=== PATIENT | male | born 1945 | race Caucasian/White ===

== ENCOUNTER 2016-05-28 20:16 | Outpatient (CLI) | payer MEDICARE, MEDICAID ==
[2016-05-28 13:08] LABS: BASOPHILS % (AUTO) 0.7 %; EOSINOPHILS # (AUTO) 0.4 10^3/uL (0.0-0.7); EOSINOPHILS % (AUTO) 6.3 %; HCT - HEMATOCRIT 39.4 % (42.0-52.0); HGB - HEMOGLOBIN 13.4 g/dL (14.0-18.0); LYMPHOCYTES # (AUTO) 0.8 10^3/uL (1.5-3.5); LYMPHOCYTES % (AUTO) 13.6 %; MEAN CORPUSCULAR HEMOGLOBIN 32.2 pg (27.0-31.0); MEAN CORPUSCULAR HGB CONC 33.9 g/dL (32.0-36.0); MEAN CORPUSCULAR VOLUME 94.9 fL (80.0-94.0); MEAN PLATELET VOLUME 10.9 fL (7.4-11.4); MONOCYTES # (AUTO) 0.4 10^3/uL (0.0-1.0); MONOCYTES % (AUTO) 6.2 %; NEUTROPHILS # (AUTO) 4.2 10^3/uL (1.5-6.6); NEUTROPHILS % (AUTO) 73.2 %; NUCLEATED RED BLOOD CELLS AUTO 0.1 /100WBC; RED BLOOD COUNT 4.15 10^6/uL (4.70-6.10); RED CELL DISTRIBUTION WIDTH 15.6 % (12.0-15.0); UNCORRECTED WHITE BLOOD COUNT 5.7 x10^3/uL; WHITE BLOOD COUNT 5.7 x10^3/uL (4.8-10.8)
[2016-05-28 13:18] LABS: ALBUMIN/GLOBULIN RATIO 1.7 (1.0-2.2); BILIRUBIN,TOTAL 0.6 mg/dL (0.2-1.0); BUN - BLOOD UREA NITROGEN 22 mg/dL (6-20); CALCIUM 9.2 mg/dL (8.5-10.3); CARBON DIOXIDE - CO2 27 mmol/L (21-32); CHLORIDE 107 mmol/L (101-111); CHOL/HDL RATIO 3.7 (<5.0); CHOLESTEROL 157 mg/dL; GFR - MDRD 73 (>89); GLUCOSE 105 mg/dL (70-100); HDL CHOLESTEROL 43 mg/dL; LDL/HDL RATIO 2.2 (<3.6); POTASSIUM 4.3 mmol/L (3.5-5.0); SODIUM 142 mmol/L (135-145); TOTAL PROTEIN 6.1 g/dL (6.7-8.2); TRIGLYCERIDES 93 mg/dL; VLDL CHOLESTEROL 19 mg/dL
== END 2016-05-28 20:17 | disposition home or self-care (01) ==
LOC: LAB.N 20:16
PROVIDERS: ATTEND Family Medicine
DX: I10 Essential (primary) hypertension (principal); E78.9 Disorder of lipoprotein metabolism, unspecified; D64.9 Anemia, unspecified
CPT/HCPCS: 36415; 80053; 80061; 85025

== ENCOUNTER 2016-08-20 06:10 | Day surgery (SDC) | payer MEDICARE, MEDICAID ==
[2016-08-20] MEDS ORDERED: LACTATED RINGERS 1,000 ML IV ONE (06:31)
[2016-08-20] MEDS ORDERED: DEXAMETHASONE 4 MG/ML VIAL IVP ONE (07:55)
[2016-08-20] MEDS ORDERED: PROPOFOL 200 MG/20 ML VIAL IVP ONE (07:55)
[2016-08-20] MEDS ORDERED: LIDOCAINE-MPF 2% 5 ML VIAL IM ONE (07:55)
[2016-08-20] MEDS ORDERED: fentaNYL 100 MCG/2 ML VIAL IVP ONE (07:55)
[2016-08-20] MEDS ORDERED: ONDANSETRON 4 MG/2 ML VIAL IVP ONE (07:55)
[2016-08-20] MEDS ORDERED: MIDAZOLAM 2 MG/2 ML VIAL IVP ONE (07:55)
[2016-08-20] MEDS ORDERED: ceFAZolin 1 GM VIAL IV ONE (07:55)
[2016-08-20] MEDS ORDERED: BUPIVACAINE 0.25% PF 30 ML VIAL SUBQ ONE ×2 (08:01)
[2016-08-20 09:41] VITALS: BP 121/80
[2016-08-20] MEDS ORDERED: ACETAMINOPHEN 325 MG TABLET PO ONE (09:43)
--- NOTE | 2016-08-20 11:47 | OPERATIVE REPORT ---
DATE OF SURGERY: 08/20/2016 00:00:00 PREOPERATIVE DIAGNOSIS: History of melanoma and skin cancer with preauricular lymphadenopathy. POSTOPERATIVE DIAGNOSIS: History of melanoma and skin cancer with preauricular lymphadenopathy. NAME OF PROCEDURE: Right preauricular lymph node biopsy. SURGEON: Sherine Hardign MD ANESTHESIA: General. INDICATION FOR PROCEDURE: This is a 70-year-old male with right-sided preauricular lymphadenopathy status post excision of ear melanoma many years ago. FINDINGS: After obtaining informed consent from the patient, he was brought into the operating room and positioned on the operating table in the supine position, taking note of pressure points. Perioperative antibiotics were administered. He was intubated by Anesthesia. He was then prepped and draped in the usual sterile fashion and a time-out was taken according to protocol. A 1.5 cm incision was created overlying the palpable lymph node and skin flaps were created. A hemorrhagic-appearing lymph node was encountered, this was partially dissected and removed as a specimen. After exercising adequate tissue, hemostasis was achieved. A portion of the hemorrhagic-appearing lymph node was left behind because this did travel deep and concern for the underlying facial nerve prevented further dissection. Adequate amount of tissue was resected for pathologic review. The area was irrigated, hemostasis was achieved, and 10 mL of local anesthetic was infiltrated. The skin was then closed with 4-0 Monocryl and Dermabond was applied. ESTIMATED BLOOD LOSS: None. COMPLICATIONS: None. JOB #: [id number] EXT JOB #:[id number] MTDD
== END 2016-08-20 06:11 | disposition home or self-care (01) ==
LOC: SDS 06:10
PROVIDERS: ATTEND Surgery
PROC: 07B00ZX Excision of Head Lymphatic, Open Approach, Diagnostic (ICD-10-PCS; principal; 2016-08-20 07:30)
DX: C77.0 Secondary and unspecified malignant neoplasm of lymph nodes of head, face and neck (principal); I10 Essential (primary) hypertension; I48.91 Unspecified atrial fibrillation; Z79.82 Long term (current) use of aspirin; Z82.49 Family history of ischemic heart disease and other diseases of the circulatory system; Z85.820 Personal history of malignant melanoma of skin; Z92.21 Personal history of antineoplastic chemotherapy
CPT/HCPCS: 38500; A9270; J7120; 88305

== ENCOUNTER 2016-10-02 15:46 | Emergency (ER) | payer MEDICARE, MEDICAID ==
[2016-10-02] MEDS ORDERED: FUROSEMIDE 20 MG/2 ML VIAL IVP STA (16:53)
--- NOTE | 2016-10-02 17:20 | XRAY Preliminary Report ---
Exam: XR Chest 1 View IMPRESSION: 1. Pulmonary venous distention and trace pleural effusion suggesting mild fluid overload. [facility] SITE ID: [id number]
--- NOTE | 2016-10-02 17:22 | XRAY Report ---
EXAM: CHEST RADIOGRAPHY EXAM DATE: 10/02/2016 05:04 PM. CLINICAL HISTORY: Dyspnea. COMPARISON: 03/25/2014. TECHNIQUE: 1 view. FINDINGS: Lungs/Pleura: Pulmonary venous distention. Trace bilateral pleural effusions. There is no overt edema . No lobar consolidation. No pneumothorax. Mediastinum: Within exam limitations, cardiomediastinal contour is normal. Other: Left chest port noted. IMPRESSION: 1. Pulmonary venous distention and trace pleural effusion suggesting mild fluid overload. [facility] Referring Provider Line: [phone] SITE ID: [id number]
[2016-10-02] MEDS ORDERED: FUROSEMIDE 20 MG/2 ML VIAL IVP ONE (17:28)
--- NOTE | 2016-10-02 17:30 | ED Physician Documentation ---
PD HPI DYSPNEA - Stated complaint Stated Complaint: SOA - Chief complaint Chief Complaint: Resp - History obtained from History obtained from: Patient - History of Present Illness Timing - onset: How many weeks ago (2) Timing - details: Gradual onset Worsened by: Exertion Associated symptoms: Bilateral edema. No: Fever, Cough, Chest pain / discomfort Recently seen: Clinic (Seen in clinic by his oncologist today for routine follow -up visit.) - Additional information Additional information: The patient is a 71-year-old male who presents with dyspnea and recent weight gain of 10-12 pounds over the past 2 weeks or so. He has noticed swelling of his feet, ankles, and calves. He denies chest pain, cough, or fever. He has a history of atrial fibrillation, but is not on anticoagulant medication. He also has history of lymphoma that was diagnosed in 2012. He has been off chemotherapy for about one year, and is reportedly in complete remission. He was seen by his oncologist today, and because of the weight gain and edema, he was advised to come to the emergency department for evaluation. He denies any prior history of coronary artery disease, congestive heart failure , or renal problems. He has chronic atrial fibrillation, with rate control using diltiazem. Review of Systems Constitutional: denies: Fever Ears: denies: Tinnitus/ringing Nose: denies: Congestion Throat: denies: Sore throat Cardiac: reports: Pedal edema. denies: Chest pain / pressure, Calf pain Respiratory: reports: Dyspnea. denies: Cough GI: denies: Abdominal Pain, Nausea, Vomiting : denies: Dysuria Skin: denies: Rash Musculoskeletal: reports: Extremity swelling. denies: Back pain Neurologic: denies: Focal weakness, Numbness, Headache PD PAST MEDICAL HISTORY - Past Medical History Past Medical History: Yes Cardiovascular: Atrial fibrillation, Other Respiratory: None Endocrine/Autoimmune: None GI: GERD : None, Renal insuffiency HEENT: None Psych: Panic attacks Musculoskeletal: None Derm: Other Other Past Medical History: lymphoma - Past Surgical History Past Surgical History: Yes General: Hiatal hernia repair HEENT: Other Derm: Skin cancer surgery - Present Medications Home Medications: Ambulatory Orders Medication Instructions Recorded Confirmed Terazosin HCl 10 mg PO DAILY 04/21/13 10/02/16 Docusate Sodium [Stool Softener] 300 mg PO DAILY 03/01/14 10/02/16 Aspirin [Aspir 81] 81 mg PO DAILY 04/06/14 10/02/16 diltiaZEM CD [Cardizem Cd] 240 mg PO DAILY 04/06/14 10/02/16 Furosemide [Lasix] 20 mg PO DAILY #30 tablet 10/02/16 Potassium Chloride [K-Dur] 20 meq PO DAILY #30 tablet 10/02/16 - Allergies Allergies/Adverse Reactions: Allergies Allergy/AdvReac Type Severity Reaction Status Date / Time No Known Drug Allergies Allergy Verified 08/20/16 06:53 - Living Situation Living Situation: reports: With spouse/s.o. Living Arrangement: reports: At home - Social History Does the pt smoke?: No Smoking Status: Never smoker Does the pt drink ETOH?: No Does the pt have substance abuse?: No - Immunizations Immunizations are current?: Yes Immunizations: TDAP current <10years PD ED PE NORMAL - Vitals Vital signs reviewed: Yes (mildly tachycardic) - General General: Alert and oriented X 3, Well developed/nourished - HEENT HEENT: Atraumatic, EOMI, Pharynx benign - Neck Neck: No adenopathy, No JVD - Cardiac Cardiac: No murmur, Other (Slightly rapid rate, irregularly irregular rhythm.) - Respiratory Respiratory: No respiratory distress, Other (Very faint rales in the bases bilaterally. Port-A-Cath in the left anterior chest wall.) - Abdomen Abdomen: Soft, Non tender - Back Back: No CVA TTP - Derm Derm: No rash, Other (There is a darkly pigmented skin mass of about 1 cm diameter in the right preauricular region.) - Extremities Extremities: No calf tenderness / cord, Other (2+ pedal edema bilaterally.) - Neuro Neuro: Alert and oriented X 3, No motor deficit, No sensory deficit Results - Vitals Vitals: Vital Signs - 24 hr 10/02/16 10/02/16 10/02/16 15:49 19:39 19:56 Temperature 36.4 C L 36.9 C Heart Rate 104 H 93 96 Respiratory 22 17 22 Rate Blood Pressure 123/87 H 109/79 113/72 O2 Saturation 98 94 96 Oxygen O2 Source Room air - EKG (time done) 17:06 Rate: Rate (enter#) (94) Rhythm: Atrial fibrillation, Other (PVC's) [place]: Normal Intervals: RBBB Ischemia: Q waves (in inferior leads III and aVF, consistent with old [place].) Compare to prior EKG: Changed from prior EKG (Compared to 10/27/15, no longer in sinus bradycardia.) Computer interpretation: Agree with computer - Labs Labs: Laboratory Tests 10/02/16 10/02/16 10/02/16 17:20 17:20 17:20 WBC 6.4 RBC 3.78 L Hgb 11.8 L Hct 35.3 L MCV 93.5 MCH 31.2 H MCHC 33.3 RDW 15.0 Plt Count 104 L MPV 10.9 Neut # 5.0 Lymph # 0.5 L [place] # 0.6 Eos # 0.3 Baso # 0.0 Absolute Nucleated RBC 0.00 Nucleated RBCs 0.0 Sodium 140 Potassium 4.5 Chloride 107 Carbon Dioxide 23 Anion Gap 10.0 BUN 28 H Creatinine 1.2 Estimated GFR (MDRD) 59 L Glucose 103 H Calcium 9.0 Total Bilirubin 0.7 AST 24 ALT 28 Alkaline Phosphatase 79 Troponin I < 0.04 B-Natriuretic Peptide Total Protein 6.2 L Albumin 3.7 Globulin 2.5 Albumin/Globulin Ratio 1.5 Lipase 17 L Urine Color Urine Clarity Urine pH Ur Specific [place] Urine Protein Urine Glucose (UA) Urine Ketones Urine Occult Blood Urine Nitrite Urine Bilirubin Urine Urobilinogen Ur Leukocyte Esterase Ur Microscopic Review Urine Culture Comments 10/02/16 10/02/16 17:20 18:10 WBC RBC Hgb Hct MCV MCH MCHC RDW Plt Count MPV Neut # Lymph # [place] # Eos # Baso # Absolute Nucleated RBC Nucleated RBCs Sodium Potassium Chloride Carbon Dioxide Anion Gap BUN Creatinine Estimated GFR (MDRD) Glucose Calcium Total Bilirubin AST ALT Alkaline Phosphatase Troponin I B-Natriuretic Peptide 965 H Total Protein Albumin Globulin Albumin/Globulin Ratio Lipase Urine Color YELLOW Urine Clarity CLEAR Urine pH 6.0 Ur Specific [place] 1.010 Urine Protein NEGATIVE Urine Glucose (UA) NEGATIVE Urine Ketones NEGATIVE Urine Occult Blood NEGATIVE Urine Nitrite NEGATIVE Urine Bilirubin NEGATIVE Urine Urobilinogen 0.2 (NORMAL) Ur Leukocyte Esterase NEGATIVE Ur Microscopic Review NOT INDICATED Urine Culture Comments NOT INDICATED - Rads (name of study) One view chest x-ray Radiology: Prelim report reviewed, EMP read contemporaneously, See rad report ( Pulmonary venous distention and trace pleural effusion suggesting mild fluid overload.) PD MEDICAL DECISION MAKING - ED course Complexity details: reviewed results, re-evaluated patient, considered differential, d/w patient, d/w family ED course: The patient's presentation is most consistent with [id number] congestive heart failure, in a person with chronic atrial fibrillation. His BNP is elevated at 965. His CBC and chemistry panel are otherwise unremarkable. His electrocardiogram does not reveal evidence of acute ischemic abnormality, and his troponin level is normal. Pulmonary embolus was considered, especially given the fact that he has atrial fibrillation without being on anticoagulant medication. However clinically, pulmonary embolus is less likely. Treatment in the emergency department included administration of Lasix 20 mg IV. He subsequently had urine output of approximately 1.5 L. He felt subjectively improved, and demonstrated ability to lie supine without shortness of breath. I discussed with him and his the diagnosis, treatment and outpatient follow-up, as well as potentially worrisome signs or symptoms that should prompt reevaluation in the emergency department. He is being discharged with prescriptions for Lasix, as well as supplemental potassium. Departure - Departure Disposition: 01 Home, Self Care Clinical Impression: Congestive heart failure Qualifiers: Congestive heart failure type: unspecified congestive heart failure type Congestive heart failure chronicity: acute Qualified Code(s): I50.9 - Heart failure, unspecified Atrial fibrillation Qualifiers: Atrial fibrillation type: chronic Qualified Code(s): I48.2 - Chronic atrial fibrillation Condition: Stable Instructions: ED CHF General, ED Afib Follow-Up: Reji Bronson MD [Credentialed Staff Provider] - Prescriptions: Potassium Chloride [K-Dur] 20 meq PO DAILY #30 tablet Furosemide [Lasix] 20 mg PO DAILY #30 tablet Comments: Take Lasix(furosemide) daily as prescribed. Takes supplemental potassium daily as prescribed. When yourself daily to assess response to diuretic. Follow up with your primary physician next week as scheduled. Return to the emergency department if you develop increasing shortness of breath , or otherwise worsening symptoms. Discharge Date/Time: 10/02/16 19:56
[2016-10-02 17:36] LABS: BASOPHILS % (AUTO) 0.2 %; EOSINOPHILS # (AUTO) 0.3 10^3/uL (0.0-0.7); EOSINOPHILS % (AUTO) 4.9 %; HCT - HEMATOCRIT 35.3 % (42.0-52.0); HGB - HEMOGLOBIN 11.8 g/dL (14.0-18.0); LYMPHOCYTES # (AUTO) 0.5 10^3/uL (1.5-3.5); LYMPHOCYTES % (AUTO) 8.4 %; MEAN CORPUSCULAR HEMOGLOBIN 31.2 pg (27.0-31.0); MEAN CORPUSCULAR HGB CONC 33.3 g/dL (32.0-36.0); MEAN CORPUSCULAR VOLUME 93.5 fL (80.0-94.0); MEAN PLATELET VOLUME 10.9 fL (7.4-11.4); MONOCYTES # (AUTO) 0.6 10^3/uL (0.0-1.0); MONOCYTES % (AUTO) 9.3 %; NEUTROPHILS % (AUTO) 77.2 %; RED BLOOD COUNT 3.78 10^6/uL (4.70-6.10); UNCORRECTED WHITE BLOOD COUNT 6.4 x10^3/uL; WHITE BLOOD COUNT 6.4 x10^3/uL (4.8-10.8)
[2016-10-02 17:45] LABS: ALBUMIN/GLOBULIN RATIO 1.5 (1.0-2.2); BILIRUBIN,TOTAL 0.7 mg/dL (0.2-1.0); CREATININE 1.2 mg/dL (0.6-1.2); POTASSIUM 4.5 mmol/L (3.5-5.0); TOTAL PROTEIN 6.2 g/dL (6.7-8.2)
[2016-10-02 18:15] LABS: BILIRUBIN,URINE NEGATIVE (NEGATIVE)
[2016-10-02 18:19] LABS: UA CHARGE (STRIP ONLY) YES; UR CULTURE IF IND NOT INDICATED
[2016-10-02 19:59] VITALS: BP 113/72
== END 2016-10-02 19:56 | disposition home or self-care (01) ==
LOC: ED 15:46
DX: I50.9 Heart failure, unspecified (principal); I48.2 Chronic atrial fibrillation; I45.10 Unspecified right bundle-branch block; R94.31 Abnormal electrocardiogram [ECG] [EKG]; K21.9 Gastro-esophageal reflux disease without esophagitis; Z79.82 Long term (current) use of aspirin
CPT/HCPCS: 71010; 80053; 81001; 81003; 83690; 83880; 84484; 85025; 87086; 93005; 99283

== ENCOUNTER 2016-10-10 14:07 | Outpatient (CLI) | payer MEDICARE, MEDICAID ==
[2016-10-10 19:25] LABS: HCT - HEMATOCRIT 37.3 % (42.0-52.0); HGB - HEMOGLOBIN 12.3 g/dL (14.0-18.0); MEAN CORPUSCULAR HEMOGLOBIN 30.8 pg (27.0-31.0); MEAN CORPUSCULAR VOLUME 93.1 fL (80.0-94.0); MEAN PLATELET VOLUME 11.5 fL (7.4-11.4); WHITE BLOOD COUNT 5.6 x10^3/uL (4.8-10.8)
[2016-10-10 19:30] LABS: ALBUMIN/GLOBULIN RATIO 1.6 (1.0-2.2); CALCIUM 9.2 mg/dL (8.5-10.3); CREATININE 1.3 mg/dL (0.6-1.2); POTASSIUM 4.5 mmol/L (3.5-5.0); TOTAL PROTEIN 6.4 g/dL (6.7-8.2)
== END 2016-10-10 14:08 | disposition home or self-care (01) ==
LOC: LAB.N 14:07
PROVIDERS: ATTEND Family Medicine
DX: I50.23 Acute on chronic systolic (congestive) heart failure (principal)
CPT/HCPCS: 36415; 80053; 83880

== ENCOUNTER 2016-10-16 19:08 | Emergency (ER) | payer MEDICARE, MEDICAID ==
[2016-10-16] MEDS ORDERED: FUROSEMIDE 20 MG/2 ML VIAL IVP STA (20:09)
[2016-10-16] MEDS ORDERED: FUROSEMIDE 20 MG/2 ML VIAL IVP ONE (20:10)
== END 2016-10-16 21:22 | disposition home or self-care (01) ==
DX: I50.9 Heart failure, unspecified (principal); I48.2 Chronic atrial fibrillation; K21.9 Gastro-esophageal reflux disease without esophagitis; Z79.82 Long term (current) use of aspirin

== ENCOUNTER 2016-10-27 14:47 | Emergency (ER) | payer MEDICARE, MEDICAID ==
--- NOTE | 2016-10-27 15:33 | ED Physician Documentation ---
PD HPI CHEST PAIN - Stated complaint Stated Complaint: CHEST BURNING - Chief complaint Chief Complaint: Abd Pain - History obtained from History obtained from: Patient - History of Present Illness Timing - onset: Today Timing - onset during: Eating (he had eaten small amount and then had some V-8 juice, with onset of substernal chest pressure soon following that. Not worse with breathing nor walking.) Timing - details: Gradual onset, Still present, Waxing and waning. No: Now resolved Quality: Pressure, Aching, Pain Location: Substernal, Epigastric Radiation: No: Jaw, Neck, Back, Abdominal, Left upper extremity, Right upper extremity, Other Improved by: Antacids Worsened by: No: Exertion (walking some since onset), Inspiration, Movement, Palpation, Position Associated symptoms: No: Shortness of air, Diaphoresis, Nausea, Vomiting, Feeling faint / dizzy, General Weakness, Palpitations, Cough Similar symptoms before: Has not had sx before Recently seen: Not recently seen Review of Systems Constitutional: denies: Fever, Chills Nose: denies: Rhinorrhea / runny nose, Congestion Throat: denies: Sore throat Cardiac: reports: Chest pain / pressure (just today, has not had any exertional symptoms in recent past.). denies: Palpitations, Pedal edema, Calf pain Respiratory: denies: Cough GI: denies: Nausea, Vomiting, Diarrhea Skin: denies: Rash, Lesions Musculoskeletal: reports: Extremity swelling (had some swelling in lower legs/ ankles, which is improved with diuretics the past couple of weeks.). denies: Neck pain, Back pain Neurologic: denies: Focal weakness, Numbness, Near syncope Immunocompromised: denies: Immunocompromised PD PAST MEDICAL HISTORY - Past Medical History Cardiovascular: Atrial fibrillation, Other Respiratory: None Endocrine/Autoimmune: None GI: GERD : None, Renal insuffiency HEENT: None Psych: Panic attacks Musculoskeletal: None Derm: Other - Past Surgical History Past Surgical History: Yes General: Hiatal hernia repair HEENT: Other Derm: Skin cancer surgery - Present Medications Home Medications: Ambulatory Orders Medication Instructions Recorded Confirmed Terazosin HCl 10 mg PO DAILY 04/21/13 10/02/16 Docusate Sodium [Stool Softener] 300 mg PO DAILY 03/01/14 10/02/16 Aspirin [Aspir 81] 81 mg PO DAILY 04/06/14 10/02/16 diltiaZEM CD [Cardizem Cd] 240 mg PO DAILY 04/06/14 10/02/16 Furosemide [Lasix] 20 mg PO BID 10/27/16 10/27/16 Spironolactone 25 mg PO BID 10/27/16 10/27/16 - Allergies Allergies/Adverse Reactions: Allergies Allergy/AdvReac Type Severity Reaction Status Date / Time No Known Drug Allergies Allergy Verified 10/27/16 15:02 - Social History Does the pt smoke?: No Smoking Status: Never smoker Does the pt drink ETOH?: No Does the pt have substance abuse?: No - Immunizations Immunizations are current?: Yes Immunizations: TDAP current <10years PD ED PE NORMAL - Vitals Vital signs reviewed: Yes - General General: Alert and oriented X 3, No acute distress, Well developed/nourished - HEENT HEENT: Ears normal, Moist mucous membranes, Pharynx benign - Neck Neck: Supple, no meningeal sign, No adenopathy - Cardiac Cardiac: No murmur. No: RRR (irregular but good rate. ) - Respiratory Respiratory: Clear bilaterally - Abdomen Abdomen: Normal bowel sounds, Soft, Non distended, No organomegaly, Other (mild epigastric tenderness without guarding. ) - Back Back: No CVA TTP - Derm Derm: Normal color, Warm and dry - Extremities Extremities: Normal ROM s pain, No edema, No calf tenderness / cord - Neuro Neuro: Alert and oriented X 3, No motor deficit, Normal speech - Psych Psych: Normal mood, Normal affect Results - Vitals Vitals: Oxygen O2 Source Room air - EKG (time done) 15:12 Rate: Rate (enter#) (77) Rhythm: Atrial fibrillation [place]: Normal Intervals: Wide QRS QRS: Normal Ischemia: No: ST elevation c/w ischemia, ST depression - Labs Labs: Laboratory Tests 10/27/16 10/27/16 10/27/16 15:28 15:28 15:28 WBC 5.9 RBC 4.43 L Hgb 13.3 L Hct 39.8 L MCV 89.9 MCH 30.2 MCHC 33.5 RDW 15.4 H Plt Count 122 L MPV 11.0 Neut # 4.6 Lymph # 0.5 L [place] # 0.4 Eos # 0.4 Baso # 0.0 Absolute Nucleated RBC 0.00 Nucleated RBCs 0.0 Manual Slide Review Indicated Platelet Estimate DECREASED (<130,000) Platelet Morphology RARE GIANT PLATELETS RBC Morph Micro Appear NORMAL APPEARANCE Sodium 134 L Potassium 4.9 Chloride 99 L Carbon Dioxide 29 Anion Gap 6.0 BUN 49 H Creatinine 1.7 H Estimated GFR (MDRD) 40 L Glucose 230 H Calcium 9.4 Magnesium Total Bilirubin 1.0 AST 31 ALT 32 Alkaline Phosphatase 86 Troponin I < 0.04 Total Protein 7.0 Albumin 4.3 Globulin 2.7 Albumin/Globulin Ratio 1.6 Lipase 24 10/27/16 15:28 WBC RBC Hgb Hct MCV MCH MCHC RDW Plt Count MPV Neut # Lymph # [place] # Eos # Baso # Absolute Nucleated RBC Nucleated RBCs Manual Slide Review Platelet Estimate Platelet Morphology RBC Morph Micro Appear Sodium Potassium Chloride Carbon Dioxide Anion Gap BUN Creatinine Estimated GFR (MDRD) Glucose Calcium Magnesium 2.5 Total Bilirubin AST ALT Alkaline Phosphatase Troponin I Total Protein Albumin Globulin Albumin/Globulin Ratio Lipase PD MEDICAL DECISION MAKING - ED course Complexity details: reviewed results (creatinine is higher than usual, with it 1.7 and typically 1.2. Also BP relatively low ( says it is usually somewhat low at 95-110 systolic). He feels okay getting to the ER. Presume overly diuresed (though his breathing is better) and also likely effect of the recently added Tamsulosin. ), considered differential, d/w patient Departure - Departure Disposition: 01 Home, Self Care Clinical Impression: Elevated serum creatinine, Epigastric discomfort, Low blood pressure, not hypotension Condition: Stable Record reviewed to determine appropriate education?: Yes Instructions: ED Epigastric Pain [facility] Follow-Up: Reji Bronson MD [Primary Care Provider] - Comments: I would adjust some of your medications for now: take the Terazosin every other day as your BP is a relatively low. Check your BP daily to see how it is trending. Your Creatinine is a bit higher than usual, which can be an effect of too much diuretic, so cut down the Spironolactone to just once daily. Other medications the same. Follow up PMD as scheduled in about 2 weeks. For the "heartburn" pain, you can use antacids as needed. Recheck if persistent symptoms , as may need to start a med to reduce stomach acids. Not necessarily if a single episode and doesn't recur. Discharge Date/Time: 10/27/16 17:15
[2016-10-27 15:42] LABS: BASOPHILS % (AUTO) 0.8 %; EOSINOPHILS # (AUTO) 0.4 10^3/uL (0.0-0.7); EOSINOPHILS % (AUTO) 6.1 %; HCT - HEMATOCRIT 39.8 % (42.0-52.0); HGB - HEMOGLOBIN 13.3 g/dL (14.0-18.0); LYMPHOCYTES # (AUTO) 0.5 10^3/uL (1.5-3.5); LYMPHOCYTES % (AUTO) 8.7 %; MEAN CORPUSCULAR HEMOGLOBIN 30.2 pg (27.0-31.0); MEAN CORPUSCULAR HGB CONC 33.5 g/dL (32.0-36.0); MEAN CORPUSCULAR VOLUME 89.9 fL (80.0-94.0); MONOCYTES # (AUTO) 0.4 10^3/uL (0.0-1.0); MONOCYTES % (AUTO) 6.2 %; NEUTROPHILS # (AUTO) 4.6 10^3/uL (1.5-6.6); NEUTROPHILS % (AUTO) 78.2 %; RED BLOOD COUNT 4.43 10^6/uL (4.70-6.10); RED CELL DISTRIBUTION WIDTH 15.4 % (12.0-15.0); UNCORRECTED WHITE BLOOD COUNT 5.9 x10^3/uL; WHITE BLOOD COUNT 5.9 x10^3/uL (4.8-10.8)
[2016-10-27 15:53] LABS: ALBUMIN/GLOBULIN RATIO 1.6 (1.0-2.2); CALCIUM 9.4 mg/dL (8.5-10.3); CREATININE 1.7 mg/dL (0.6-1.2); POTASSIUM 4.9 mmol/L (3.5-5.0)
[2016-10-27 15:58] LABS: PLATELET ESTIMATE, MANUAL DECREASED (<130,000) (NORMAL)
[2016-10-27 15:59] LABS: PLATELET MORPHOLOGY RARE GIANT PLATELETS (NORMAL)
[2016-10-27] MEDS ORDERED: MAG HYDROX/AL HYDROX/SIMETH 30 ML UDC PO STA (16:05)
[2016-10-27] MEDS ORDERED: MAG HYDROX/AL HYDROX/SIMETH 30 ML UDC ONE ×2 (16:16→16:23)
[2016-10-27 17:14] VITALS: BP 103/60
== END 2016-10-27 17:15 | disposition home or self-care (01) ==
LOC: ED 14:47
DX: R10.13 Epigastric pain (principal); R79.89 Other specified abnormal findings of blood chemistry; R03.1 Nonspecific low blood-pressure reading; I48.91 Unspecified atrial fibrillation; I45.10 Unspecified right bundle-branch block; R94.31 Abnormal electrocardiogram [ECG] [EKG]; K21.9 Gastro-esophageal reflux disease without esophagitis
CPT/HCPCS: 36415; 80053; 83690; 83735; 84484; 85025; 93005; 99283; 99284; A9270

== ENCOUNTER 2016-11-09 08:55 | Outpatient (CLI) | payer MEDICARE, MEDICAID ==
[2016-11-09 13:24] LABS: CALCIUM 9.6 mg/dL (8.5-10.3); CREATININE 1.6 mg/dL (0.6-1.2); POTASSIUM 4.6 mmol/L (3.5-5.0)
== END 2016-11-09 08:56 | disposition home or self-care (01) ==
LOC: LAB.N 08:55
PROVIDERS: ATTEND Family Medicine
DX: R60.0 Localized edema (principal)
CPT/HCPCS: 36415; 80048; 83880

== ENCOUNTER 2016-11-30 08:25 | Outpatient (CLI) | payer MEDICARE, MEDICAID ==
[2016-11-30 13:16] LABS: CREATININE 1.2 mg/dL (0.6-1.2); POTASSIUM 4.1 mmol/L (3.5-5.0)
== END 2016-11-30 08:26 | disposition home or self-care (01) ==
LOC: LAB.N 08:25
PROVIDERS: ATTEND Family Medicine
DX: R60.0 Localized edema (principal)
CPT/HCPCS: 36415; 80048; 83880

== ENCOUNTER 2016-12-21 10:54 | Outpatient (CLI) | payer MEDICARE, MEDICAID ==
[2016-12-21 11:24] LABS: CREATININE 1.2 mg/dL (0.6-1.2)
[2016-12-21] MEDS ORDERED: IOPAMIDOL-300 50 ML VIAL PO ONE (12:43)
[2016-12-21] MEDS ORDERED: IOPAMIDOL-300 100 ML VIAL IVP ONE (12:43)
--- NOTE | 2016-12-21 14:54 | CT Report ---
CT CHEST WITH CONTRAST: 12/21/2016 CLINICAL INDICATION: Melanoma, evaluate for metastatic disease. COMPARISON: 07/30/2016 TECHNIQUE: Axial CT images of the chest were obtained with 100 mL Isovue-300 intravenously. FINDINGS: The heart and great vessels are unremarkable. No hilar or mediastinal lymphadenopathy is present. There has been interval development of multiple bilateral pulmonary nodules, measuring up t o 2.2 cm in diameter, compatible with metastases. Previously noted trace left effusion has resolved. No pneumothorax. IMPRESSION: INTERVAL DEVELOPMENT OF MULTIPLE PULMONARY NODULES, MEASURING UP TO 2.2 CM IN DIAMETER, COMPATIBLE WITH METASTASES. NO EVIDENT ADENOPATHY. In accordance with CT protocol optimization, one or more of the following dose reduction techniques w ere utilized for this exam: automated exposure control, adjustment of mA and/or KV based on patient size, or use of iterative reconstructive technique. JOB #: [id number] EXT JOB #:[id number]
--- NOTE | 2016-12-21 14:56 | CT Report ---
CT ABDOMEN AND PELVIS WITH CONTRAST: 12/21/2016 CLINICAL INDICATION: Melanoma. COMPARISON: 07/30/2016 TECHNIQUE: Axial CT images of the abdomen and pelvis were obtained with 100 mL Isovue-300 intravenou sly as well as oral contrast. FINDINGS: ABDOMEN: The liver demonstrates diffuse fatty infiltration. Small cyst in the spleen is stable. Th e pancreas, kidneys, and adrenal glands are unremarkable. The gallbladder is not dilated. Haziness of the mesentery is stable from previous. No bowel dilatation, free gas, or free fluid is present. No abdominal adenopathy is seen. PELVIS: Trace free fluid in the pelvis is stable. No new pelvic adenopathy is seen. Osseous structures demonstrate degenerative changes. IMPRESSION: FATTY INFILTRATION OF THE LIVER. NO EVIDENCE OF ADENOPATHY. In accordance with CT protocol optimization, one or more of the following dose reduction techniques w ere utilized for this exam: automated exposure control, adjustment of mA and/or KV based on patient size, or use of iterative reconstructive technique. 14:9:30 JOB #: [id number] EXT JOB #:[id number]
== END 2016-12-21 10:55 | disposition home or self-care (01) ==
LOC: LAB 10:54
PROVIDERS: ATTEND Radiology Radiation Oncology
DX: R91.8 Other nonspecific abnormal finding of lung field (principal); K76.0 Fatty (change of) liver, not elsewhere classified
CPT/HCPCS: 36415; 71260; 74177; 82565; Q9967

== ENCOUNTER 2017-05-08 15:52 | Emergency (ER) | payer MEDICARE, MEDICAID ==
[2017-05-08] MEDS ORDERED: diltiaZEM INJ 5 MG/ML VIAL IVP STA ×3 (16:45→20:12)
--- NOTE | 2017-05-08 16:46 | ED Physician Documentation ---
PD HPI DYSPNEA - Stated complaint Stated Complaint: ANXIETY - Chief complaint Chief Complaint: Cardiac - History obtained from History obtained from: Patient - History of Present Illness Timing - onset: How many hours ago (onset of feeling dyspnea and chest pressure (not sharp pain) and feeling anxious. Seemed to be abrupt onset. Has had some edema in legs but not too much. [place] [facility] [place] of [place] meds. Heart rate noted to be 135-145, and referred to the ED.), Today Timing - onset during: Light activity Timing - details: Abrupt onset, Still present, Waxing and waning. No: Now resolved Inciting event(s): No: URI, Immobilization/travel, Emotional event Improved by: Rest Worsened by: Exertion (just walking in the hospital clinic) Associated symptoms: Chest pain / discomfort, Bilateral edema (mild), Anxiety. No: Fever, Cough, Wheezing, Palpitations, Unilateral edema Similar symptoms before: Diagnosis (had similar in the past with atrial fib episodes. No history of CAD/[place].) Recently seen: [place] [place] Review of Systems Constitutional: denies: Fever, Chills Nose: denies: Rhinorrhea / runny nose, Congestion Throat: denies: Sore throat Cardiac: reports: Chest pain / pressure (pressure), Pedal edema. denies: Palpitations, Calf pain Respiratory: reports: Dyspnea. denies: Cough, Hemoptysis, Wheezing GI: denies: Abdominal Pain, Nausea, Vomiting, Diarrhea : denies: Dysuria, Frequency Skin: denies: Rash, Lesions Neurologic: denies: Generalized weakness, Focal weakness, Numbness, Near syncope PD PAST MEDICAL HISTORY - Past Medical History Cardiovascular: Atrial fibrillation, Other Respiratory: None Endocrine/Autoimmune: None GI: GERD : None, Renal insuffiency HEENT: None Psych: Panic attacks Musculoskeletal: None Derm: Other - Past Surgical History Past Surgical History: Yes General: Hiatal hernia repair HEENT: Other Derm: Skin cancer surgery - Present Medications Home Medications: Ambulatory Orders Medication Instructions Recorded Confirmed Terazosin HCl 10 mg PO DAILY 04/21/13 05/08/17 Docusate Sodium [Stool Softener] 300 mg PO DAILY 03/01/14 05/08/17 Aspirin [Aspir 81] 81 mg PO DAILY 04/06/14 05/08/17 [id number] CD [Cardizem Cd] 240 mg PO DAILY 04/06/14 05/08/17 Furosemide [Lasix] 20 mg PO DAILY 10/27/16 05/08/17 Senna [Senokot] 8.6 mg PO DAILY PRN 12/04/16 05/08/17 Multivit with Calcium,Iron,Min 1 each PO DAILY 01/22/17 05/08/17 [Multiple Vitamins For Women] - Allergies Allergies/Adverse Reactions: Allergies Allergy/AdvReac Type Severity Reaction Status Date / Time No Known Drug Allergies Allergy Verified 05/08/17 16:06 - Social History Does the pt smoke?: No Smoking Status: Never smoker Does the pt drink ETOH?: No Does the pt have substance abuse?: No - Family History Family history: reports: Non contributory - Immunizations Immunizations are current?: Yes Immunizations: TDAP current <10years PD ED PE NORMAL - Vitals Vital signs reviewed: Yes - General General: Alert and oriented X 3, Well developed/nourished - HEENT HEENT: Pharynx benign - Neck Neck: Supple, no meningeal sign, No adenopathy - Cardiac Cardiac: No murmur. No: RRR (irregular and fast rate about 135-145) - Respiratory Respiratory: Clear bilaterally (fine crackles in the bases) - Abdomen Abdomen: Soft, Non tender - Male Male : Deferred - Rectal Rectal: Deferred - Back Back: No CVA TTP - Derm Derm: Normal color - Extremities Extremities: No deformity, No tenderness to palpate - Neuro Neuro: Alert and oriented X 3, No motor deficit, Normal speech Eye Opening: Spontaneous Motor: Obeys Commands Verbal: Oriented GCS Score: 15 - Psych Psych: Normal mood Results - Vitals Vitals: Vital Signs - 24 hr 05/08/17 05/08/17 05/08/17 16:00 17:38 19:25 Temperature 36.1 C L Heart Rate 135 H 99 94 Respiratory 20 24 22 Rate Blood Pressure 127/81 H 102/87 H 109/75 O2 Saturation 93 95 98 05/08/17 19:40 Temperature 36.5 C Heart Rate 120 H Respiratory 28 H Rate Blood Pressure 109/85 H O2 Saturation 95 Oxygen O2 Source Room air - EKG (time done) 16 Rate: Rate (enter#) (125) Rhythm: Atrial fibrillation QRS: LVH, Poor R wave progression Ischemia: ST depression. No: ST elevation c/w ischemia Compare to prior EKG: Unchanged from prior EKG (from October 2016) - Labs Labs: Laboratory Tests 05/08/17 05/08/17 05/08/17 16:35 16:35 16:35 WBC 8.0 RBC 3.48 L Hgb 10.3 L Hct 31.4 L MCV 90.3 MCH 29.7 MCHC 32.9 RDW 15.7 H Plt Count 220 MPV 10.6 Neut # 5.3 Lymph # 0.7 L [place] # 0.6 Eos # 1.3 H Baso # 0.1 Absolute Nucleated RBC 0.00 Nucleated RBC % 0.0 Sodium 135 Potassium 3.9 Chloride 102 Carbon Dioxide 20 L Anion Gap 13.0 BUN 34 H Creatinine 1.3 H Estimated GFR (MDRD) 54 L Glucose 125 H Calcium 9.1 Magnesium Total Bilirubin 0.5 AST 23 ALT 29 Alkaline Phosphatase 76 Troponin I 1.21 H* B-Natriuretic Peptide Total Protein 6.0 L Albumin 2.8 L Globulin 3.2 Albumin/Globulin Ratio 0.9 L Lipase 17 L 05/08/17 05/08/17 16:35 16:35 WBC RBC Hgb Hct MCV MCH MCHC RDW Plt Count MPV Neut # Lymph # [place] # Eos # Baso # Absolute Nucleated RBC Nucleated RBC % Sodium Potassium Chloride Carbon Dioxide Anion Gap BUN Creatinine Estimated GFR (MDRD) Glucose Calcium Magnesium 2.2 Total Bilirubin AST ALT Alkaline Phosphatase Troponin I B-Natriuretic Peptide 1809 H Total Protein Albumin Globulin Albumin/Globulin Ratio Lipase - Rads (name of study) chest Radiology: Prelim report reviewed (enlarged heart. No significant CHF. ), EMP read contemporaneously PD MEDICAL DECISION MAKING - ED course Complexity details: re-evaluated patient (heart rate improved with IV meds. He is resting comfortably. ), considered differential (feeling anxious, chest discomfort and some dyspnea the past day. Has rapid atrial fib, elevated BNP with crackles on lung sounds but not significant CHF on xray. Has elevated Troponin more than would be likely with troponin leak from afib. Concern for acut nonstemi, vs. rapid afib with myocardial ischemia. ), d/w patient, d/w family Departure - Departure Disposition: 02 Transfer Acute Care Hosp Clinical Impression: Atrial fibrillation with rapid ventricular response Chest pain Qualifiers: Chest pain type: precordial pain Qualified Code(s): R07.2 - Precordial pain Dyspnea Qualifiers: Dyspnea type: shortness of breath Qualified Code(s): R06.02 - Shortness of breath; R06.00 - Dyspnea, unspecified; R06.01 - Orthopnea Congestive heart failure Qualifiers: Congestive heart failure type: unspecified Congestive heart failure chronicity : acute on chronic Qualified Code(s): I50.9 - Heart failure, unspecified Condition: Stable Record reviewed to determine appropriate education?: Yes
[2017-05-08 16:48] LABS: BASOPHILS # (AUTO) 0.1 10^3/uL (0.0-0.1); BASOPHILS % (AUTO) 0.8 %; EOSINOPHILS # (AUTO) 1.3 10^3/uL (0.0-0.7); EOSINOPHILS % (AUTO) 16.1 %; HGB - HEMOGLOBIN 10.3 g/dL (14.0-18.0); LYMPHOCYTES # (AUTO) 0.7 10^3/uL (1.5-3.5); LYMPHOCYTES % (AUTO) 8.5 %; MEAN CORPUSCULAR HEMOGLOBIN 29.7 pg (27.0-31.0); MEAN CORPUSCULAR HGB CONC 32.9 g/dL (32.0-36.0); MEAN CORPUSCULAR VOLUME 90.3 fL (80.0-94.0); MEAN PLATELET VOLUME 10.6 fL (7.4-11.4); MONOCYTES # (AUTO) 0.6 10^3/uL (0.0-1.0); MONOCYTES % (AUTO) 7.9 %; NEUTROPHILS # (AUTO) 5.3 10^3/uL (1.5-6.6); NEUTROPHILS % (AUTO) 66.7 %; PLT - PLATELET COUNT 220 10^3/uL (130-450); RED BLOOD COUNT 3.48 10^6/uL (4.70-6.10); RED CELL DISTRIBUTION WIDTH 15.7 % (12.0-15.0)
[2017-05-08 17:00] LABS: ALBUMIN 2.8 g/dL (3.2-5.5); ALBUMIN/GLOBULIN RATIO 0.9 (1.0-2.2); BILIRUBIN,TOTAL 0.5 mg/dL (0.2-1.0); CALCIUM 9.1 mg/dL (8.5-10.3); CREATININE 1.3 mg/dL (0.6-1.2)
--- NOTE | 2017-05-08 17:02 | XRAY Report ---
EXAM: CHEST RADIOGRAPHY EXAM DATE: 05/08/2017 04:49 PM. CLINICAL HISTORY: Irregular heart rate. Anxiety. Shortness of breath. COMPARISON: 03/25/[address] 12/21/2016. TECHNIQUE: 1 view. FINDINGS: Lungs/Pleura: Scattered pulmonary nodules in the mid to lower lungs, largest right base, 2.7 cm acros s, larger than previous CT. No consolidation. No pleural effusion. No pneumothorax. Mediastinum: Cardiomegaly. Other: No bony abnormality noted. Stable left subclavian central line. IMPRESSION: 1. Large heart without CHF. 2. Enlarging bilateral pulmonary nodules. [facility] Referring Provider Line: [phone] SITE ID: [id number]
[2017-05-08] MEDS ORDERED: FUROSEMIDE 20 MG/2 ML VIAL IVP STA (18:13)
[2017-05-08] MEDS ORDERED: ASPIRIN CHEW 81 MG TABLET PO STA (18:13)
[2017-05-08] MEDS ORDERED: HEPARIN 5,000 UNIT/ML VIAL IVP STA (18:59)
[2017-05-08] MEDS ORDERED: HEPARIN 25000UNITS/500ML (D5W) 25,000 UNIT/500 ML BAG IV STA (18:59)
[2017-05-08 21:38] VITALS: BP 105/71
== END 2017-05-08 21:41 | disposition short-term general hospital (02) ==
LOC: ED 15:52
DX: I48.91 Unspecified atrial fibrillation (principal); Z79.82 Long term (current) use of aspirin; I51.7 Cardiomegaly; R91.8 Other nonspecific abnormal finding of lung field; Z79.899 Other long term (current) drug therapy
CPT/HCPCS: 36415; 71045; 80053; 83690; 83735; 83880; 84484; 85025; 93005; 96365; 96366; 96375; 96376; 99285; A9270

== ENCOUNTER 2017-05-13 08:00 | Outpatient (CLI) | payer MEDICARE, MEDICAID | END 2017-05-13 08:01 | disposition home or self-care (01) | LOC: LAB.N 08:00 | PROVIDERS: ATTEND Physician Assistant Medical | DX: Z79.01 Long term (current) use of anticoagulants (principal) | CPT/HCPCS: 85610 ==

== ENCOUNTER 2017-05-22 14:30 | Outpatient (CLI) | payer MEDICARE, MEDICAID | END 2017-05-22 14:45 | disposition home or self-care (01) | LOC: RT.N 14:30 | PROVIDERS: ATTEND Family Medicine | DX: I21.4 Non-ST elevation (NSTEMI) myocardial infarction (principal) | CPT/HCPCS: 93005 ==

== ENCOUNTER 2017-05-23 13:54 | Observation (INO) | payer MEDICARE, MEDICAID ==
[2017-05-23 14:30] LABS: BASOPHILS # (AUTO) 0.1 10^3/uL (0.0-0.1); BASOPHILS % (AUTO) 1.1 %; EOSINOPHILS # (AUTO) 0.8 10^3/uL (0.0-0.7); EOSINOPHILS % (AUTO) 9.1 %; HGB - HEMOGLOBIN 12.3 g/dL (14.0-18.0); LYMPHOCYTES # (AUTO) 0.9 10^3/uL (1.5-3.5); LYMPHOCYTES % (AUTO) 10.1 %; MEAN CORPUSCULAR HEMOGLOBIN 30.2 pg (27.0-31.0); MEAN CORPUSCULAR VOLUME 88.9 fL (80.0-94.0); MEAN PLATELET VOLUME 9.9 fL (7.4-11.4); MONOCYTES # (AUTO) 0.9 10^3/uL (0.0-1.0); NEUTROPHILS # (AUTO) 6.1 10^3/uL (1.5-6.6); NEUTROPHILS % (AUTO) 69.7 %; PLT - PLATELET COUNT 174 10^3/uL (130-450); RED BLOOD COUNT 4.08 10^6/uL (4.70-6.10); RED CELL DISTRIBUTION WIDTH 17.3 % (12.0-15.0); WHITE BLOOD COUNT 8.8 x10^3/uL (4.8-10.8)
[2017-05-23 14:37] LABS: INR 1.1 (0.8-1.2); PT - PROTHROMBIN TIME 12.2 secs (9.9-12.6)
--- NOTE | 2017-05-23 14:37 | ED Physician Documentation ---
History of Present Illness - Stated complaint Stated Complaint: LOW BP - Chief complaint Chief Complaint: Neuro - History obtained from History obtained from: Patient, Family - History of Present Illness Timing: Other (He went to the [facility] today for an infusion of the volar map for his metastatic melanoma and was noted to be hypotensive and referred over here. He says he feels fatigued but no other specific complaints. He denies chest pain or trouble breathing. He has not had dark or tarry stools. His stools have been loose but not overtly diarrheal. He recently had a non-STEMI with CHF he was transferred to [place]. He said he was under medical management only and is on new antihypertensives. He is no longer on warfarin now, he took himself off. Review of the chart shows that he was hypotensive on his visit to the oncologist 2 days ago.) Review of Systems Ten Systems: 10 systems reviewed and negative Constitutional: reports: Fatigue. denies: Fever, Chills Nose: denies: Rhinorrhea / runny nose, Congestion Cardiac: denies: Chest pain / pressure, Palpitations Respiratory: denies: Dyspnea, Cough GI: denies: Abdominal Pain, Nausea, Vomiting PD PAST MEDICAL HISTORY - Past Medical History Past Medical History: Yes Cardiovascular: Atrial fibrillation, Other Respiratory: None Endocrine/Autoimmune: None GI: GERD : None, Renal insuffiency HEENT: None Psych: Panic attacks Musculoskeletal: None Derm: Other - Past Surgical History Past Surgical History: Yes General: Hiatal hernia repair HEENT: Other Derm: Skin cancer surgery - Present Medications Home Medications: Ambulatory Orders Medication Instructions Recorded Confirmed Terazosin HCl 10 mg PO DAILY 04/21/13 05/21/17 Docusate Sodium [Stool Softener] 300 mg PO DAILY 03/01/14 05/21/17 Furosemide [Lasix] 20 mg PO DAILY 10/27/16 05/21/17 Senna [Senokot] 8.6 mg PO DAILY PRN 12/04/16 05/21/17 Multivit with Calcium,Iron,Min 1 each PO DAILY 01/22/17 05/21/17 [Multiple Vitamins For Women] Atorvastatin Calcium 1 tab PO DAILY 05/21/17 05/21/17 Clopidogrel [Plavix] 1 tab PO DAILY 05/21/17 05/21/17 Digoxin 1 tab PO DAILY 05/21/17 05/21/17 Lisinopril 1 tab PO DAILY 05/21/17 05/21/17 Metoprolol Succinate 1 tab PO DAILY 05/21/17 05/21/17 Nitroglycerin 1 tab PO PRN PRN 05/21/17 05/21/17 Spironolactone 1 tab PO DAILY 05/21/17 05/21/17 - Allergies Allergies/Adverse Reactions: Allergies Allergy/AdvReac Type Severity Reaction Status Date / Time No Known Drug Allergies Allergy Verified 05/08/17 16:06 - Social History Does the pt smoke?: No Smoking Status: Never smoker Does the pt drink ETOH?: No Does the pt have substance abuse?: No - Immunizations Immunizations are current?: Yes Immunizations: TDAP current <10years - POLST Patient has POLST: No PD ED PE NORMAL - Vitals Vital signs reviewed: Yes - General General: Alert and oriented X 3, No acute distress - HEENT HEENT: PERRL, EOMI, Pharynx benign - Neck Neck: Supple, no meningeal sign, No bony TTP, No JVD - Cardiac Cardiac: No murmur, Other (Irregularly irregular) - Respiratory Respiratory: No respiratory distress, Clear bilaterally - Abdomen Abdomen: Normal bowel sounds, Soft, Non tender - Extremities Extremities: No edema, No calf tenderness / cord - Neuro Neuro: Alert and oriented X 3, Normal speech - Psych Psych: Normal mood, Normal affect Results - Vitals Vitals: Vital Signs - 24 hr 05/23/17 05/23/17 05/23/17 14:01 14:32 14:35 Temperature 36.6 C Heart Rate 68 69 71 Respiratory 18 20 19 Rate Blood Pressure 85/44 L 73/55 L 84/57 L O2 Saturation 100 97 99 05/23/17 05/23/17 05/23/17 14:40 14:45 14:50 Temperature Heart Rate 71 74 63 Respiratory 20 16 17 Rate Blood Pressure 74/54 L 89/61 L 81/58 L O2 Saturation 99 94 94 05/23/17 15:24 Temperature Heart Rate 66 Respiratory 16 Rate Blood Pressure 90/55 L O2 Saturation 96 Oxygen O2 Source Room air - EKG (time done) 1419 Rate: Rate (enter#) (67) Rhythm: Atrial fibrillation Intervals: Wide QRS (IVCD) Ischemia: ST depression (inferior) Compare to prior EKG: Unchanged from prior EKG (from yesterday) - Labs Labs: Laboratory Tests 05/23/17 05/23/17 05/23/17 14:25 14:25 14:25 WBC 8.8 RBC 4.08 L Hgb 12.3 L Hct 36.3 L MCV 88.9 MCH 30.2 MCHC 34.0 RDW 17.3 H Plt Count 174 MPV 9.9 Neut # 6.1 Lymph # 0.9 L [place] # 0.9 Eos # 0.8 H Baso # 0.1 Absolute Nucleated RBC 0.00 Nucleated RBC % 0.0 PT INR Sodium 131 L Potassium 4.8 Chloride 103 Carbon Dioxide 22 Anion Gap 6.0 BUN 54 H Creatinine 1.7 H Estimated GFR (MDRD) 40 L Glucose 107 H Calcium 8.7 Total Bilirubin 0.9 AST 33 ALT 53 Alkaline Phosphatase 89 Troponin I 0.04 Total Protein 6.0 L Albumin 3.3 Globulin 2.7 Albumin/Globulin Ratio 1.2 Lipase 27 Digoxin 05/23/17 05/23/17 14:25 14:25 WBC RBC Hgb Hct MCV MCH MCHC RDW Plt Count MPV Neut # Lymph # [place] # Eos # Baso # Absolute Nucleated RBC Nucleated RBC % PT 12.2 INR 1.1 Sodium Potassium Chloride Carbon Dioxide Anion Gap BUN Creatinine Estimated GFR (MDRD) Glucose Calcium Total Bilirubin AST ALT Alkaline Phosphatase Troponin I Total Protein Albumin Globulin Albumin/Globulin Ratio Lipase Digoxin 0.8 PD MEDICAL DECISION MAKING - ED course ED course: 71-year-old gentleman with recent end STEMI complicated by CHF presents with hypotension that is likely a combination of new medications after the end STEMI and dehydration based on elevated BUN and creatinine. His blood pressure did not become normal after a fluid bolus and given his comorbidities probably deserves gentle hydration and a call to the hospitalist was placed at 3:42 PM. Departure - Departure Disposition: ED Place in Observation Clinical Impression: Dehydration Atrial fibrillation Qualifiers: Atrial fibrillation type: chronic Qualified Code(s): I48.2 - Chronic atrial fibrillation Hypotension Qualifiers: Hypotension type: hypotension due to drug Qualified Code(s): I95.2 - Hypotension due to drugs Condition: Serious
[2017-05-23 14:43] LABS: ALBUMIN 3.3 g/dL (3.2-5.5); ALBUMIN/GLOBULIN RATIO 1.2 (1.0-2.2); BILIRUBIN,TOTAL 0.9 mg/dL (0.2-1.0); CALCIUM 8.7 mg/dL (8.5-10.3); CREATININE 1.7 mg/dL (0.6-1.2)
[2017-05-23 14:46] LABS: DIGOXIN 0.8 ng/mL
[2017-05-23] MEDS ORDERED: SODIUM CHLORIDE 0.9% 1,000 ML IV ONE (14:50)
[2017-05-23] MEDS: SODIUM CHLORIDE 0.9% 1,000 ML IV ONE ×2 (15:49→21:40)
[2017-05-23] MEDS ORDERED: ONDANSETRON 4 MG/2 ML VIAL IVP PRN (17:43)
[2017-05-23] MEDS ORDERED: SODIUM CHLORIDE FLUSH 0.9% 10 ML SYRINGE IVP PRN (17:43)
[2017-05-23] MEDS ORDERED: ACETAMINOPHEN 325 MG TABLET PO PRN (17:43)
[2017-05-23] MEDS ORDERED: NITROGLYCERIN SL 0.4 MG TABLET SL PRN (17:47)
[2017-05-23] MEDS ORDERED: SODIUM CHLORIDE 0.9% 1,000 ML IV SCH (18:00)
--- NOTE | 2017-05-23 18:12 | HISTORY & PHYSICAL EXAMINATION ---
Chief Complaint - Chief Complaint Chief Complaint: hypotensive History of Present Illness - Admitted From Admitted From:: ER - History Obtained From History obtained from: pt and his - History of Present Illness HPI Comment/Other: is 71-year-old male with a past medical history significant for metastatic melanoma involving in the lung, diffuse large B cell lymphoma, follicular lymphoma, recent NSTEM, CHF with 15-20% EF, AFib, chronic renal insufficiency, chronic anemia, who present ER for evaluation and treatment of hypotension. Pt report he went to [facility] for follow up treatment of his metastatic melanoma. Pt was found his systolic blood pressure was round 70. Pt' s oncologist Dr. Schreiber did not initiate his treatment because of significant hypotension. Subsequently pt was referred to ER for further evaluation and treatment of hypotension. Pt report he feel dizziness and very fatigue all the time. Pt denies chest pain, shortness of breath, fever, chill, headache, abdominal pain, GI bleeding. Pt report he recently had NSTEM and was transferred to [facility], and was under medical management by his global account executive. New antihypertensive medications were prescribed to him. In Lab test at ER, pt has elevated Creatinine 1.7 from 1.3 on 05/20/17. Pt is admitted to observation unit for management of hypotension and dehydration. History - Past Medical History Cardiovascular: reports: Atrial fibrillation, Other Respiratory: reports: None Endocrine/Autoimmune: reports: None GI: reports: GERD : reports: None, Renal insuffiency HEENT: reports: None Psych: reports: Panic attacks Musculoskeletal: reports: None Derm: reports: Other MRSA Hx?: No - Past Surgical History General: reports: Hiatal hernia repair HEENT: reports: Other Derm: reports: Skin cancer surgery - Family & Social History Living arrangement: At home Living Situation: With spouse/s.o. Social History Notes: pt with his is living [facility]. - Substance History Use: Uses substance without health or social issues: NONE Abuse: Recurrent use of substance despite neg consequences: NONE Dependence: Experiences withdrawal or developed tolerances: NONE - POLST Patient has POLST: No POLST Status: Full Code Meds/Allgy - Home Medications Home Medications: Ambulatory Orders Medication Instructions Recorded Confirmed Terazosin HCl 10 mg PO DAILY 04/21/13 05/21/17 Docusate Sodium [Stool Softener] 300 mg PO DAILY 03/01/14 05/21/17 Furosemide [Lasix] 20 mg PO DAILY 10/27/16 05/21/17 Senna [Senokot] 8.6 mg PO DAILY PRN 12/04/16 05/21/17 Multivit with Calcium,Iron,Min 1 each PO DAILY 01/22/17 05/21/17 [Multiple Vitamins For Women] Atorvastatin Calcium 1 tab PO DAILY 05/21/17 05/21/17 Clopidogrel [Plavix] 1 tab PO DAILY 05/21/17 05/21/17 Digoxin 1 tab PO DAILY 05/21/17 05/21/17 Lisinopril 1 tab PO DAILY 05/21/17 05/21/17 Metoprolol Succinate 1 tab PO DAILY 05/21/17 05/21/17 Nitroglycerin 1 tab PO PRN PRN 05/21/17 05/21/17 Spironolactone 1 tab PO DAILY 05/21/17 05/21/17 - Allergies Allergies/Adverse Reactions: Allergies Allergy/AdvReac Type Severity Reaction Status Date / Time No Known Drug Allergies Allergy Verified 05/08/17 16:06 Review of Systems - Constitutional Constitutional: reports: Fatigue, Weakness, Poor appetite. denies: Fever, Chills, Malaise, Diaphoresis, Night sweats - Eyes Eyes: denies: Pain, Irritation, Amaurosis, Blurred vision, Spots in vision, Field loss, Vision loss, Dipolpia - Ears, Nose & Throat Ears, Nose & Throat: denies: Ear pain, Hearing loss, Hearing aids, Tinnitus, Vertigo, Nasal pain, Nosebleeds, Nasal congestion, Sore throat, Mouth lesions, Bleeding gums - Cardiovascular Cariovascular: denies: Irregular heart rate, Palpitations, Chest pain, Edema, Lightheadedness, Syncope, Exertional dyspnea, Decr. exercise tolerance - Respiratory Respiratory: denies: Cough, Sputum production, Wheezing, Snoring, Hemoptysis, Orthopnea, SOB at rest, SOB with exertion - Gastrointestinal Gastrointestinal: denies: Abdominal pain, Abdominal distention, Constipation, Diarrhea, Change in bowel habits, Rectal bleeding, Black stools, Bloody stools, Nausea, Vomiting, Bile emesis, Silver blood emesis, Coffee grounds emesis - Genitourinary Genitourinary: denies: Dysuria, Frequency, Urgency, Hematuria, Incontinence, Flank pain, Nocturia, Urethral discharge - Musculoskeletal Musculoskeletal: denies: Muscle pain, Back pain, Muscle aches, Stiffness, Limited range of motion, Muscle weakness, Gout, Joint pain - Integumentary Integumentary: denies: Rash, Dryness - Neurological Neurological: reports: General weakness. denies: Focal weakness, Headache, Dizziness, Numbness, Pre-existing deficit, Abnormal gait, Seizures, Incoordination, Slurred speech - Psychiatric Psychiatric: denies: Depression, Anxiety, Suicidal, Delusions, Hallucinations, Homicidal - Endocrine Endocrine: denies: Polyuria, Polydypsia, Polyphagia - Hematologic/Lymphatic Hematologic/Lymphatic: denies: Anemia, Bruising, Petechiae, Blood clots, Lymphadenopathy, Bleeding tendencies Exam - Vital Signs Reviewed Vital Signs: Yes Vital Signs: Vital Signs x48h Pulse Resp BP Pulse Ox 05/23/17 18:07 71 20 121/85 H 98 - Physical Exam General Appearance: positive: No acute distress, Alert. negative: Lethargic Eyes Bilateral: positive: Normal inspection, PERRL, No lid inflammation, Conjunctivae nml ENT: positive: ENT inspection nml, Pharynx nml, No signs of dehydration. negative: Purulent nasal drainage, Pharyngeal erythema, Oral lesions Neck: positive: Nml inspection, Thyroid nml, No JVD, Trachea midline. negative : Thyromegaly, Lymphadenopathy (R), Lymphadenopathy (L), Stiff neck, Carotid bruit, Swelling/bruising, Tracheal deviation Respiratory: positive: Chest non-tender, No respiratory distress, Breath sounds nml. negative: Wheezes, Rales, Rhonchi Cardiovascular: positive: Regular rate & rhythm, No murmur, No gallop. negative : Irregularly irregular, Extrasystoles, Tachycardia, Bradycardia, Systolic murmur, Diastolic murmur Peripheral Pulses: positive: 2+ Abdomen: positive: Non-tender, No organomegaly, Nml bowel sounds, No distention. negative: Tenderness, Guarding, Rebound Back: positive: Nml inspection. negative: CVA tenderness (R), CVA tenderness (L ) Skin: positive: Color nml, No rash, Warm, Dry. negative: Cyanosis, Diaphoresis , Pallor Extremities: positive: Non-tender, Full ROM, Nml appearance. negative: Calf tenderness, Joint swelling, Jeannie's sign/cords Neurologic/Psychiatric: positive: Oriented x3, Sensation nml, Mood/affect nml, Weakness. negative: Sensory loss, Facial droop, Slurred/abnml speech, Depressed mood/affect Reflexes: Bicep (L): 0 Conclusion/Plan - Problem List (1) Hypotension Conclusion/Plan: hypotension may appear from the combination of new initiated antihypertensive medications and dehydration Gentle hydration under consideration of severe impaired LV EF Hold antihypertensive agents now tele and vital monitor Qualifiers: Hypotension type: hypotension due to drug Qualified Code(s): I95.2 - Hypotension due to drugs (2) Acute on chronic renal insufficiency Conclusion/Plan: Pt has an elevated creatinine 1.7 from recently 1.3, BUN 54 from 40 Hydration gentle daily lab, vital monitor check CK (3) Atrial fibrillation Conclusion/Plan: Pt's HR is well controlled resume Digoxin tele and vital monitor Qualifiers: Atrial fibrillation type: chronic Qualified Code(s): I48.2 - Chronic atrial fibrillation (4) Congestive heart failure Conclusion/Plan: Pt had recent ECHO, which reveal EF 15-20%, under the medical management but without AICD by pt's global account executive. pt report he had an appointment on next week to follow up his global account executive. pt is on tele, vital closely monitor Qualifiers: Congestive heart failure type: unspecified Congestive heart failure chronicity: acute on chronic Qualified Code(s): I50.9 - Heart failure, unspecified (5) Metastatic melanoma to lung Conclusion/Plan: pt is under the care of his oncologist. (6) Hyponatremia Conclusion/Plan: it appear hypovolumia and hyponatremia, under impaired renal and heart function. gentle hydration daily lab test vital, tele monitor (7) DVT prophylaxis Conclusion/Plan: SCD and Heparin (8) Full code status Conclusion/Plan: pt request a limited code status with CPR, but without life support and incubation - Lab Results Fish Bones: 05/23/17 14:25 05/23/17 14:25 Core Measures - Anticipated LOS I expect patient to be DC'd or transferred within 96 hours.: Yes - DVT/VTE - Prophylaxis VTE/DVT Device ordered at admit?: Yes VTE/DVT Prophylaxis med ordered at admit?: Yes - Stroke - Rehab Assessment Rehab services assessment to be ordered?: No - AMI - Statin at Admit Aspirin Prescribed on Admit: No
[2017-05-23] MEDS ORDERED: ATORVASTATIN 40 MG TABLET PO SCH (21:00)
[2017-05-23] MEDS: SODIUM CHLORIDE FLUSH 0.9% 10 ML SYRINGE IVP SCH (23:41)
[2017-05-24 06:12] LABS: BASOPHILS # (AUTO) 0.1 10^3/uL (0.0-0.1); BASOPHILS % (AUTO) 0.7 %; EOSINOPHILS # (AUTO) 0.8 10^3/uL (0.0-0.7); EOSINOPHILS % (AUTO) 10.9 %; HGB - HEMOGLOBIN 11.3 g/dL (14.0-18.0); LYMPHOCYTES # (AUTO) 0.7 10^3/uL (1.5-3.5); LYMPHOCYTES % (AUTO) 9.5 %; MEAN CORPUSCULAR HEMOGLOBIN 29.6 pg (27.0-31.0); MEAN CORPUSCULAR VOLUME 89.8 fL (80.0-94.0); MEAN PLATELET VOLUME 10.4 fL (7.4-11.4); MONOCYTES # (AUTO) 0.7 10^3/uL (0.0-1.0); MONOCYTES % (AUTO) 10.1 %; NEUTROPHILS # (AUTO) 4.8 10^3/uL (1.5-6.6); NEUTROPHILS % (AUTO) 68.8 %; PLT - PLATELET COUNT 143 10^3/uL (130-450); RED BLOOD COUNT 3.82 10^6/uL (4.70-6.10); RED CELL DISTRIBUTION WIDTH 17.5 % (12.0-15.0)
[2017-05-24 06:27] LABS: ALBUMIN/GLOBULIN RATIO 1.3 (1.0-2.2); BILIRUBIN,TOTAL 0.9 mg/dL (0.2-1.0); CALCIUM 8.3 mg/dL (8.5-10.3); CREATININE 1.4 mg/dL (0.6-1.2); MAGNESIUM 1.9 mg/dL (1.7-2.8); TOTAL PROTEIN 5.4 g/dL (6.7-8.2)
[2017-05-24] MEDS: SODIUM CHLORIDE FLUSH 0.9% 10 ML SYRINGE IVP SCH ×2 (06:34→14:21)
[2017-05-24] MEDS ORDERED: SODIUM CHLORIDE 0.9% 1,000 ML IV SCH (07:42)
[2017-05-24] MEDS ORDERED: POLYETHYLENE GLYCOL 3350 17 GM PACKET PO SCH (09:00)
[2017-05-24] MEDS ORDERED: DIGOXIN 125 MCG TABLET PO SCH (09:00)
[2017-05-24] MEDS ORDERED: HEPARIN 5,000 UNIT/ML VIAL SUBQ SCH (09:00)
[2017-05-24] MEDS ORDERED: FAMOTIDINE 20 MG TABLET PO SCH (09:00)
[2017-05-24] MEDS ORDERED: CLOPIDOGREL 75 MG TABLET PO SCH (09:00)
[2017-05-24] MEDS ORDERED: ENOXAPARIN 40 MG/0.4 ML SYRINGE SUBQ SCH (09:00)
--- NOTE | 2017-05-24 12:46 | Discharge Plan ---
Discharge Plan Disposition: Home, Self Care Condition: Stable Diet: Cardiac Activity Restrictions: Activity as Tolerated Shower Restrictions: No Weight Bearing: Full Weight Instruction Topics: Heart Failure Meds Control, Hypotension Dc, ED Hypotension All Causes, Dehydration Additional Instructions or Follow Up instructions: Discuss with you for your discharge plan, you report your can check your blood pressure for you. You want to be discharged to home today. You May follow up PCP on next Saturday05/27/2017, follow up the [employer]'s earliest appointment on next week. Your blood pressure medications are hold now. Your blood pressure was around 74/54, pause is 71, at admission. Now your blood pressure is 113/74, pause is 66. Should symptoms return or worsen, please call 911 or present ER for help. Your are welcomed to our service. Follow-Up Care: [facility], [facility], Home Health - RN No Smoking: If you smoke, Please STOP! Call for help. Follow-up with: Reji Bronson MD [Primary Care Provider] -
--- NOTE | 2017-05-24 15:30 | DISCHARGE SUMMARY ---
Discharge Summary Discharge Date: 05/24/17 Discharging Provider: ASENCIO Primary Care Provider: Marcus Enriquez Condition at Discharge: Stable Discharge Disposition: 01 Home, Self Care Discharge Facility Name: home - DIAGNOSES Admission Diagnoses: (1) Hypotension (2) Acute on chronic renal insufficiency (3) Atrial fibrillation (4) Congestive heart failure (5) Metastatic melanoma to lung (6) Hyponatremia Discharge Diagnoses with Status of Each Condition: (1) Hypotension resolved. BP is 113/74 at discharge (2) Acute on chronic renal insufficiency improved to his baseline (3) Atrial fibrillation HR is 66, well controlled (4) Congestive heart failure stable, follow up ecommerce manager for management (5) Metastatic melanoma to lung stable, follow up oncologist for management (6) Hyponatremia improved. - HPI History of Present Illness: is 71-year-old male with a past medical history significant for metastatic melanoma involving in the lung, diffuse large B cell lymphoma, follicular lymphoma, recent NSTEM, CHF with 15-20% EF, AFib, chronic renal insufficiency, chronic anemia, who present ER for evaluation and treatment of hypotension. Pt report he went to [facility] for follow up treatment of his metastatic melanoma. Pt was found his systolic blood pressure was round 70. Pt' s oncologist Dr. Schreiber did not initiate his treatment because of significant hypotension. Subsequently pt was referred to ER for further evaluation and treatment of hypotension. Pt report he feel dizziness and very fatigue all the time. Pt denies chest pain, shortness of breath, fever, chill, headache, abdominal pain, GI bleeding. Pt report he recently had NSTEM and was transferred to [facility], and was under medical management by his ecommerce manager. New antihypertensive medications were prescribed to him. In Lab test at ER, pt has elevated Creatinine 1.7 from 1.3 on 05/20/17. Pt is admitted to observation unit for management of hypotension and dehydration. - HOSPITAL COURSE Hospital Course: pt was admitted for hypotension. Pt's BP at admission was around 75/55, pt was dizziness and very fatigue. Pt took new prescribed BP medications. Pt's all BP medications were hold, and Pt had slight hydration in hospital. Then pt's BP return to normal at 113/74 and pause at 66. Pt state he feel much better, and he request to be d/c today. Home health RN is arranged to visit pt at home on the earliest tomorrow to continue manage pt's medical needs. - ALLERGIES Allergies/Adverse Reactions: Allergies Allergy/AdvReac Type Severity Reaction Status Date / Time No Known Drug Allergies Allergy Verified 05/08/17 16:06 - MEDICATIONS Home Medications: Ambulatory Orders Medication Instructions Recorded Confirmed Terazosin HCl 10 mg PO DAILY 04/21/13 05/24/17 Senna [Senokot] 8.6 mg PO BID PRN 12/04/16 05/24/17 Digoxin 125 mcg PO DAILY 05/21/17 05/24/17 Nitroglycerin 0.4 mg PO Q5M PRN 05/21/17 05/24/17 Aspirin Chewable [[place] Jose 81 mg PO DAILY 05/24/17 05/24/17 Aspirin] Multivitamin [Multiple Vitamins] 1 each PO DAILY 05/24/17 05/24/17 - PHYSICAL EXAM AT DISCHARGE General Appearance: positive: No acute distress, Alert. negative: Lethargic Eyes Bilateral: positive: Normal inspection, PERRL, No lid inflammation, Conjunctivae nml ENT: positive: ENT inspection nml, Pharynx nml, No signs of dehydration. negative: Purulent nasal drainage, Pharyngeal erythema, Oral lesions Neck: positive: Nml inspection, Thyroid nml, No JVD, Trachea midline. negative : Thyromegaly, Lymphadenopathy (R), Lymphadenopathy (L), Stiff neck, Carotid bruit, Swelling/bruising, Tracheal deviation Respiratory: positive: Chest non-tender, No respiratory distress, Breath sounds nml. negative: Wheezes, Rales, Rhonchi Cardiovascular: positive: Regular rate & rhythm, No murmur, No gallop. negative : Irregularly irregular, Extrasystoles, Tachycardia, Bradycardia, Systolic murmur, Diastolic murmur Peripheral Pulses: positive: 2+ Abdomen: positive: Non-tender, No organomegaly, Nml bowel sounds, No distention. negative: Tenderness, Guarding, Rebound Back: positive: Nml inspection. negative: CVA tenderness (R), CVA tenderness (L ) Skin: positive: Color nml, No rash, Warm, Dry. negative: Cyanosis, Diaphoresis , Pallor, Skin rash Extremities: positive: Non-tender, Full ROM, Nml appearance. negative: Calf tenderness, Joint swelling, Jeannie's sign/cords Neurologic/Psychiatric: positive: Oriented x3, Motor nml, Sensation nml, Mood/ affect nml. negative: Sensory loss, Facial droop, Slurred/abnml speech, Depressed mood/affect - LABS Result Diagrams: 05/24/17 05:36 05/24/17 05:36 - FOLLOW UP Follow Up: Discuss with pt for his discharge plan, pt report his can check your blood pressure for him. pt request to be discharged to home today. Pt May follow up PCP on next Saturday05/27/2017, follow up the Hotel Or Motel Manager's earliest appointment on next week. Pt's blood pressure medications are hold now. Your blood pressure was around 74/54, pause is 71, at admission. Now your blood pressure is 113/74, pause is 66. Should symptoms return or worsen, please call 911 or present ER for help. pt are welcomed to our service. Home health RN is arranged to visit pt at home for continuing medical management. - TIME SPENT Time Spent in Discharge (Minutes): 55
[2017-05-24 16:03] VITALS: BP 111/62
== END 2017-05-24 16:20 | disposition home health service (06) ==
LOC: ED 13:54 → MS2 17:43 → OBS 18:31
PROVIDERS: ADMIT Nurse Practitioner Gerontology; ATTEND Nurse Practitioner Gerontology
DX: I95.9 Hypotension, unspecified (principal); E86.0 Dehydration; N18.9 Chronic kidney disease, unspecified; I48.2 Chronic atrial fibrillation; I25.2 Old myocardial infarction; I50.9 Heart failure, unspecified; E87.1 Hypo-osmolality and hyponatremia; D64.9 Anemia, unspecified; Z79.02 Long term (current) use of antithrombotics/antiplatelets; Z85.72 Personal history of non-Hodgkin lymphomas; Z51.12 Encounter for antineoplastic immunotherapy; C77.0 Secondary and unspecified malignant neoplasm of lymph nodes of head, face and neck; C78.01 Secondary malignant neoplasm of right lung; C78.02 Secondary malignant neoplasm of left lung; C43.21 Malignant melanoma of right ear and external auricular canal; Z79.01 Long term (current) use of anticoagulants; Z45.2 Encounter for adjustment and management of vascular access device; Z79.899 Other long term (current) drug therapy
CPT/HCPCS: 36415; 80053; 80162; 82550; 83690; 83735; 84484; 85025; 85610; 93005; 96360; 96361; 99284; A9270; G0378

== ENCOUNTER 2017-06-04 08:26 | Outpatient (CLI) | payer MEDICARE, MEDICAID ==
[2017-06-04 13:07] LABS: ALBUMIN 3.1 g/dL (3.2-5.5); ALBUMIN/GLOBULIN RATIO 1.1 (1.0-2.2); ALKALINE PHOSPHATASE 63 IU/L (42-121); ALT ALANINE AMINOTRANSFERASE 23 IU/L (10-60); AST ASPARTATE AMINOTRANSFERASE 25 IU/L (10-42); BILIRUBIN,TOTAL 1.3 mg/dL (0.2-1.0); BUN - BLOOD UREA NITROGEN 23 mg/dL (6-20); CALCIUM 8.5 mg/dL (8.5-10.3); CARBON DIOXIDE - CO2 21 mmol/L (21-32); CHLORIDE 101 mmol/L (101-111); CREATININE 1.5 mg/dL (0.6-1.2); DIGOXIN 0.6 ng/mL; GFR - MDRD 46 (>89); GLUCOSE 92 mg/dL (70-100); MAGNESIUM 1.7 mg/dL (1.7-2.8); SODIUM 131 mmol/L (135-145)
== END 2017-06-04 08:27 | disposition home or self-care (01) ==
LOC: LAB.N 08:26
PROVIDERS: ATTEND Specialist
DX: I48.2 Chronic atrial fibrillation (principal); I42.9 Cardiomyopathy, unspecified; I50.22 Chronic systolic (congestive) heart failure
CPT/HCPCS: 36415; 80053; 80061; 80162; 83721; 83735

== ENCOUNTER 2017-06-04 11:16 | Emergency (ER) | payer MEDICARE, MEDICAID ==
--- NOTE | 2017-06-04 13:21 | ED Physician Documentation ---
PD HPI URI - Stated complaint Stated Complaint: WEAKNESS/FEVER - Chief complaint Chief Complaint: Fever - History obtained from History obtained from: Patient - History of Present Illness Timing - onset: How many days ago (few days with less appetite, weakness, some cough and the found to have close to a feve of 38.0 when he gave blood for testing today at the [facility]. PRovider did not see him, just nurse.) Timing duration: Days Timing details: Gradual onset, Waxing and waning Associated symptoms: Fever, Chills, Nasal congestion, Dry cough. No: NVD (but no appetite.) Contributing factors: No: Sick contact, Travel, Other (getting chemo tomorrow in [facility].) Review of Systems Constitutional: reports: Fever Nose: reports: Rhinorrhea / runny nose Throat: reports: Oral lesions / sores, Sore throat Cardiac: reports: Chest pain / pressure Respiratory: reports: Cough. denies: Dyspnea, Wheezing GI: reports: Nausea. denies: Abdominal Pain, Vomiting, Diarrhea : denies: Dysuria, Frequency PD PAST MEDICAL HISTORY - Past Medical History Cardiovascular: Atrial fibrillation, Other Respiratory: None Endocrine/Autoimmune: None GI: GERD : None, Renal insuffiency HEENT: None Psych: Panic attacks Musculoskeletal: None Derm: Other - Past Surgical History Past Surgical History: Yes General: Hiatal hernia repair HEENT: Other Derm: Skin cancer surgery - Present Medications Home Medications: Ambulatory Orders Medication Instructions Recorded Confirmed Terazosin HCl 10 mg PO DAILY 04/21/13 05/24/17 Senna [Senokot] 8.6 mg PO BID PRN 12/04/16 05/24/17 Digoxin 125 mcg PO DAILY 05/21/17 05/24/17 Nitroglycerin 0.4 mg PO Q5M PRN 05/21/17 05/24/17 Aspirin Chewable [St Jose 81 mg PO DAILY 05/24/17 05/24/17 Aspirin] Multivitamin [Multiple Vitamins] 1 each PO DAILY 05/24/17 05/24/17 - Allergies Allergies/Adverse Reactions: Allergies Allergy/AdvReac Type Severity Reaction Status Date / Time No Known Drug Allergies Allergy Verified 05/08/17 16:06 - Social History Does the pt smoke?: No Smoking Status: Never smoker Does the pt drink ETOH?: No Does the pt have substance abuse?: No - Immunizations Immunizations are current?: Yes Immunizations: TDAP current <10years - POLST Patient has POLST: No POLST Status: Full Code PD ED PE NORMAL - Vitals Vital signs reviewed: Yes - General General: Alert and oriented X 3, No acute distress, Well developed/nourished - HEENT HEENT: Ears normal, Moist mucous membranes, Pharynx benign - Neck Neck: Supple, no meningeal sign, No adenopathy, Other - Cardiac Cardiac: No murmur. No: RRR (krregular and feels normal rate.) - Respiratory Respiratory: Clear bilaterally - Back Back: No CVA TTP - Derm Derm: Normal color, Warm and dry - Extremities Extremities: No tenderness to palpate, Normal ROM s pain, No edema, No calf tenderness / cord - Neuro Neuro: Alert and oriented X 3, No motor deficit, Normal speech Eye Opening: Spontaneous Motor: Obeys Commands Verbal: Oriented GCS Score: 15 - Psych Psych: Normal mood Results - Vitals Vitals: Oxygen O2 Source Room air - Labs Labs: Laboratory Tests 06/04/17 06/04/17 14:08 15:35 Urine Color YELLOW Urine Clarity CLEAR Urine pH 5.5 Ur Specific [place] 1.020 Urine Protein NEGATIVE Urine Glucose (UA) NEGATIVE Urine Ketones NEGATIVE Urine Occult Blood NEGATIVE Urine Nitrite NEGATIVE Urine Bilirubin NEGATIVE Urine Urobilinogen 0.2 (NORMAL) Ur Leukocyte Esterase NEGATIVE Ur Microscopic Review NOT INDICATED Urine Culture Comments NOT INDICATED Influenza A (Rapid) Negative Influenza B (Rapid) Negative Influenza Types A,B Ag - PD MEDICAL DECISION MAKING - ED course Complexity details: considered differential (got iV fluids. WBC is adequate. No signs of sepsis. ), d/w patient Departure - Departure Disposition: 01 Home, Self Care Clinical Impression: General weakness, Low grade fever Upper respiratory infection Qualifiers: URI type: unspecified URI Qualified Code(s): J06.9 - Acute upper respiratory infection, unspecified Condition: Stable Record reviewed to determine appropriate education?: Yes Instructions: ED Upper Resp Infec No Abx Tx Follow-Up: Reji Bronson MD [Primary Care Provider] - Comments: No signs of obvious bacterial infection at this time. Presume it is a viral head cold/illness like the rest of the family. Tylenol or ibuprofen if needed for fevers or pains. Drink lots of fluids. There is no obvious infection needing hospitalization. Follow-up at the [facility] clinic tomorrow for your scheduled chemotherapy and they can assess at that time if there is still going to do it. Presume they will. Discharge Date/Time: 06/04/17 17:00
[2017-06-04] MEDS ORDERED: SODIUM CHLORIDE 0.9% 1,000 ML IV ONE ×2 (13:43→15:49)
[2017-06-04] MEDS ORDERED: ACETAMINOPHEN 325 MG TABLET PO STA (13:44)
--- NOTE | 2017-06-04 14:25 | XRAY Report ---
EXAM: CHEST RADIOGRAPHY EXAM DATE: 06/04/2017 01:56 PM. CLINICAL HISTORY: Cough and low fever. Melanoma. COMPARISON: CT 05/14/2017. Radiograph 05/08/2017. TECHNIQUE: 2 views. FINDINGS: Lungs/Pleura: Bilateral lung nodules more conspicuous on the right than the left appear unchanged. Th ere is slight blunting of the left lateral costophrenic sulcus, unchanged. There is no pleural effusi on or pneumothorax. There are no confluent airspace opacities. There is no interstitial abnormality. Mediastinum: Heart size upper normal and unchanged. No martín lymphadenopathy. Left subclavian Port-A- Cath is present, as before. Other: None. IMPRESSION: 1. Bilateral lung metastases, as before. 2. No new airspace opacities. [facility] Referring Provider Line: [phone] SITE ID: [id number]
--- NOTE | 2017-06-04 14:25 | XRAY Preliminary Report ---
Exam: XR CHEST 2 VIEW X-RAY IMPRESSION: 1. Bilateral lung metastases, as before. 2. No new airspace opacities. [facility] SITE ID: [id number]
[2017-06-04 15:31] VITALS: BP 107/56
[2017-06-04 15:45] LABS: BILIRUBIN,URINE NEGATIVE (NEGATIVE); GLUCOSE, URINE (UA) NEGATIVE (NEGATIVE); KETONES,URINE (UA) NEGATIVE (NEGATIVE); LEUKOCYTE ESTERASE, URINE NEGATIVE (NEGATIVE); NITRITE,URINE NEGATIVE (NEGATIVE); OCCULT BLOOD,URINE NEGATIVE (NEGATIVE); PH,URINE 5.5 PH (5.0-7.5); PROTEIN,URINE NEGATIVE (NEGATIVE); UROBILINOGEN,URINE 0.2 (NORMAL) E.U./dL (NORMAL)
[2017-06-04 15:56] LABS: CLARITY,URINE CLEAR (CLEAR)
== END 2017-06-04 17:00 | disposition home or self-care (01) ==
LOC: ED 11:16
DX: J06.9 Acute upper respiratory infection, unspecified (principal); R50.9 Fever, unspecified; R53.1 Weakness; I48.2 Chronic atrial fibrillation; I42.9 Cardiomyopathy, unspecified; I50.22 Chronic systolic (congestive) heart failure; N28.9 Disorder of kidney and ureter, unspecified; K21.9 Gastro-esophageal reflux disease without esophagitis; Z79.82 Long term (current) use of aspirin
CPT/HCPCS: 36415; 71046; 80053; 80162; 81003; 83735; 87275; 87276; 96360; 96361; 99283; A9270; 80061; 81001; 83721; 87086

== ENCOUNTER 2017-06-07 09:30 | Outpatient (CLI) | payer MEDICARE, MEDICAID | END 2017-06-07 09:45 | disposition home or self-care (01) | LOC: RT.N 09:30 | PROVIDERS: ATTEND Family Medicine | DX: I95.9 Hypotension, unspecified (principal) | CPT/HCPCS: 93005 ==

== ENCOUNTER 2017-06-14 11:57 | Inpatient (IN) | payer MEDICARE, MEDICAID ==
[2017-06-14] MEDS ORDERED: SODIUM CHLORIDE 0.9% 1,000 ML IV ONE (12:38)
[2017-06-14 13:25] LABS: BASOPHILS # (AUTO) 0.1 10^3/uL (0.0-0.1); BASOPHILS % (AUTO) 1.2 %; EOSINOPHILS % (AUTO) 10.7 %; HGB - HEMOGLOBIN 11.5 g/dL (14.0-18.0); LYMPHOCYTES # (AUTO) 0.8 10^3/uL (1.5-3.5); LYMPHOCYTES % (AUTO) 8.3 %; MEAN CORPUSCULAR HEMOGLOBIN 30.6 pg (27.0-31.0); MEAN CORPUSCULAR HGB CONC 34.6 g/dL (32.0-36.0); MEAN CORPUSCULAR VOLUME 88.4 fL (80.0-94.0); MEAN PLATELET VOLUME 8.6 fL (7.4-11.4); MONOCYTES # (AUTO) 0.5 10^3/uL (0.0-1.0); MONOCYTES % (AUTO) 5.4 %; NEUTROPHILS # (AUTO) 6.7 10^3/uL (1.5-6.6); NEUTROPHILS % (AUTO) 74.4 %; PLT - PLATELET COUNT 270 10^3/uL (130-450); RED BLOOD COUNT 3.76 10^6/uL (4.70-6.10); RED CELL DISTRIBUTION WIDTH 19.8 % (12.0-15.0); WHITE BLOOD COUNT 9.1 x10^3/uL (4.8-10.8)
--- NOTE | 2017-06-14 13:29 | XRAY Preliminary Report ---
Exam: XR CHEST 1 VIEW X-RAY IMPRESSION: 1. Multiple bilateral lung nodules. Some of the nodules in left lower lung appear larger [facility] SITE ID: [id number]
--- NOTE | 2017-06-14 13:30 | XRAY Report ---
EXAM: CHEST RADIOGRAPHY EXAM DATE: 06/14/2017 01:02 PM. CLINICAL HISTORY: Hypotension. Melanoma COMPARISON: 06/04/2017. TECHNIQUE: 1 view. FINDINGS: Lungs/Pleura: Multiple bilateral lung nodules. Possible enlargement of some of the nodules in the lef t lower lung.. Retrocardiac infiltrate or atelectasis. Small left effusion. Mediastinum: Stable cardiomegaly Other: Left sided Port-A-Cath tip in the lower SVC IMPRESSION: 1. Multiple bilateral lung nodules. Some of the nodules in left lower lung appear larger [facility] Referring Provider Line: [phone] SITE ID: [id number]
--- NOTE | 2017-06-14 13:35 | ED Physician Documentation ---
History of Present Illness - Stated complaint Stated Complaint: WEAKNESS - Chief complaint Chief Complaint: Neuro - Additonal information Additional information: hx from pt and and EMR 71 male has stage 4 multiple myeloma being treated with q2w nivolumab also hx lymphoma and a fib and anemia and had a MT in the last few months txed at [facility] presently on dig and asa - no coumadin or plavix anymore sent from clinic today for low BP and low HR per he is very fatigued has had diarrhea since starting this chemo agent several weeks to months ago no NV no cough pt denies ROWE CP AP poor appetitie and minimal urine output per per no POLST and none scanned into EMR Review of Systems Constitutional: reports: Fatigue. denies: Fever, Chills Throat: denies: Sore throat Cardiac: denies: Chest pain / pressure Respiratory: denies: Cough GI: reports: Diarrhea. denies: Abdominal Pain, Vomiting, Bloody / black stool : reports: Other (decreased urine output) Musculoskeletal: denies: Neck pain, Back pain, Extremity pain Neurologic: reports: Generalized weakness Endocrine: denies: Easy bruising / bleeding Immunocompromised: reports: Immunocompromised PD PAST MEDICAL HISTORY - Past Medical History Cardiovascular: Atrial fibrillation, Other Respiratory: None Endocrine/Autoimmune: None GI: GERD : None, Renal insuffiency HEENT: None Psych: Panic attacks Musculoskeletal: None Derm: Other - Past Surgical History Past Surgical History: Yes General: Hiatal hernia repair HEENT: Other Derm: Skin cancer surgery - Present Medications Home Medications: Ambulatory Orders Medication Instructions Recorded Confirmed Terazosin HCl 10 mg PO DAILY 04/21/13 05/24/17 Senna [Senokot] 8.6 mg PO BID PRN 12/04/16 05/24/17 Digoxin 125 mcg PO DAILY 05/21/17 05/24/17 Nitroglycerin 0.4 mg PO Q5M PRN 05/21/17 05/24/17 Aspirin Chewable [St Jose 81 mg PO DAILY 05/24/17 05/24/17 Aspirin] Multivitamin [Multiple Vitamins] 1 each PO DAILY 05/24/17 05/24/17 - Allergies Allergies/Adverse Reactions: Allergies Allergy/AdvReac Type Severity Reaction Status Date / Time No Known Drug Allergies Allergy Verified 05/08/17 16:06 - Social History Does the pt smoke?: No Smoking Status: Never smoker Does the pt drink ETOH?: No Does the pt have substance abuse?: No - Immunizations Immunizations are current?: Yes Immunizations: TDAP current <10years - POLST Patient has POLST: No POLST Status: Full Code PD ED PE NORMAL - Vitals Vital signs reviewed: Yes (hypotensive and rosalee) - HEENT HEENT: PERRL, Other (pale conj) - Cardiac Cardiac: RRR - Respiratory Respiratory: No respiratory distress, Clear bilaterally, Other (very dec chip, too weak to sit up to listen posteriorly) - Abdomen Abdomen: Soft, Non tender - Derm Derm: Other (pale, warm to touch) - Extremities Extremities: Other (chip mild edema) - Neuro Neuro: Alert and oriented X 3, No motor deficit Results - Vitals Vitals: Vital Signs - 24 hr 06/14/17 06/14/17 12:11 13:52 Temperature 36.5 C Heart Rate 55 L 84 Respiratory 20 28 H Rate Blood Pressure 97/55 L 141/74 H O2 Saturation 100 100 Oxygen O2 Source Room air - EKG (time done) 1249 Rate: Rate (enter#) (83) Rhythm: Atrial fibrillation (not new) Intervals: RBBB (now new) Ischemia: Other (ST depr V1-V3 suggest posterior ischemia but is not new compared to prior EKGs) - Labs Labs: Laboratory Tests 06/14/17 06/14/17 06/14/17 13:14 13:14 13:14 WBC 9.1 RBC 3.76 L Hgb 11.5 L Hct 33.2 L MCV 88.4 MCH 30.6 MCHC 34.6 RDW 19.8 H Plt Count 270 MPV 8.6 Neut # 6.7 H Lymph # 0.8 L [place] # 0.5 Eos # 1.0 H Baso # 0.1 Absolute Nucleated RBC 0.00 Nucleated RBC % 0.0 Sodium 127 L Potassium 3.8 Chloride 98 L Carbon Dioxide 19 L Anion Gap 10.0 BUN 11 Creatinine 1.2 Estimated GFR (MDRD) 59 L Glucose 106 H Lactic Acid Calcium 9.0 Total Bilirubin 0.8 AST 30 ALT 21 Alkaline Phosphatase 60 Troponin I 0.04 Total Protein 5.1 L Albumin 2.8 L Globulin 2.3 Albumin/Globulin Ratio 1.2 Lipase 11 L Urine Color Urine Clarity Urine pH Ur Specific [place] Urine Protein Urine Glucose (UA) Urine Ketones Urine Occult Blood Urine Nitrite Urine Bilirubin Urine Urobilinogen Ur Leukocyte Esterase Ur Microscopic Review Urine Culture Comments Last Dose Date Last Dose Time Digoxin 06/14/17 06/14/17 06/14/17 13:14 13:14 15:12 WBC RBC Hgb Hct MCV MCH MCHC RDW Plt Count MPV Neut # Lymph # [place] # Eos # Baso # Absolute Nucleated RBC Nucleated RBC % Sodium Potassium Chloride Carbon Dioxide Anion Gap BUN Creatinine Estimated GFR (MDRD) Glucose Lactic Acid 1.1 Calcium Total Bilirubin AST ALT Alkaline Phosphatase Troponin I Total Protein Albumin Globulin Albumin/Globulin Ratio Lipase Urine Color YELLOW Urine Clarity CLEAR Urine pH 6.0 Ur Specific [place] 1.025 Urine Protein NEGATIVE Urine Glucose (UA) NEGATIVE Urine Ketones NEGATIVE Urine Occult Blood NEGATIVE Urine Nitrite NEGATIVE Urine Bilirubin NEGATIVE Urine Urobilinogen 0.2 (NORMAL) Ur Leukocyte Esterase NEGATIVE Ur Microscopic Review NOT INDICATED Urine Culture Comments NOT INDICATED Last Dose Date UNKNOWN Last Dose Time UNKNOWN Digoxin 0.3 - Rads (name of study) CXR Radiology: See rad report (multiple chip lung nodules) PD MEDICAL DECISION MAKING - ED course ED course: nodules not new anemia not hyponatremia not new though slightly worse renal insuff mild and not new dig low but no RVR no UTI or pna BP better after 1 L NS but pt still symptomatically orthostatic and cannot even stand unassisted lives at home, has stairs, no home health, or caregivers etc so will admit for acutely worsened weakness of unclear etiology rec social work consult for home safety Departure - Departure Disposition: 66 [facility] DC/Xfer Clinical Impression: Weakness, Hyponatremia, Metastatic melanoma, Dehydration Hypotension Qualifiers: Hypotension type: unspecified hypotension type Qualified Code(s): I95.9 - Hypotension, unspecified Anemia Qualifiers: Anemia type: unspecified type Qualified Code(s): D64.9 - Anemia, unspecified Condition: Fair
[2017-06-14 13:36] LABS: ALBUMIN 2.8 g/dL (3.2-5.5); ALBUMIN/GLOBULIN RATIO 1.2 (1.0-2.2); BILIRUBIN,TOTAL 0.8 mg/dL (0.2-1.0); CREATININE 1.2 mg/dL (0.6-1.2); TOTAL PROTEIN 5.1 g/dL (6.7-8.2)
[2017-06-14 13:41] LABS: DIGOXIN 0.3 ng/mL
[2017-06-14 15:27] LABS: BILIRUBIN,URINE NEGATIVE (NEGATIVE); GLUCOSE, URINE (UA) NEGATIVE (NEGATIVE); KETONES,URINE (UA) NEGATIVE (NEGATIVE); LEUKOCYTE ESTERASE, URINE NEGATIVE (NEGATIVE); NITRITE,URINE NEGATIVE (NEGATIVE); OCCULT BLOOD,URINE NEGATIVE (NEGATIVE); PROTEIN,URINE NEGATIVE (NEGATIVE); UROBILINOGEN,URINE 0.2 (NORMAL) E.U./dL (NORMAL)
[2017-06-14 15:29] LABS: CLARITY,URINE CLEAR (CLEAR)
[2017-06-14] MEDS ORDERED: ACETAMINOPHEN 325 MG TABLET PO PRN (18:22)
[2017-06-14] MEDS ORDERED: TEMAZEPAM 15 MG CAPSULE PO PRN (18:22)
[2017-06-14] MEDS ORDERED: ONDANSETRON 4 MG/2 ML VIAL IVP PRN (18:22)
[2017-06-14] MEDS: DEXTROSE 5%-0.9% NACL 1,000 ML IV SCH (21:43)
[2017-06-14] MEDS: SODIUM CHLORIDE FLUSH 0.9% 10 ML SYRINGE IVP SCH (21:44)
[2017-06-15] MEDS: DEXTROSE 5%-0.9% NACL 1,000 ML IV SCH ×2 (10:00→14:44)
[2017-06-15] MEDS: SODIUM CHLORIDE 1 GM TABLET PO SCH ×2 (10:16→10:18)
[2017-06-15] MEDS: MULTIVITAMIN TABLET PO SCH (10:16)
[2017-06-15] MEDS: FAMOTIDINE 20 MG TABLET PO SCH (10:16)
[2017-06-15] MEDS: ASPIRIN CHEW 81 MG TABLET PO SCH (10:17)
[2017-06-15] MEDS: SODIUM CHLORIDE FLUSH 0.9% 10 ML SYRINGE IVP SCH ×2 (10:17→18:17)
[2017-06-15] MEDS: POLYETHYLENE GLYCOL 3350 17 GM PACKET PO SCH (10:17)
--- NOTE | 2017-06-15 15:21 | XRAY Report ---
EXAM: CHEST RADIOGRAPHY EXAM DATE: 06/15/2017 02:14 PM. CLINICAL HISTORY: Cough and shortness of breath. COMPARISON: Chest radiographs 06/14/2017, 06/04/2017, 05/08/2017, 10/16/2016. CT chest 05/14/2017. TECHNIQUE: 1 view. FINDINGS: Lungs/Pleura: Similar size and distribution of multiple bilateral pulmonary nodules. New mild hazy bi basilar airspace opacities. Persistent trace bilateral pleural effusions. Mediastinum: Stable enlargement of the cardiac silhouette. The aorta is mild tortuous, as before. Other: A left-sided portacatheter terminates in the central brachiocephalic vein or upper SVC, as bef ore. IMPRESSION: 1. Stable enlargement of the cardiac silhouette. 2. Multiple bilateral pulmonary nodules, compatible with known metastases. 3. New mild hazy bibasilar airspace opacities, which could represent atelectasis or layering effusion alex VICKERS Referring Provider Line: [phone] SITE ID: [id number]
--- NOTE | 2017-06-15 19:18 | PROVIDER PROGRESS NOTE ---
Assessment/Plan - Problem List (1) Dehydration Assessment/Plan: Improved BP and clinically no longer dehydrated. Will decrease iv rate. (2) General weakness Assessment/Plan: Still very weak, unable to feed himself. I discussed plan with . (3) Hyponatremia Assessment/Plan: Improved with saline hydration. Continue to follow labs. (4) Altered mental status Assessment/Plan: In light of new R neck/mandibular mass, will get CT of neck to evaluate for tumor, abscess or cellu;itis, as well as CT of head, which was not done in ER at admission. (5) Metastatic melanoma Assessment/Plan: No mass in neck and mew AMS are concerning for tumor spread. Imaging work-up ordered. (6) Localized swelling, mass or lump of neck Assessment/Plan: As above. - Current Meds Current Meds: Current Medications Generic Name Dose Route Start Last Admin Trade Name Freq PRN Reason Stop Dose Admin Aspirin 81 mg 06/15/17 09:00 06/15/17 10:17 [place] Aspirin PO Not Given DAILY MIGNON Famotidine 20 mg 06/15/17 09:00 06/15/17 10:16 Pepcid PO Not Given DAILY MIGNON Dextrose/Sodium Chloride 1,000 mls @ 40 mls/hr 06/15/17 13:33 06/15/17 14:44 D5ns IV 40 mls/hr .Q25H MIGNON Administration Multivitamins 1 tab 06/15/17 09:00 06/15/17 10:16 Theragran PO Not Given DAILY MIGNON Polyethylene Glycol 17 gm 06/15/17 09:00 06/15/17 10:17 Miralax PO Not Given DAILY MIGNON Sodium Chloride 10 ml 06/15/17 01:00 06/15/17 18:17 Normal Saline Flush 0.9% IVP Not Given 0100,0900,1700 MIGNON Sodium Chloride 1 gm 06/15/17 03:00 06/15/17 10:18 Salt Tab PO 1 gm DAILY MIGNON Administration - Lab Result Fish Bone Diagrams: 06/16/17 05:28 06/16/17 05:28 - Additional Planning My Orders: My Active Orders 06/14/17 19:54 Nutrition Consult [CONS] Routine 06/15/17 Consult [Palliative Care Consult] [CONS] Routine Brain W/O [MRI] Routine Neck Soft Tissue W/O [CT] Routine 06/15/17 09:00 Aspirin Chewable [[facility] [place] Aspirin] 81 mg PO DAILY Multivitamin [Theragran] 1 tab PO DAILY 06/15/17 13:33 Dextrose 5%-0.9% NaCl [D5ns] 1,000 ml IV 40 mls/hr 06/15/17 Lunch DIET [Dysphagia Puree Diet] [DIET] 06/16/17 05:00 BMP - BASIC METABOLIC PANEL [CHEM] DAILYLAB BNP - B-NATRIURETIC PEPTIDE [IAI] Routine CBC - COMP BLD CT W/AUTO DIFF [HEME] DAILYLAB MAGNESIUM [CHEM] DAILYLAB 06/17/17 05:00 VITAMIN D,D2,D3 PANEL [REFLAB] Routine Subjective - Subjective Patient Reports: Resting Comfortably Nursing Reports: Other (Pt is in and out of lucidity and alertness.) Objective Vital Signs: Vital Signs - 24 hr 06/14/17 06/14/17 06/14/17 19:16 19:30 23:45 Temperature 36.5 C 36.9 C Heart Rate 84 Heart Rate [ 98 80 Brachial] Heart Rate [ Radial] Respiratory 16 18 18 Rate Blood Pressure 110/79 Blood Pressure 126/70 115/90 H [Right Brachial artery] O2 Saturation 96 98 100 06/15/17 06/15/17 06/15/17 04:45 08:04 12:25 Temperature 36.7 C 37.4 C 37.5 C Heart Rate Heart Rate [ 88 85 Brachial] Heart Rate [ 69 Radial] Respiratory 16 20 24 Rate Blood Pressure Blood Pressure 127/87 H 108/63 109/58 L [Right Brachial artery] O2 Saturation 98 98 96 06/15/17 16:00 Temperature 37.2 C Heart Rate Heart Rate [ 79 Brachial] Heart Rate [ Radial] Respiratory 18 Rate Blood Pressure Blood Pressure 105/64 [Right Brachial artery] O2 Saturation 100 Oxygen O2 Source Room air I&O (Last 24 Hrs): Intake and Output Totals x24h 06/13/17 06/14/17 06/15/17 23:59 23:59 23:59 Intake Total 1109.333 Output Total 525 550 Balance -525 559.333 General: No acute distress HEENT: Mucous membr. moist/pink, Other (R mandibular swelling, not red, minimally tender.) Neck: Supple Neuro: Other (Pt repeats his words. Mini-mental exam done by me and Pt scored 6/ 30.) Abdomen: Soft, No tenderness Extremities: No edema - Results Results: Laboratory Results WBC 9.1 x10^3/uL (4.8-10.8) 06/14/17 13:14 RBC 3.76 10^6/uL (4.70-6.10) L 06/14/17 13:14 Hgb 11.5 g/dL (14.0-18.0) L 06/14/17 13:14 Hct 33.2 % (42.0-52.0) L 06/14/17 13:14 MCV 88.4 fL (80.0-94.0) 06/14/17 13:14 MCH 30.6 pg (27.0-31.0) 06/14/17 13:14 MCHC 34.6 g/dL (32.0-36.0) 06/14/17 13:14 RDW 19.8 % (12.0-15.0) H 06/14/17 13:14 Plt Count 270 10^3/uL (130-450) 06/14/17 13:14 MPV 8.6 fL (7.4-11.4) 06/14/17 13:14 Neut # 6.7 10^3/uL (1.5-6.6) H 06/14/17 13:14 Lymph # 0.8 10^3/uL (1.5-3.5) L 06/14/17 13:14 [place] # 0.5 10^3/uL (0.0-1.0) 06/14/17 13:14 Eos # 1.0 10^3/uL (0.0-0.7) H 06/14/17 13:14 Baso # 0.1 10^3/uL (0.0-0.1) 06/14/17 13:14 Absolute Nucleated RBC 0.00 x10^3/uL 06/14/17 13:14 Nucleated RBC % 0.0 /100WBC 06/14/17 13:14 Sodium 127 mmol/L (135-145) L 06/14/17 13:14 Potassium 3.8 mmol/L (3.5-5.0) 06/14/17 13:14 Chloride 98 mmol/L (101-111) L 06/14/17 13:14 Carbon Dioxide 19 mmol/L (21-32) L 06/14/17 13:14 Anion Gap 10.0 (6-13) 06/14/17 13:14 BUN 11 mg/dL (6-20) 06/14/17 13:14 Creatinine 1.2 mg/dL (0.6-1.2) 06/14/17 13:14 Estimated GFR (MDRD) 59 (>89) L 06/14/17 13:14 Glucose 106 mg/dL (70-100) H 06/14/17 13:14 Lactic Acid 1.1 mmol/L (0.5-2.2) 06/14/17 13:14 Calcium 9.0 mg/dL (8.5-10.3) 06/14/17 13:14 Total Bilirubin 0.8 mg/dL (0.2-1.0) 06/14/17 13:14 AST 30 IU/L (10-42) 06/14/17 13:14 ALT 21 IU/L (10-60) 06/14/17 13:14 Alkaline Phosphatase 60 IU/L (42-121) 06/14/17 13:14 Troponin I 0.04 ng/mL (<0.49) 06/14/17 13:14 Total Protein 5.1 g/dL (6.7-8.2) L 06/14/17 13:14 Albumin 2.8 g/dL (3.2-5.5) L 06/14/17 13:14 Globulin 2.3 g/dL (2.1-4.2) 06/14/17 13:14 Albumin/Globulin Ratio 1.2 (1.0-2.2) 06/14/17 13:14 Lipase 11 U/L (22-51) L 06/14/17 13:14 Urine Color YELLOW 06/14/17 15:12 Urine Clarity CLEAR (CLEAR) 06/14/17 15:12 Urine pH 6.0 PH (5.0-7.5) 06/14/17 15:12 Ur Specific [place] 1.025 (1.002-1.030) 06/14/17 15:12 Urine Protein NEGATIVE mg/dL (NEGATIVE) 06/14/17 15:12 Urine Glucose (UA) NEGATIVE mg/dL (NEGATIVE) 06/14/17 15:12 Urine Ketones NEGATIVE mg/dL (NEGATIVE) 06/14/17 15:12 Urine Occult Blood NEGATIVE (NEGATIVE) 06/14/17 15:12 Urine Nitrite NEGATIVE (NEGATIVE) 06/14/17 15:12 Urine Bilirubin NEGATIVE (NEGATIVE) 06/14/17 15:12 Urine Urobilinogen 0.2 (NORMAL) E.U./dL (NORMAL) 06/14/17 15:12 Ur Leukocyte Esterase NEGATIVE (NEGATIVE) 06/14/17 15:12 Ur Microscopic Review NOT INDICATED 06/14/17 15:12 Urine Culture Comments NOT INDICATED 06/14/17 15:12 Last Dose Date UNKNOWN 06/14/17 13:14 Last Dose Time UNKNOWN 06/14/17 13:14 Digoxin 0.3 ng/mL 06/14/17 13:14 - Procedures Procedures: Procedures EXCISION OF HEAD LYMPHATIC, OPEN APPROACH, DIAGNOSTIC (08/20/16) INSERTION OF TOTALLY IMPLANTABLE VASC ACCESS DEVIC (01/02/13) LYMPHATIC STRUCT BIOPSY (12/17/13) OTHER OPEN UMBILICAL HERNIORRHAPHY (03/02/14) THORAX SFT TISS XRAY NEC (01/02/13)
[2017-06-15] MEDS ORDERED: IOPAMIDOL-300 100 ML VIAL ONE (19:51)
[2017-06-15] MEDS ORDERED: IOPAMIDOL-300 100 ML VIAL IVP ONE (20:22)
--- NOTE | 2017-06-15 21:25 | CT Preliminary Report ---
Exam: CT HEAD W/WO Impression: No intercranial hemorrhage, masses, or other discrete acute intracranial process identified. Acute st roke is not excluded by CT. Chronic appearing, right greater than left, maxillary sinusitis incompletely characterized. SITE ID: [id number]
--- NOTE | 2017-06-15 21:30 | CT Report ---
EXAM: CT HEAD WITHOUT CONTRAST COMPARISON: Brain MRI, 09/18/2016. CLINICAL HISTORY: Confusion, evaluate for a stroke. TECHNIQUE: Axial CT images were obtained from the foramen magnum to the vertex without contrast In accordance with CT protocol optimization, one or more of the following dose reduction techniques w ere utilized for this exam: automated exposure control, adjustment of mA and/or KV based on patient s ize, or use of iterative reconstructive technique. FINDINGS: No intracranial hemorrhage. No masses. No unexpected intra-or extra-axial fluid collections. Ventricles are prominent, concordant with volume loss, as before. No lytic or blastic bone lesions are seen. There is chronic-appearing bilateral, right worse than left, maxillary sinusitis, incompletely charac terized on this head CT. No dense vessels. IMPRESSION: No intracranial hemorrhage, masses, or other discrete acute intracranial process identified. Acute st roke is not excluded by CT. Chronic-appearing, right greater than left, maxillary sinusitis, incompletely characterized. Referring Provider Line: [phone] SITE ID: [id number]
--- NOTE | 2017-06-15 21:42 | CT Preliminary Report ---
Exam: CT NECK SOFT TISSUE W/ Impression: Surgical clips are demonstrated in the right neck, as before. There is interval development of inflam matory findings in the area of the right sternocleidomastoid muscle, and dorsal to it, without a disc rete underlying abscess. Finding does not appear related to the right parotid or submandibular gland. There is clear thickening of the right-sided cervicofacial fascia. Overall features are most suggest luly of a cellulitis/myositis, of uncertain etiology. SITE ID: [id number]
--- NOTE | 2017-06-15 22:07 | CT Report ---
EXAM: CT NECK WITH CONTRAST COMPARISON: CT head, 06/15/2017; CT neck, 05/14/2017. CLINICAL HISTORY: Swelling, right lower mandible, history of melanoma. TECHNIQUE: Axial images were acquired through the neck after intravenous administration of 80 mL Isov ue-300. Coronal and Sagittal reconstructions are created from source data. In accordance with CT protocol optimization, one or more of the following dose reduction techniques w ere utilized for this exam: automated exposure control, adjustment of mA and/or KV based on patient s ize, or use of iterative reconstructive technique. FINDINGS: There is extensive multilevel cervical spondylosis, as before. Multiple pulmonary nodules are redemonstrated, incompletely characterized. Redemonstrated is a left subclavian pacer, as before. No discrete lytic or blastic bone lesions are identified. Visualized intracranial contents show no definite abnormality, evaluation deferred to head CT perform ed today. No discrete lytic or blastic bone lesions are identified. There is acute on chronic-appearing right maxillary and left maxillary sinusitis, right worse than le ft. Mastoids are clear. The zygomatic arches are intact. Temporomandibular joints are normally located. The epiglottis is normal. Base of tongue is normal. No retropharyngeal fluid. Surgical clips are demonstrated in the right neck. At least mild inflammatory findings are present in the right neck, these are predominantly at the guerita rosendo aspect of the right sternocleidomastoid muscle, and involving the right cervicofacial fascia. A d iscrete abscess is not identified. Finding does not appear to be odontogenic in origin. The right parotid gland appears relatively unremarkable, as does the right submandibular gland. IMPRESSION: Surgical clips are demonstrated in the right neck, as before. There is interval development of inflam matory findings in the area of the right sternocleidomastoid muscle, and dorsal to it, without a disc rete underlying abscess. Finding does not appear related to the right parotid or submandibular gland. There is clear thickening of the right-sided cervicofacial fascia. Overall features are most suggest luly of a cellulitis/myositis, of uncertain etiology. Referring Provider Line: [phone] SITE ID: [id number]
[2017-06-16] MEDS: SODIUM CHLORIDE FLUSH 0.9% 10 ML SYRINGE IVP SCH ×3 (04:02→16:34)
[2017-06-16 05:59] LABS: BASOPHILS % (AUTO) 0.5 %; EOSINOPHILS # (AUTO) 1.3 10^3/uL (0.0-0.7); EOSINOPHILS % (AUTO) 17.7 %; HGB - HEMOGLOBIN 9.9 g/dL (14.0-18.0); LYMPHOCYTES # (AUTO) 0.7 10^3/uL (1.5-3.5); LYMPHOCYTES % (AUTO) 9.6 %; MEAN CORPUSCULAR HEMOGLOBIN 29.8 pg (27.0-31.0); MEAN CORPUSCULAR HGB CONC 33.3 g/dL (32.0-36.0); MEAN CORPUSCULAR VOLUME 89.4 fL (80.0-94.0); MEAN PLATELET VOLUME 8.4 fL (7.4-11.4); MONOCYTES # (AUTO) 0.6 10^3/uL (0.0-1.0); MONOCYTES % (AUTO) 8.8 %; NEUTROPHILS # (AUTO) 4.7 10^3/uL (1.5-6.6); NEUTROPHILS % (AUTO) 63.4 %; PLT - PLATELET COUNT 273 10^3/uL (130-450); RED BLOOD COUNT 3.32 10^6/uL (4.70-6.10); RED CELL DISTRIBUTION WIDTH 20.6 % (12.0-15.0); WHITE BLOOD COUNT 7.4 x10^3/uL (4.8-10.8)
[2017-06-16 06:01] LABS: CREATININE 1.2 mg/dL (0.6-1.2); MAGNESIUM 1.6 mg/dL (1.7-2.8)
[2017-06-16 06:17] LABS: PLATELET ESTIMATE, MANUAL NORMAL (130-450,000) (NORMAL)
[2017-06-16] MEDS: DEXTROSE 5%-0.9% NACL 1,000 ML IV SCH (07:06)
--- NOTE | 2017-06-16 08:37 | PROVIDER PROGRESS NOTE ---
Assessment/Plan - Problem List (1) Cellulitis of neck Assessment/Plan: This may have been the cause of new weakness and alytered mental status. Will begin iv antibiotics to cover skin and nasopharyngeal source in an immunocompromised patient. IV Ofirmev for pain or narcotics if needed. Blood cultures were already obtained and are neg to date. Follow CBC. (2) Sinusitis Qualifiers: Sinusitis location: maxillary Assessment/Plan: Begin Afrin. iv antibiotics as above to cover nasopharyngeal source in an immunocompromised patient. (3) General weakness Assessment/Plan: Waxing and waning symptoms. Continue to support with feeding when needed. He appears to have improved po intake on pureed diet. (4) Hyponatremia Assessment/Plan: Improved. (5) Altered mental status Assessment/Plan: Continue supportive care. Pt has been made a DNR. Palliative care consult pending on Saturday. (6) Metastatic melanoma Assessment/Plan: No sign of brain mets by head CT, or of new mass in R neck region by CT of neck. (7) Dehydration Assessment/Plan: Resolved. - Current Meds Current Meds: Current Medications Generic Name Dose Route Start Last Admin Trade Name Freq PRN Reason Stop Dose Admin Acetaminophen 650 mg 06/14/17 18:22 06/16/17 01:09 Tylenol PO 650 mg Q4HR PRN Administration Pain or Fever > 38C (100.4F) Aspirin 81 mg 06/15/17 09:00 06/15/17 10:17 [facility] [place] Aspirin PO Not Given DAILY MIGNON Famotidine 20 mg 06/15/17 09:00 06/15/17 10:16 Pepcid PO Not Given DAILY MIGNON Dextrose/Sodium Chloride 1,000 mls @ 40 mls/hr 06/15/17 13:33 06/16/17 07:06 D5ns IV 40 mls/hr .Q25H MIGNON Administration Multivitamins 1 tab 06/15/17 09:00 06/15/17 10:16 Theragran PO Not Given DAILY MIGNON Polyethylene Glycol 17 gm 06/15/17 09:00 06/15/17 10:17 Miralax PO Not Given DAILY MIGNON Sodium Chloride 10 ml 06/15/17 01:00 06/16/17 04:02 Normal Saline Flush 0.9% IVP Not Given 0100,0900,1700 MIGNON Sodium Chloride 1 gm 06/15/17 03:00 06/15/17 10:18 Salt Tab PO 1 gm DAILY MIGNON Administration - Lab Result Fish Bone Diagrams: 06/16/17 05:28 06/16/17 05:28 - Additional Planning My Orders: My Active Orders 06/15/17 09:00 Aspirin Chewable [[facility] [place] Aspirin] 81 mg PO DAILY Multivitamin [Theragran] 1 tab PO DAILY 06/15/17 13:33 Dextrose 5%-0.9% NaCl [D5ns] 1,000 ml IV 40 mls/hr 06/15/17 Lunch DIET [Dysphagia Puree Diet] [DIET] 06/17/17 05:00 VITAMIN D,D2,D3 PANEL [REFLAB] Routine Subjective - Subjective Patient Reports: Resting Comfortably, No Complaints Nursing Reports: Other (Per RN: R eye drainage. R ear drainage or wax and R ear pain. R mouth pain. Pt was able to feed himself this am, back to weakness and confusion by lunchtime.) Objective Vital Signs: Vital Signs - 24 hr 06/15/17 06/15/17 06/15/17 12:25 16:00 19:40 Temperature 37.5 C 37.2 C 37.2 C Heart Rate [ 79 Brachial] Heart Rate [ 69 82 Radial] Respiratory 24 18 18 Rate Blood Pressure [Left Brachial artery] Blood Pressure 109/58 L 105/64 104/61 [Right Brachial artery] O2 Saturation 96 100 99 06/16/17 06/16/17 06/16/17 00:00 03:53 08:12 Temperature 37.3 C 36.8 C 36.8 C Heart Rate [ Brachial] Heart Rate [ 85 66 78 Radial] Respiratory 18 18 20 Rate Blood Pressure 81/63 L [Left Brachial artery] Blood Pressure 126/51 L 91/50 L [Right Brachial artery] O2 Saturation 99 95 100 Oxygen O2 Source Room air I&O (Last 24 Hrs): Intake and Output Totals x24h 06/14/17 06/15/17 06/16/17 23:59 23:59 23:59 Intake Total 2109.333 1060 Output Total 525 700 250 Balance -525 1409.333 810 General: Alert HEENT: Other (Dry wax in R ear canal, no liquid drainage. R eye appears normal without crusting or drainage or redness.) Neck: Other (Swollen area at posterior mandible along SCM muscle is smaller than yesterday, non-tender, not red.) Neuro: Disoriented Cardiovascular: Regular rate, No murmurs Respiratory: No respiratory distress, Breath sounds nml Abdomen: Soft Extremities: No edema - Results Results: Laboratory Results WBC 7.4 x10^3/uL (4.8-10.8) 06/16/17 05:28 RBC 3.32 10^6/uL (4.70-6.10) L 06/16/17 05:28 Hgb 9.9 g/dL (14.0-18.0) L 06/16/17 05:28 Hct 29.7 % (42.0-52.0) L 06/16/17 05:28 MCV 89.4 fL (80.0-94.0) 06/16/17 05:28 MCH 29.8 pg (27.0-31.0) 06/16/17 05:28 MCHC 33.3 g/dL (32.0-36.0) 06/16/17 05:28 RDW 20.6 % (12.0-15.0) H 06/16/17 05:28 Plt Count 273 10^3/uL (130-450) 06/16/17 05:28 MPV 8.4 fL (7.4-11.4) 06/16/17 05:28 Neut # 4.7 10^3/uL (1.5-6.6) 06/16/17 05:28 Lymph # 0.7 10^3/uL (1.5-3.5) L 06/16/17 05:28 [place] # 0.6 10^3/uL (0.0-1.0) 06/16/17 05:28 Eos # 1.3 10^3/uL (0.0-0.7) H 06/16/17 05:28 Baso # 0.0 10^3/uL (0.0-0.1) 06/16/17 05:28 Absolute Nucleated RBC 0.00 x10^3/uL 06/16/17 05:28 Nucleated RBC % 0.0 /100WBC 06/16/17 05:28 Manual Slide Review Indicated 06/16/17 05:28 Platelet Estimate NORMAL (130-450,000) (NORMAL) 06/16/17 05:28 RBC Morph Micro Appear 1+ ANISOCYTOSIS (NORMAL) 1+ OVALOCYTES (NORMAL) 1+ HYPOCHROMASIA (NORMAL) 06/16/17 05:28 RBC Morph Micro Appear 1+ ANISOCYTOSIS (NORMAL) 1+ OVALOCYTES (NORMAL) 1+ HYPOCHROMASIA (NORMAL) 06/16/17 05:28 RBC Morph Micro Appear 1+ ANISOCYTOSIS (NORMAL) 1+ OVALOCYTES (NORMAL) 1+ HYPOCHROMASIA (NORMAL) 06/16/17 05:28 Sodium 130 mmol/L (135-145) L 06/16/17 05:28 Potassium 3.4 mmol/L (3.5-5.0) L 06/16/17 05:28 Chloride 105 mmol/L (101-111) 06/16/17 05:28 Carbon Dioxide 19 mmol/L (21-32) L 06/16/17 05:28 Anion Gap 6.0 (6-13) 06/16/17 05:28 BUN 8 mg/dL (6-20) 06/16/17 05:28 Creatinine 1.2 mg/dL (0.6-1.2) 06/16/17 05:28 Estimated GFR (MDRD) 59 (>89) L 06/16/17 05:28 Glucose 104 mg/dL (70-100) H 06/16/17 05:28 Lactic Acid 1.1 mmol/L (0.5-2.2) 06/14/17 13:14 Calcium 8.0 mg/dL (8.5-10.3) L 06/16/17 05:28 Magnesium 1.6 mg/dL (1.7-2.8) L 06/16/17 05:28 Total Bilirubin 0.8 mg/dL (0.2-1.0) 06/14/17 13:14 AST 30 IU/L (10-42) 06/14/17 13:14 ALT 21 IU/L (10-60) 06/14/17 13:14 Alkaline Phosphatase 60 IU/L (42-121) 06/14/17 13:14 Troponin I 0.04 ng/mL (<0.49) 06/14/17 13:14 B-Natriuretic Peptide 520 pg/mL (5-100) H 06/16/17 05:28 Total Protein 5.1 g/dL (6.7-8.2) L 06/14/17 13:14 Albumin 2.8 g/dL (3.2-5.5) L 06/14/17 13:14 Globulin 2.3 g/dL (2.1-4.2) 06/14/17 13:14 Albumin/Globulin Ratio 1.2 (1.0-2.2) 06/14/17 13:14 Lipase 11 U/L (22-51) L 06/14/17 13:14 Urine Color YELLOW 06/14/17 15:12 Urine Clarity CLEAR (CLEAR) 06/14/17 15:12 Urine pH 6.0 PH (5.0-7.5) 06/14/17 15:12 Ur Specific [place] 1.025 (1.002-1.030) 06/14/17 15:12 Urine Protein NEGATIVE mg/dL (NEGATIVE) 06/14/17 15:12 Urine Glucose (UA) NEGATIVE mg/dL (NEGATIVE) 06/14/17 15:12 Urine Ketones NEGATIVE mg/dL (NEGATIVE) 06/14/17 15:12 Urine Occult Blood NEGATIVE (NEGATIVE) 06/14/17 15:12 Urine Nitrite NEGATIVE (NEGATIVE) 06/14/17 15:12 Urine Bilirubin NEGATIVE (NEGATIVE) 06/14/17 15:12 Urine Urobilinogen 0.2 (NORMAL) E.U./dL (NORMAL) 06/14/17 15:12 Ur Leukocyte Esterase NEGATIVE (NEGATIVE) 06/14/17 15:12 Ur Microscopic Review NOT INDICATED 06/14/17 15:12 Urine Culture Comments NOT INDICATED 06/14/17 15:12 Last Dose Date UNKNOWN 06/14/17 13:14 Last Dose Time UNKNOWN 06/14/17 13:14 Digoxin 0.3 ng/mL 06/14/17 13:14 - Procedures Procedures: Procedures EXCISION OF HEAD LYMPHATIC, OPEN APPROACH, DIAGNOSTIC (08/20/16) INSERTION OF TOTALLY IMPLANTABLE VASC ACCESS DEVIC (01/02/13) LYMPHATIC STRUCT BIOPSY (12/17/13) OTHER OPEN UMBILICAL HERNIORRHAPHY (03/02/14) THORAX SFT TISS XRAY NEC (01/02/13)
[2017-06-16] MEDS: FAMOTIDINE 20 MG TABLET PO SCH (10:22)
[2017-06-16] MEDS: ASPIRIN CHEW 81 MG TABLET PO SCH (10:22)
[2017-06-16] MEDS: SODIUM CHLORIDE 1 GM TABLET PO SCH (10:22)
[2017-06-16] MEDS: OXYMETAZOLINE NASAL SPRAY NAS SCH ×2 (10:22→21:57)
[2017-06-16] MEDS: MULTIVITAMIN TABLET PO SCH (10:22)
[2017-06-16] MEDS: PIPERACILLIN/TAZOBACTAM 4.5 GM in SODIUM CHLORIDE 0.9% MINIBAG 100 ML IV SCH ×3 (10:29→22:30)
[2017-06-16] MEDS: POLYETHYLENE GLYCOL 3350 17 GM PACKET PO SCH (10:30)
[2017-06-16] MEDS ORDERED: MAGNESIUM SULFATE 2 GRAM 2 GM/50 ML BAG IV ONE (22:02)
[2017-06-16] MEDS ORDERED: POTASSIUM CHLORIDE 20 MEQ TABLET PO ONE (22:02)
[2017-06-17] MEDS ORDERED: MAGNESIUM SULFATE 2 GRAM 2 GM/50 ML BAG IV ONE (00:56)
--- NOTE | 2017-06-17 02:15 | HISTORY & PHYSICAL EXAMINATION ---
DATE OF SERVICE: 06/14/2017 Physician: Deanna Landers MD HISTORY OF PRESENT ILLNESS: This is a 71-year-old white male with a history of melanoma with stage IV metastasis, on chemotherapy, history of chronic AFib, chronic anemia, chronic low blood pressure according to the , and very erratic heart rates according to the who takes his vital signs, she is a retired [employer]. The patient went to a normal clinic visit and was so weak that he could not get out of the car. The weakness has been progressing for approximately 2 days without any other symptoms. The had checked his blood pressure that day, and it was 74 systolic, and therefore, she took him to the emergency room. In the emergency room, he did have an initial blood pressure that was 70, increased to 90 with 1 liter of fluids. His admission heart rate in the ER was 50 and has been fluctuating between 50 and 60. Patient denied any lightheadedness or syncope, palpitations, chest pain, shortness of breath, nausea, vomiting or diarrhea, or changes of medications. The gives most of the history, however. PAST MEDICAL HISTORY: Chronic atrial fibrillation with a very erratic heart rate according to the , chronic anemia. NE several months ago, treated at [facility] in [place], and apparently only medical management was done because the patient refused an angiogram. History of melanoma with stage IV spread, getting chemotherapy. REVIEW OF SYSTEMS: There have been no other symptoms except the reports that his appetite has been very poor for many weeks. The patient states there is some mild pain in the right knee where he had a cat scratch him. A comprehensive review of systems was performed, and all other findings are negative except as above. ALLERGIES: NONE. MEDICATIONS 1. Terazosin 10 mg p.o. daily. 2. Senna 8.6 mg b.i.d. p.r.n. constipation. 3. Digoxin 125 mcg p.o. daily. 4. Sublingual nitroglycerin p.r.n. angina. 5. Baby aspirin daily. 6. Multivitamin daily. SOCIAL HISTORY: The patient is a nonsmoker, who never smoked, drinks no alcohol , has never used illicit drugs. PHYSICAL EXAMINATION GENERAL: Cachectic white male. He appears pale. He is in no distress. VITAL SIGNS: Blood pressure 97/57, pulse 55, in atrial fibrillation, afebrile, room air saturation 100%. HEENT: Exam reveals poor dentition. Dry oral mucosa. There are postsurgical changes near the right ear lobe. NECK: Exam shows no JVD in a vertical position. No carotid bruits, thyromegaly , or lymphadenopathy. CHEST: Clear. HEART: Sounds are normal except irregular, no murmur is heard. ABDOMEN: Soft, nontender with positive bowel sounds. No organomegaly. EXTREMITIES: No clubbing, cyanosis, or edema. The right knee has no wound to be noted. SKIN: Tenting. NEUROLOGIC: He is hard of hearing, grossly intact, and has slow speech but appropriate. LABORATORY DATA: Troponin is 0.04. Normal liver tests. Albumin is 2.8. White blood count 9.1, hemoglobin 11.5, RDW high at 19. Platelet count normal at 270. No INR was done. Toxicology shows a digoxin level of 0.3. Urine essentially normal. EKG: Atrial fib, right bundle branch block, left anterior fascicular block, anterior ST depressions and T-wave inversions V1 through V4, possible Q-waves in leads III and aVF. CHEST X-RAY: No acute pulmonary disease except multiple bilateral lung nodules are seen and some of the nodules on the left lower lung appear larger than in the past and there is stable cardiomegaly. IMPRESSION/DIAGNOSES 1. Hypotension. 2. Dehydration, noted clinically. 3. Bradycardia. 4. Chronic atrial fibrillation. 5. Weakness. 6. Metastatic melanoma. 7. CAD with NE, medical management planned. PLAN 1. Start IV hydration and monitor his labs and clinical exam. 2. Place a [place] since he is too weak to stand and to manage a urinal. 3. Culture the patient, evaluating for possible underlying infection to cause this weakness and hypotension. 4. Begin telemetry; hold any heart rate slowing medications such as digoxin, if there is continued severe bradycardia that is symptomatic, a pacemaker may be indicated, he will be transferred for this. 5. Continue his other medications such as for benign prostatic hypertrophy. 6. This patient's CHADS score equals 1 for possible congestive heart failure because of the history of NE. Therefore, anticoagulation is not indicated, daily aspirin is adequate for stroke prophylaxis. 7. Continue to monitor his electrolytes, magnesium, BUN and creatinine, CBC and correct the values if needed. 8. Code status needs to be determined, especially with a possible poor prognosis with his metastatic melanoma. I discussed this with the patient with the present. The patient states he "wants everything done to continue to live." The tells me that she is considering that he may be needing hospice in the near future. We will obtain a Palliative Care consult to delve deeper into the issues associated with his significant malignancy and unknown prognosis and therefore, address his code status and if he is competent to decide. 9. Deep venous thrombosis prophylaxis: Sequential compression devices. 10. CODE STATUS: FULL CODE. ATTESTATION: The patient is expected to be discharged or transferred to another facility within 96 hours: Yes. (continuation = TD: 06/17/2017 02:23 ) TD: 06/17/2017 02:14 MTDD
[2017-06-17] MEDS: PIPERACILLIN/TAZOBACTAM 4.5 GM in SODIUM CHLORIDE 0.9% MINIBAG 100 ML IV SCH ×4 (04:02→21:45)
[2017-06-17] MEDS: SODIUM CHLORIDE FLUSH 0.9% 10 ML SYRINGE IVP SCH ×3 (04:21→16:56)
[2017-06-17 05:39] LABS: BASOPHILS # (AUTO) 0.1 10^3/uL (0.0-0.1); BASOPHILS % (AUTO) 1.1 %; EOSINOPHILS # (AUTO) 1.8 10^3/uL (0.0-0.7); EOSINOPHILS % (AUTO) 21.3 %; HGB - HEMOGLOBIN 10.9 g/dL (14.0-18.0); LYMPHOCYTES # (AUTO) 0.9 10^3/uL (1.5-3.5); LYMPHOCYTES % (AUTO) 10.6 %; MEAN CORPUSCULAR HEMOGLOBIN 29.8 pg (27.0-31.0); MEAN CORPUSCULAR HGB CONC 33.2 g/dL (32.0-36.0); MEAN CORPUSCULAR VOLUME 89.8 fL (80.0-94.0); MEAN PLATELET VOLUME 8.1 fL (7.4-11.4); MONOCYTES # (AUTO) 0.6 10^3/uL (0.0-1.0); MONOCYTES % (AUTO) 6.7 %; NEUTROPHILS # (AUTO) 5.2 10^3/uL (1.5-6.6); NEUTROPHILS % (AUTO) 60.3 %; PLT - PLATELET COUNT 327 10^3/uL (130-450); RED BLOOD COUNT 3.67 10^6/uL (4.70-6.10); RED CELL DISTRIBUTION WIDTH 21.3 % (12.0-15.0); WHITE BLOOD COUNT 8.6 x10^3/uL (4.8-10.8)
[2017-06-17 05:48] LABS: CALCIUM 7.9 mg/dL (8.5-10.3); CREATININE 1.6 mg/dL (0.6-1.2)
[2017-06-17 06:09] LABS: PLATELET ESTIMATE, MANUAL NORMAL (130-450,000) (NORMAL); PLATELET MORPHOLOGY NORMAL APPEARANCE (NORMAL)
[2017-06-17] MEDS: DEXTROSE 5%-0.9% NACL 1,000 ML IV SCH (09:38)
[2017-06-17] MEDS: ACETAMINOPHEN 1,000 MG/100 ML 100 ML IV PRN ×2 (09:42→18:07)
[2017-06-17] MEDS: MULTIVITAMIN TABLET PO SCH (10:05)
[2017-06-17] MEDS: ASPIRIN CHEW 81 MG TABLET PO SCH (10:05)
[2017-06-17] MEDS: SODIUM CHLORIDE 1 GM TABLET PO SCH (10:06)
[2017-06-17] MEDS: POLYETHYLENE GLYCOL 3350 17 GM PACKET PO SCH (10:06)
[2017-06-17] MEDS: OXYMETAZOLINE NASAL SPRAY NAS SCH ×2 (10:06→21:47)
[2017-06-17] MEDS: FAMOTIDINE 20 MG/50 ML 50 ML IV SCH (10:19)
--- NOTE | 2017-06-17 12:06 | PROVIDER PROGRESS NOTE ---
Assessment/Plan - Problem List (1) Cellulitis of neck Assessment/Plan: Fever spiked today. Pt on iv Zosyn. (2) Sinusitis Qualifiers: Sinusitis location: maxillary Assessment/Plan: iv Zosyn will cover this bacteria as well. Continue Afrin nasal spray for 3-4 days. (3) Dehydration Assessment/Plan: BUN/creat increased today. Will increase fluids from 40-80 cc/hr. Nutrition consult pending regarding type of diet. A swallowing eval will be ordered regarding intermittently refusing po meds, pssibly he cannot manage a swallowing procedure. Will change as many meds as possible from po to iv. (4) Hyponatremia Assessment/Plan: Improving every day. Continue to follow BMP. (5) Altered mental status Assessment/Plan: Less responsive today and too weak to feed himself again. His alertness waxes and wanes. No CVA, less dehydrated, Na is improving. Possibly worse today from spiking a fever. Palliative Care, Lyric Cruz NP is here to do consult today. (6) Metastatic melanoma Assessment/Plan: No evidence of mets on brain CT or neck imaging done yesterday, but he has known metestatic disease. - Current Meds Current Meds: Current Medications Generic Name Dose Route Start Last Admin Trade Name Freq PRN Reason Stop Dose Admin Acetaminophen 650 mg 06/14/17 18:22 06/16/17 01:09 Tylenol PO 650 mg Q4HR PRN Administration Pain or Fever > 38C (100.4F) Aspirin 81 mg 06/15/17 09:00 06/17/17 10:05 [facility] [place] Aspirin PO Not Given DAILY MIGNON Piperacillin Sod/Tazobactam 100 mls @ 200 mls/hr 06/16/17 10:00 06/17/17 11: 47 Sod 4.5 gm/ Sodium Chloride IV 200 mls/hr Q6H MIGNON Administration Acetaminophen 100 mls @ 400 mls/hr 06/17/17 07:27 06/17/17 10:19 Ofirmev IV Infused Q6HR PRN Infusion Pain or Fever > 38C (100.4F) Dextrose/Sodium Chloride 1,000 mls @ 80 mls/hr 06/17/17 07:49 06/17/17 09:38 D5ns IV 80 mls/hr .[id number] MIGNON Administration Famotidine 50 mls @ 100 mls/hr 06/17/17 09:00 06/17/17 11:45 Pepcid 20 Mg/50 Ml IV Infused DAILY MIGNON Infusion Multivitamins 1 tab 06/15/17 09:00 06/17/17 10:05 Theragran PO Not Given DAILY MIGNON Oxymetazoline HCl 2 sprays 06/16/17 09:00 06/17/17 10:06 Afrin SANYA Not Given BID MIGNON Polyethylene Glycol 17 gm 06/15/17 09:00 06/17/17 10:06 Miralax PO Not Given DAILY MIGNON Sodium Chloride 10 ml 06/15/17 01:00 06/17/17 10:06 Normal Saline Flush 0.9% IVP Not Given 0100,0900,1700 MIGNON Sodium Chloride 1 gm 06/15/17 03:00 06/17/17 10:06 Salt Tab PO Not Given DAILY MIGNON - Lab Result Fish Bone Diagrams: 06/17/17 05:20 06/17/17 05:20 - Additional Planning My Orders: My Active Orders 06/17/17 Clinical Swallow Evaluation [ST] Routine 06/17/17 05:20 VITAMIN D,D2,D3 PANEL [REFLAB] Routine 06/17/17 07:27 Acetaminophen 1,000 mg/100 ml [Ofirmev] 100 ml IV Q6HR 06/17/17 07:49 Dextrose 5%-0.9% NaCl [D5ns] 1,000 ml IV 80 mls/hr 06/17/17 09:00 Famotidine 20 mg/50 ml [Pepcid 20 mg/50 ml] 50 ml IV DAILY 06/18/17 05:00 BMP - BASIC METABOLIC PANEL [CHEM] DAILYLAB DIGOXIN [CHEM] Routine Subjective - Subjective Patient Reports: Other (Non-comunicative today.) Nursing Reports: Other (Had a morning fever of 38.4, is refusing his po meds.) Objective Vital Signs: Vital Signs - 24 hr 06/16/17 06/16/17 06/16/17 12:21 15:43 16:30 Temperature 36.9 C 37.2 C Heart Rate [ 75 76 Brachial] Heart Rate [ 85 Radial] Respiratory 22 22 20 Rate Blood Pressure 104/64 [Left Brachial artery] Blood Pressure 93/50 L 104/70 [Right Brachial artery] O2 Saturation 99 100 95 06/16/17 06/17/17 06/17/17 20:20 01:00 03:53 Temperature 37.2 C 37.7 C H 38.4 C H Heart Rate [ 88 80 Brachial] Heart Rate [ 84 Radial] Respiratory 16 18 16 Rate Blood Pressure 112/65 [Left Brachial artery] Blood Pressure 100/70 111/63 [Right Brachial artery] O2 Saturation 99 98 97 06/17/17 06/17/17 06:30 08:13 Temperature 36.5 C 39.0 C H Heart Rate [ 121 H Brachial] Heart Rate [ Radial] Respiratory 20 Rate Blood Pressure [Left Brachial artery] Blood Pressure 112/56 L [Right Brachial artery] O2 Saturation 95 Oxygen O2 Source Room air I&O (Last 24 Hrs): Intake and Output Totals x24h 06/15/17 06/16/17 06/17/17 23:59 23:59 23:59 Intake Total 2109.333 1480 1300.000 Output Total 700 650 425 Balance 1409.333 830 875.000 General: Other (Eyes open, tracks, does not answer.) HEENT: Mucous membr. moist/pink Neck: Other (R neck swelling is minimally better and non-tender.) Neuro: Disoriented Cardiovascular: Regular rate, No murmurs Respiratory: No respiratory distress, Other (Pt has bouts of Kussmaul respirations (while I am in room).) Abdomen: Soft Extremities: No edema - Results Results: Laboratory Results WBC 8.6 x10^3/uL (4.8-10.8) 06/17/17 05:20 RBC 3.67 10^6/uL (4.70-6.10) L 06/17/17 05:20 Hgb 10.9 g/dL (14.0-18.0) L 06/17/17 05:20 Hct 32.9 % (42.0-52.0) L 06/17/17 05:20 MCV 89.8 fL (80.0-94.0) 06/17/17 05:20 MCH 29.8 pg (27.0-31.0) 06/17/17 05:20 MCHC 33.2 g/dL (32.0-36.0) 06/17/17 05:20 RDW 21.3 % (12.0-15.0) H 06/17/17 05:20 Plt Count 327 10^3/uL (130-450) 06/17/17 05:20 MPV 8.1 fL (7.4-11.4) 06/17/17 05:20 Neut # 5.2 10^3/uL (1.5-6.6) 06/17/17 05:20 Lymph # 0.9 10^3/uL (1.5-3.5) L 06/17/17 05:20 [place] # 0.6 10^3/uL (0.0-1.0) 06/17/17 05:20 Eos # 1.8 10^3/uL (0.0-0.7) H 06/17/17 05:20 Baso # 0.1 10^3/uL (0.0-0.1) 06/17/17 05:20 Absolute Nucleated RBC 0.00 x10^3/uL 06/17/17 05:20 Nucleated RBC % 0.0 /100WBC 06/17/17 05:20 Manual Slide Review Indicated 06/17/17 05:20 Platelet Estimate NORMAL (130-450,000) (NORMAL) 06/17/17 05:20 Platelet Morphology NORMAL APPEARANCE (NORMAL) 06/17/17 05:20 RBC Morph Micro Appear 1+ ANISOCYTOSIS (NORMAL) 1+ OVALOCYTES (NORMAL) 1+ HYPOCHROMASIA (NORMAL) 06/16/17 05:28 RBC Morph Micro Appear 1+ ANISOCYTOSIS (NORMAL) 1+ OVALOCYTES (NORMAL) 1+ HYPOCHROMASIA (NORMAL) 06/16/17 05:28 RBC Morph Micro Appear 1+ ACANTHOCYTES (NORMAL) 1+ CORBIN CELLS (NORMAL) 1+ HYPOCHROMASIA (NORMAL) 1+ OVALOCYTES (NORMAL) 2+ ANISOCYTOSIS (NORMAL) 08/30 05:20 RBC Morph Micro Appear 1+ ACANTHOCYTES (NORMAL) 1+ CORBIN CELLS (NORMAL) 1+ HYPOCHROMASIA (NORMAL) 1+ OVALOCYTES (NORMAL) 2+ ANISOCYTOSIS (NORMAL) 08/30 05:20 RBC Morph Micro Appear 1+ ACANTHOCYTES (NORMAL) 1+ CORBIN CELLS (NORMAL) 1+ HYPOCHROMASIA (NORMAL) 1+ OVALOCYTES (NORMAL) 2+ ANISOCYTOSIS (NORMAL) 08/30 05:20 RBC Morph Micro Appear 1+ ACANTHOCYTES (NORMAL) 1+ CORBIN CELLS (NORMAL) 1+ HYPOCHROMASIA (NORMAL) 1+ OVALOCYTES (NORMAL) 2+ ANISOCYTOSIS (NORMAL) 08/30 05:20 RBC Morph Micro Appear 1+ ACANTHOCYTES (NORMAL) 1+ CORBIN CELLS (NORMAL) 1+ HYPOCHROMASIA (NORMAL) 1+ OVALOCYTES (NORMAL) 2+ ANISOCYTOSIS (NORMAL) 08/30 05:20 Sodium 134 mmol/L (135-145) L 06/17/17 05:20 Potassium 3.6 mmol/L (3.5-5.0) 06/17/17 05:20 Chloride 108 mmol/L (101-111) 06/17/17 05:20 Carbon Dioxide 20 mmol/L (21-32) L 06/17/17 05:20 Anion Gap 6.0 (6-13) 06/17/17 05:20 BUN 11 mg/dL (6-20) 06/17/17 05:20 Creatinine 1.6 mg/dL (0.6-1.2) H 06/17/17 05:20 Estimated GFR (MDRD) 43 (>89) L 06/17/17 05:20 Glucose 97 mg/dL (70-100) 06/17/17 05:20 Lactic Acid 1.1 mmol/L (0.5-2.2) 06/14/17 13:14 Calcium 7.9 mg/dL (8.5-10.3) L 06/17/17 05:20 Magnesium 2.0 mg/dL (1.7-2.8) 06/17/17 05:20 Total Bilirubin 0.8 mg/dL (0.2-1.0) 06/14/17 13:14 AST 30 IU/L (10-42) 06/14/17 13:14 ALT 21 IU/L (10-60) 06/14/17 13:14 Alkaline Phosphatase 60 IU/L (42-121) 06/14/17 13:14 Troponin I 0.04 ng/mL (<0.49) 06/14/17 13:14 B-Natriuretic Peptide 520 pg/mL (5-100) H 06/16/17 05:28 Total Protein 5.1 g/dL (6.7-8.2) L 06/14/17 13:14 Albumin 2.8 g/dL (3.2-5.5) L 06/14/17 13:14 Globulin 2.3 g/dL (2.1-4.2) 06/14/17 13:14 Albumin/Globulin Ratio 1.2 (1.0-2.2) 06/14/17 13:14 Lipase 11 U/L (22-51) L 06/14/17 13:14 Urine Color YELLOW 06/14/17 15:12 Urine Clarity CLEAR (CLEAR) 06/14/17 15:12 Urine pH 6.0 PH (5.0-7.5) 06/14/17 15:12 Ur Specific [place] 1.025 (1.002-1.030) 06/14/17 15:12 Urine Protein NEGATIVE mg/dL (NEGATIVE) 06/14/17 15:12 Urine Glucose (UA) NEGATIVE mg/dL (NEGATIVE) 06/14/17 15:12 Urine Ketones NEGATIVE mg/dL (NEGATIVE) 06/14/17 15:12 Urine Occult Blood NEGATIVE (NEGATIVE) 06/14/17 15:12 Urine Nitrite NEGATIVE (NEGATIVE) 06/14/17 15:12 Urine Bilirubin NEGATIVE (NEGATIVE) 06/14/17 15:12 Urine Urobilinogen 0.2 (NORMAL) E.U./dL (NORMAL) 06/14/17 15:12 Ur Leukocyte Esterase NEGATIVE (NEGATIVE) 06/14/17 15:12 Ur Microscopic Review NOT INDICATED 06/14/17 15:12 Urine Culture Comments NOT INDICATED 06/14/17 15:12 Last Dose Date UNKNOWN 06/14/17 13:14 Last Dose Time UNKNOWN 06/14/17 13:14 Digoxin 0.3 ng/mL 06/14/17 13:14 - Procedures Procedures: Procedures EXCISION OF HEAD LYMPHATIC, OPEN APPROACH, DIAGNOSTIC (08/20/16) INSERTION OF TOTALLY IMPLANTABLE VASC ACCESS DEVIC (01/02/13) LYMPHATIC STRUCT BIOPSY (12/17/13) OTHER OPEN UMBILICAL HERNIORRHAPHY (03/02/14) THORAX SFT TISS XRAY NEC (01/02/13)
--- NOTE | 2017-06-17 14:08 | CONSULTATION NOTE ---
Palliative Care Consultation - Referral Referring Provider: Dr. Madie Ratliff Time of Visit: [id number] Referral setting: Hospitalized patient Referral Reason: Metastatic melanoma/Goals of Care - Information Sources Records reviewed: RN notes reviewed, Previous records reviewed History/Review of Systems obtained from: Family (dependent on medical record; gave history) Exam limitations: Clinical condition (patient mostly nonverbal; unable/ unwilling to participate in exam/ROS) - History of Present Illness Brief History of Present Illness: This is a 71-year-old gentleman with metastatic melanoma, his original melanoma diagnosis was on his ear, he did have surgical revision of this. He then had reoccurrence involving the right parotid gland and right neck lymph node status post surgery with positive margins in 11/2016. In his staging workup he was found to have metastatic nodules to his lungs, and was initiated on immunotherapy. His most recent CT scan on 05/14/2017 did show progression of disease with largest single nodule at the right lung base at 4.1 cm. Patient has had difficulty with recurrent episodes of hypotension, dehydration, and trips to the emergency room. Most recently he did have a diagnosis of an STEMI and ended up with a admit to [facility]. It is known that he does have significant heart failure with an ejection fraction documented at 15-20%. He did receive his immunotherapy of D5, 2 weeks ago. reports during this last 2 weeks he has been mostly bedbound, little oral intake, with soft loose stools, and has become dehydrated. She did have an appointment to see him follow-up with his primary care last Saturday, she was unable to get him out of the car and he ended up in the emergency room. Currently he has been diagnosed with sinusitis and infection in his neck, he is receiving IV antibiotics. He though has continued had fluctuating mental status, and today he is fairly nonverbal though is able to make eye contact and responds to his with a few sentences. She reports he has had baseline forgetfulness but this is a significant change. There was some concern given his atrial fib that he has had a stroke, though his CT scan does not show any abnormalities. Patient is on immunotherapy, this can cause multiple side effects that may or may not be clear including GI toxicities, neuro toxicities, adrenal insufficiency, and treatment is usually Solu-Medrol 125 mg a day. Patient is unable to participate in conversation around goals of care, reports patient is in somewhat denial, had very little insight to the seriousness of his disease, though they did understand the treatment was palliative in nature. Her focus is on comfort, please see palliative care discussion for further goals of care conversation. Medical/Surgical History - Past Medical History Cardiovascular: reports: [place] (a few weeks ago), Atrial fibrillation Respiratory: reports: None Neuro: reports: Other (has had forgetfulness; but more acute changes over last two weeks and with hospitalization confusion) Endocrine/Autoimmune: reports: Other (lymphoma in remision) GI: reports: GERD : reports: Benign prostate hypertrophy, Renal insuffiency HEENT: reports: None Psych: reports: Panic attacks Musculoskeletal: reports: None Derm: reports: Other (rash on forearms since initiation of immunotherapy) MRSA Hx?: No - Past Surgical History General: reports: Hiatal hernia repair HEENT: reports: Other Derm: reports: Skin cancer surgery (right ear revision; s/p right parotid gland and right neck lymph node) - Substance History Use: Uses substance without health or social issues: NONE Social History - Living Situation Living arrangement: At home Living Situation: With spouse/s.o., With family (Patient has been a ticket collector in the past, also has been a [id number] dad. He and his moved up to [facility] to live with her daughter, to provide support for their grandchild who is 11. They have been 42 years.) Family History - Family History Family History: Mother: , Father: , Brother: , CVA/TIA, Other family: Alive and Well (daughter had seizure disorder in youth; 3 sister alive; he is the youngest sibling) Medications/Allergies - Medications Active Medication List: Active Medications Acetaminophen (Tylenol) 650 mg PO Q4HR PRN PRN Reason: Pain or Fever > 38C (100.4F) Last Admin: 06/16/17 01:09 Dose: 650 mg Aspirin ([place] Aspirin) 81 mg PO DAILY [facility] Last Admin: 06/17/17 10:05 Dose: Not Given Hydromorphone HCl (Dilaudid Inj Syringe) 0.5 mg IVP Q2H PRN PRN Reason: Pain 8 to 10 Piperacillin Sod/Tazobactam (Sod 4.5 gm/ Sodium Chloride) 100 mls @ 200 mls/hr IV Q6H [facility] Last Infusion: 06/17/17 13:27 Dose: Infused Acetaminophen (Ofirmev) 100 mls @ 400 mls/hr IV Q6HR PRN PRN Reason: Pain or Fever > 38C (100.4F) Last Infusion: 06/17/17 10:19 Dose: Infused Dextrose/Sodium Chloride (D5ns) 1,000 mls @ 80 mls/hr IV .[id number] [facility] Last Admin: 06/17/17 09:38 Dose: 80 mls/hr Famotidine (Pepcid 20 Mg/50 Ml) 50 mls @ 100 mls/hr IV DAILY [facility] Last Infusion: 06/17/17 11:45 Dose: Infused Mineral Oil (Cavilon) 1 applic TOP BID [facility] Multivitamins (Theragran) 1 tab PO DAILY [facility] Last Admin: 06/17/17 10:05 Dose: Not Given Ondansetron HCl (Zofran Inj) 4 mg IVP Q6HR PRN PRN Reason: Nausea / Vomiting Oxymetazoline HCl (Afrin) 2 sprays SANYA BID [facility] Last Admin: 06/17/17 10:06 Dose: Not Given Polyethylene Glycol (Miralax) 17 gm PO DAILY [facility] Last Admin: 06/17/17 10:06 Dose: Not Given Sodium Chloride (Normal Saline Flush 0.9%) 10 ml IVP PRN PRN PRN Reason: NEEDED PER PROVIDER ORDERS Sodium Chloride (Normal Saline Flush 0.9%) 10 ml IVP 0100,0900,1700 [facility] Last Admin: 06/17/17 10:06 Dose: Not Given Sodium Chloride (Salt Tab) 1 gm PO DAILY [facility] Last Admin: 06/17/17 10:06 Dose: Not Given Temazepam (Restoril) 15 mg PO QPM PRN PRN Reason: Insomnia Terazosin HCl 10 mg PO DAILY 04/21/13 Senna [Senokot] 8.6 mg PO BID PRN 12/04/16 Digoxin 125 mcg PO DAILY 05/21/17 Nitroglycerin 0.4 mg PO Q5M PRN 05/21/17 Aspirin Chewable [[facility] [place] Aspirin] 81 mg PO DAILY 05/24/17 Multivitamin [Multiple Vitamins] 1 each PO DAILY 05/24/17 Loperamide [Imodium] 2 mg PO PRN PRN MDD 6 06/15/17 - Allergies Allergies/Adverse Reactions: Allergies Allergy/AdvReac Type Severity Reaction Status Date / Time No Known Drug Allergies Allergy Verified 05/08/17 16:06 Review of Systems - Constitutional Constitutional: reports: Fatigue, Weakness, Poor appetite, Weight loss - Gastrointestinal Gastrointestinal: reports: Diarrhea (loose stools with incontinence several times a day for two weeks prior to admit; nausea and gagging), Poor appetite, Early satiety - Genitourinary Genitourinary: reports: Incontinence - Musculoskeletal Musculoskeletal: reports: Muscle weakness - Integumentary Integumentary: reports: Rash - Neurological Neurological: reports: General weakness, Memory problems, Other (Reports patient has had episodes of slurred speech, garbled syntax, and some signs of right-sided facial drooping. Prior to admit) - Psychiatric Psychiatric: reports: Depression - Hematologic/Lymphatic Hematologic/Lymphatic: reports: Anemia - All Other Systems All Other Systems: reports: Reviewed and negative - Other Findings Other Findings: ROS provided by Physical Exam - Vital Signs Vital Signs: Vital Signs x48h Temp Pulse Resp BP Pulse Ox 06/17/17 13:00 36.8 C 69 18 74/43 L 96 06/17/17 08:13 39.0 C H 121 H 20 112/56 L 95 06/17/17 06:30 36.5 C - Physical Exam General Appearance: positive: Mild distress, Other (unable to engage with questions; did answer to a few words) Eyes Bilateral: positive: No scleral icterus ENT: positive: Other (would not open; did stick tongue out on request;) Neck: positive: Other (no tenderness noted either side with palpation; no swelling or change) Cardiovascular: positive: Irregular Respiratory: positive: Diminished in bases, Other (Patient presented with several episodes of increased respiratory effort, rapid breathing, denied chest pain during this time. reports this is been happening over the last couple weeks. Patient at risk not only regarding his past [place] but also for cardiotoxicity from his immunotherapy.). negative: Wheezes Abdomen: positive: Soft, Tenderness (appeared to be uncomfortable with palpation ) Skin: positive: Pallor, Dryness Extremities: positive: No pedal edema, Other (in bed not able to observe) Neurologic/Psychiatric: positive: Disoriented to place, Disoriented to time, Weakness, Slurred/abnml speech, Depressed mood/affect, Flat affect Palliative Care - POLST Patient has POLST: Yes POLST Status: DNR, Selective Treatment Pain: Comment (patient denies pain; reports never complains very stoic) - Palliative Care Discussion: Met with , patient unable to participate in conversation. We did discuss goals of care. She has filled out a [facility] with Dr. Ratliff, That is a do not attempt resuscitation as well as selective treatment option. Her understanding is that cancer treatment is palliative in nature, we did discuss weigh benefits and burdens regarding moving forward. He is due to get up Opdivo tomorrow, at this point in time with an active infection this would not be appropriate. This is discussed with her she did have an oncology appointment , did reach out to Dr. Schreiber. She will see him on the floor at this point in time. If patient continues to deteriorate, we did discuss in the continuum of care comfort care and hospice. They are currently in application for Medicaid, and in their is "spend down". She has spoken to her daughter for which she lives with, at this point in time the daughter does not want him to in her home. She feels currently with his current level of care, she would not be able to care for him independently without assistance. We did discuss if patient were to receive IV antibiotics, and showed some improvement, he could be transitioned to a [facility] under skilled care. If he continued to improve then may return home, and continue to weigh the benefits of burdens of moving forward with treatment versus hospice care. We did discuss at imminent end-of-life, hospice team could help transition him to another setting if needed. She reports each she and her have not really talked about the course of his illness, end-of-life, or what his wishes might be. Unfortunately this leaves her with needing to make the decisions. She does want to focus on keeping him comfortable, not prolong suffering, and is willing to wait to see if he responds to antibiotic before making any final decisions. Her perception is he has had steady decline over the last weeks to months but much more acutely in the last couple weeks, and given his current cognitive state, his quality of life has deteriorated. Results - Lab Results Lab results reviewed: Yes Fish Bones: 06/17/17 05:20 06/17/17 05:20 Lab and Imaging Results: Lab Results x24hrs 06/17/17 06/17/17 Range/Units 05:20 05:20 WBC 8.6 (4.8-10.8) x10^3/uL RBC 3.67 L (4.70-6.10) 10^6/uL Hgb 10.9 L (14.0-18.0) g/dL Hct 32.9 L (42.0-52.0) % MCV 89.8 (80.0-94.0) fL MCH 29.8 (27.0-31.0) pg MCHC 33.2 (32.0-36.0) g/dL RDW 21.3 H (12.0-15.0) % Plt Count 327 (130-450) 10^3/uL MPV 8.1 (7.4-11.4) fL Neut # 5.2 (1.5-6.6) 10^3/uL Lymph # 0.9 L (1.5-3.5) 10^3/uL [place] # 0.6 (0.0-1.0) 10^3/uL Eos # 1.8 H (0.0-0.7) 10^3/uL Baso # 0.1 (0.0-0.1) 10^3/uL Absolute Nucleated RBC 0.00 x10^3/uL Nucleated RBC % 0.0 /100WBC Manual Slide Review Indicated Platelet Estimate NORMAL (130-450,000) (NORMAL) Platelet Morphology NORMAL APPEARANCE (NORMAL) RBC Morph Micro Appear 2+ ANISOCYTOSIS (NORMAL) Sodium 134 L (135-145) mmol/L Potassium 3.6 (3.5-5.0) mmol/L Chloride 108 (101-111) mmol/L Carbon Dioxide 20 L (21-32) mmol/L Anion Gap 6.0 (6-13) BUN 11 (6-20) mg/dL Creatinine 1.6 H (0.6-1.2) mg/dL Estimated GFR (MDRD) 43 L (>89) Glucose 97 (70-100) mg/dL Calcium 7.9 L (8.5-10.3) mg/dL Magnesium 2.0 (1.7-2.8) mg/dL Impression and Recommendations - Palliative Care Impression: This is a 71-year-old gentleman with metastatic melanoma involving the lungs, has been on immunotherapy. He has a history of diffuse large B-cell lymphoma as well as atrial fib and recent and STEMI. His presented with a negative rapid decline over the last 2 weeks, with dehydration, decreased intake, weight loss, anorexia, and frequent stooling and functional decline. He has also had an acute deterioration in his neuro status as well Recommendations/Counseling Done: 1. Metastatic melanoma, currently on immunotherapy, on hold. I did consult with Dr. Schreiber given his GI symptoms, she does feel that the severity is not warrented to benefit from steroid treatment. Patient is at risk for cumulative side effects of immunotherapy, including cardiotoxicity, neurotoxicity, colitis , GI toxicity, and adrenal insufficiency. She will follow-up and see him tomorrow and evaluate accordingly. 2. Anorexia. I would recommend even in the context of his current situation to trial patient on dexamethasone 4 mg daily to see if this would stimulate his appetite, and improve his overall feeling of well-being. I would do this in the a.m. Patient has fluctuating mental status, this is impacted his ability to eat and drink, currently he is being supported with fluids. Will need continued encouragement, dietary support, and use of nutritional supplements. 3. Advanced care planning. Patient currently being treated for acute infection , this will extend for a couple weeks per hospitalist. Conversation with did include current goals have placed at [facility] if needs ongoing IV support and or rehab. The patient continues to deteriorate focus would be on comfort care, and possible transition to hospice at appropriate time. Will need support as currently does not feel patient would be able to in her home that she shows with daughter currently. We did discuss the option of [facility] house well as transition to [facility] under her Medicaid benefit. Time Spent: 60 minutes with greater than 50% of this done in counseling coordination of care , anticipatory guidance and follow-up with oncology.
[2017-06-17] MEDS: MIN OIL/DIMETHICON/COCONUT OIL 92 GM TUBE TOP SCH ×2 (14:52→17:59)
[2017-06-17] MEDS: diphenhydrAMINE INJ 50 MG/ML VIAL IVP PRN (17:51)
[2017-06-17] MEDS: CALAMINE/ZINC OXIDE 118 ML BOTTLE TOP PRN (17:59)
[2017-06-18] MEDS: DEXTROSE 5%-0.9% NACL 1,000 ML IV SCH ×2 (00:05→13:35)
[2017-06-18] MEDS: SODIUM CHLORIDE FLUSH 0.9% 10 ML SYRINGE IVP SCH ×3 (00:06→15:43)
[2017-06-18] MEDS: PIPERACILLIN/TAZOBACTAM 4.5 GM in SODIUM CHLORIDE 0.9% MINIBAG 100 ML IV SCH ×4 (03:51→22:07)
[2017-06-18 06:11] LABS: CALCIUM 7.9 mg/dL (8.5-10.3); CREATININE 1.8 mg/dL (0.6-1.2)
[2017-06-18 06:27] LABS: DIGOXIN < 0.2 ng/mL
[2017-06-18] MEDS: FAMOTIDINE 20 MG/50 ML 50 ML IV SCH (08:53)
[2017-06-18] MEDS: ASPIRIN CHEW 81 MG TABLET PO SCH (08:53)
[2017-06-18] MEDS: POLYETHYLENE GLYCOL 3350 17 GM PACKET PO SCH (08:54)
[2017-06-18] MEDS: OXYMETAZOLINE NASAL SPRAY NAS SCH ×2 (08:54→21:52)
[2017-06-18] MEDS: MULTIVITAMIN TABLET PO SCH (08:55)
[2017-06-18] MEDS: SODIUM CHLORIDE 1 GM TABLET PO SCH (08:55)
[2017-06-18] MEDS: MIN OIL/DIMETHICON/COCONUT OIL 92 GM TUBE TOP SCH ×2 (08:55→21:53)
[2017-06-18] MEDS: ACETAMINOPHEN 1,000 MG/100 ML 100 ML IV PRN ×2 (12:06→21:48)
--- NOTE | 2017-06-18 16:31 | CONSULTATION NOTE ---
Palliative Care Follow Up - Referral Referring Provider: Dr. Madie Ratliff Time of Visit: [id number] Referral setting: Hospitalized patient Referral Reason: Metastatic Melanoma/Goals of Care - Information Sources Records reviewed: RN notes reviewed, Previous records reviewed History/Review of Systems obtained from: Family ( Altagracia) Exam limitations: Clinical condition (patient confused; mostly nonverbal unable to engage in exam) - History of Present Illness Update Brief HPI Update: Please for more comprehensive history please see visit note 3 5. This is a 71 -year-old gentleman with metastatic melanoma, with right parotid gland and right lymph nodes status post surgery with positive margins in 11/2016. He does have metastatic lung nodules and was initiated on immunotherapy. He has done fairly poorly particular over the last 2-3 weeks. He was recently also hospitalized for an an STEMI at [facility] in [place]. He is known to have significant heart failure with ejection fraction documented 15-20% per his oncology records. He is being currently treated for a diagnosis of sinus infection and concern in his right neck. He continues to have fluctuating mental status, he is able to express a few sentences at today's visit, but we are going to the movies. He denies any distress, though he has rapid episodes of breathing but denies breathlessness with this. He has not been eating, more than a few bites. He is receiving IV antibiotics with the goal to discharge to [facility] for completion of 14 days. Given his ongoing symptoms of failure to thrive, this may not be realistic. Altagracia, would really like to speak with Dr. Schreiber the oncologist regarding her concerns of his acute decline. She does recognize we are coming to a point where needing to decide about discharge planning and focus on comfort particularly in light of the patient's continued poor nutritional intake Social History - Living Situation Living arrangement: At home Living Situation: With spouse/s.o., With family (Patient and have been providing support and oversight further grandson who is on the autistic spectrum , this is made it complicated in that she does not feel it would be good for him to discharge home. Her daughter has expressed she does not want him dying at her home, and would like to honor this.) Medications/Allergies - Medications Active Medication List: Active Medications Acetaminophen (Tylenol) 650 mg PO Q4HR PRN PRN Reason: Pain or Fever > 38C (100.4F) Last Admin: 03/04/18 01:09 Dose: 650 mg Aspirin (St Jose Aspirin) 81 mg PO DAILY [facility] Last Admin: 06/18/17 08:53 Dose: 81 mg Calamine (Calamine) 1 applic TOP PRN PRN PRN Reason: ITCHING Last Admin: 06/17/17 17:59 Dose: 1 applic Diphenhydramine HCl (Benadryl Inj) 12.5 mg IVP Q8H PRN PRN Reason: Allergy Symptoms Last Admin: 06/17/17 17:51 Dose: 12.5 mg Hydromorphone HCl (Dilaudid Inj Syringe) 0.5 mg IVP Q2H PRN PRN Reason: Pain 8 to 10 Piperacillin Sod/Tazobactam (Sod 4.5 gm/ Sodium Chloride) 100 mls @ 200 mls/hr IV Q6H [facility] Last Admin: 06/18/17 16:08 Dose: 200 mls/hr Acetaminophen (Ofirmev) 100 mls @ 400 mls/hr IV Q6HR PRN PRN Reason: Pain or Fever > 38C (100.4F) Last Infusion: 06/18/17 12:30 Dose: Infused Dextrose/Sodium Chloride (D5ns) 1,000 mls @ 80 mls/hr IV .[id number] [facility] Last Admin: 06/18/17 13:35 Dose: 80 mls/hr Famotidine (Pepcid 20 Mg/50 Ml) 50 mls @ 100 mls/hr IV DAILY [facility] Last Infusion: 06/18/17 10:20 Dose: Infused Mineral Oil (Cavilon) 1 applic TOP BID [facility] Last Admin: 06/18/17 08:55 Dose: 1 applic Multivitamins (Theragran) 1 tab PO DAILY [facility] Last Admin: 06/18/17 08:55 Dose: 1 tab Ondansetron HCl (Zofran Inj) 4 mg IVP Q6HR PRN PRN Reason: Nausea / Vomiting Oxymetazoline HCl (Afrin) 2 sprays SANYA BID [facility] Last Admin: 06/18/17 08:54 Dose: 1 spr Polyethylene Glycol (Miralax) 17 gm PO DAILY [facility] Last Admin: 06/18/17 08:54 Dose: 17 gm Sodium Chloride (Normal Saline Flush 0.9%) 10 ml IVP PRN PRN PRN Reason: NEEDED PER PROVIDER ORDERS Sodium Chloride (Normal Saline Flush 0.9%) 10 ml IVP 0100,0900,1700 [facility] Last Admin: 06/18/17 15:43 Dose: Not Given Sodium Chloride (Salt Tab) 1 gm PO DAILY [facility] Last Admin: 06/18/17 08:55 Dose: 1 gm Temazepam (Restoril) 15 mg PO QPM PRN PRN Reason: Insomnia Terazosin HCl 10 mg PO DAILY 04/21/13 Senna [Senokot] 8.6 mg PO BID PRN 12/04/16 Digoxin 125 mcg PO DAILY 05/21/17 Nitroglycerin 0.4 mg PO Q5M PRN 05/21/17 Aspirin Chewable [St Jose Aspirin] 81 mg PO DAILY 05/24/17 Multivitamin [Multiple Vitamins] 1 each PO DAILY 05/24/17 Loperamide [Imodium] 2 mg PO PRN PRN MDD 6 06/15/17 - Allergies Allergies/Adverse Reactions: Allergies Allergy/AdvReac Type Severity Reaction Status Date / Time No Known Drug Allergies Allergy Verified 05/08/17 16:06 Review of Systems - Constitutional Constitutional: reports: Fatigue, Poor appetite, Weight loss - Ears, Nose & Throat Ears, Nose & Throat: reports: Dry mouth, Other (poor dentition) - Gastrointestinal Gastrointestinal: reports: Abdominal distention - Genitourinary Genitourinary: reports: Other (newell) - Musculoskeletal Musculoskeletal: reports: Stiffness, Other (has been bedbound) - Integumentary Integumentary: reports: Rash (diffuse on upper forearms), Dryness - Neurological Neurological: reports: General weakness, Memory problems (acute over the last week;), Slurred speech - All Other Systems All Other Systems: reports: Reviewed and negative Physical Exam - Vital Signs Vital Signs: Vital Signs x48h Temp Pulse Resp BP Pulse Ox 06/18/17 13:00 37.5 C 95 20 99/39 L 94 06/18/17 08:33 37.9 C H 96 18 108/58 L 100 - Physical Exam General Appearance: positive: No acute distress Eyes Bilateral: positive: No scleral icterus ENT: positive: Dry mucous membranes Neck: positive: Trachea midline, Other (no tenderness or swelling) Cardiovascular: positive: Regular rate & rhythm Respiratory: positive: Diminished in bases, Other (irregular breathing pattern) Abdomen: positive: Soft, Nml bowel sounds, Tenderness, Distended Skin: positive: Dryness Extremities: positive: No pedal edema Neurologic/Psychiatric: positive: Disoriented to place, Disoriented to time, Weakness, Slurred/abnml speech Palliative Care - POLST Patient has POLST: Yes POLST Status: DNR, Selective Treatment Pain: No pain - Palliative Care Discussion: at bedside, she to proceed as patient is not improving. She is feeling somewhat distressed as not able to take patient home, and if does not meet criteria for [facility] unless he starts eating and drinking. She is aware prognosis is most Likely days to weeks if he were not to receive IV support and did not initiate oral intake. She is on a [employer] program but has a significant spend down, and would not be able to pay for a [facility] stay. She did give me permission to contact [facility] to see if this was an option if he does not meet criteria to be discharged to [facility]. Did explore further with her the ability to take him home, she has grandchild who is 11 is special needs, is in agreement with her daughter would be too disruptive. Did discuss the role of hospice across different settings. Is wondering about the role of the immunotherapy in his decline, she had found an ad in the "[employer]", though does understand it is a little bit of the chicken or the egg question, and that patient is most likely to continue to decline. She feels she has some questions for Dr. Schreiber that would be helpful for her coming to acceptance. Results - Lab Results Lab results reviewed: Yes Fish Bones: 06/17/17 05:20 06/18/17 05:43 Lab and Imaging Results: Lab Results x24hrs 06/18/17 06/18/17 Range/Units 05:43 05:43 Sodium 137 (135-145) mmol/L Potassium 3.4 L (3.5-5.0) mmol/L Chloride 111 (101-111) mmol/L Carbon Dioxide 19 L (21-32) mmol/L Anion Gap 7.0 (6-13) BUN 13 (6-20) mg/dL Creatinine 1.8 H (0.6-1.2) mg/dL Estimated GFR (MDRD) 37 L (>89) Glucose 98 (70-100) mg/dL Calcium 7.9 L (8.5-10.3) mg/dL Last Dose Date UNKNOWN Digoxin < 0.2 ng/mL Impression and Recommendations - Palliative Care Impression: This is a 71-year-old gentleman with metastatic melanoma involving the lungs, has been on immunotherapy. He does have a history of diffuse large B-cell lymphoma, atrial fib, and recent N STEMI. He has presented with a rapid decline over the last couple weeks, with dehydration, decreased intake, anorexia , and now with significant cognitive changes. Patient is continuing not to be able to support himself with oral intake, has not shown much improvement, and remains neurologically impacted Recommendations/Counseling Done: 1.Metastatic melanoma, currently immunotherapy on hold. Patient does appear to be a failure to thrive, is not recovering as far as neurologically or ability to sustain nutrition. Discussion included transitioning to comfort measures and hospice. Multiple barriers include finances, placement, and patient's increased care needs. 2. Advanced care planning. I do have a call out to [facility] to see if this is an option. Patient does have [employer] application on file, will need to follow- up as far as social work regarding cost to family if does transition to [facility] without skilled care. Explored taking home, does not feel this is a option given her family situation. Patient unable to participate in decision making with current neuro decline. Time Spent: 30 minutes with greater than 50% of this done in counseling regarding advanced care planning, exploring barriers for placement, and anticipatory guidance if patient continues to deteriorate
--- NOTE | 2017-06-18 17:51 | PROVIDER PROGRESS NOTE ---
Subjective - Prog Note Date Prog Note Date: 06/18/17 Prog Note Time: 17:51 - Subjective Pt reports feeling: Worse Subjective: he waxes and wanes with mental status. pushed food out of mouth after 2 chews. not eating much or drinking. Lyric Cruz has seen him for Palliative Care and Dr. Mirtha Schreiber has seen him as well. Dr. Schreiber would like MRI of head to eval [facility]. Current Medications - Current Medications Current Medications: Active Medications Acetaminophen (Tylenol) 650 mg PO Q4HR PRN PRN Reason: Pain or Fever > 38C (100.4F) Last Admin: 06/16/17 01:09 Dose: 650 mg Aspirin (St Jose Aspirin) 81 mg PO DAILY [facility] Last Admin: 06/18/17 08:53 Dose: 81 mg Calamine (Calamine) 1 applic TOP PRN PRN PRN Reason: ITCHING Last Admin: 06/17/17 17:59 Dose: 1 applic Diphenhydramine HCl (Benadryl Inj) 12.5 mg IVP Q8H PRN PRN Reason: Allergy Symptoms Last Admin: 06/17/17 17:51 Dose: 12.5 mg Hydromorphone HCl (Dilaudid Inj Syringe) 0.5 mg IVP Q2H PRN PRN Reason: Pain 8 to 10 Piperacillin Sod/Tazobactam (Sod 4.5 gm/ Sodium Chloride) 100 mls @ 200 mls/hr IV Q6H [facility] Last Infusion: 06/18/17 16:40 Dose: Infused Acetaminophen (Ofirmev) 100 mls @ 400 mls/hr IV Q6HR PRN PRN Reason: Pain or Fever > 38C (100.4F) Last Infusion: 06/18/17 12:30 Dose: Infused Dextrose/Sodium Chloride (D5ns) 1,000 mls @ 80 mls/hr IV .[id number] [facility] Last Admin: 06/18/17 13:35 Dose: 80 mls/hr Famotidine (Pepcid 20 Mg/50 Ml) 50 mls @ 100 mls/hr IV DAILY [facility] Last Infusion: 06/18/17 10:20 Dose: Infused Mineral Oil (Cavilon) 1 applic TOP BID [facility] Last Admin: 06/18/17 08:55 Dose: 1 applic Multivitamins (Theragran) 1 tab PO DAILY [facility] Last Admin: 06/18/17 08:55 Dose: 1 tab Ondansetron HCl (Zofran Inj) 4 mg IVP Q6HR PRN PRN Reason: Nausea / Vomiting Oxymetazoline HCl (Afrin) 2 sprays SANYA BID [facility] Last Admin: 06/18/17 08:54 Dose: 1 spr Polyethylene Glycol (Miralax) 17 gm PO DAILY [facility] Last Admin: 06/18/17 08:54 Dose: 17 gm Sodium Chloride (Normal Saline Flush 0.9%) 10 ml IVP PRN PRN PRN Reason: NEEDED PER PROVIDER ORDERS Sodium Chloride (Normal Saline Flush 0.9%) 10 ml IVP 0100,0900,1700 [facility] Last Admin: 06/18/17 15:43 Dose: Not Given Sodium Chloride (Salt Tab) 1 gm PO DAILY [facility] Last Admin: 06/18/17 08:55 Dose: 1 gm Temazepam (Restoril) 15 mg PO QPM PRN PRN Reason: Insomnia Terazosin HCl 10 mg PO DAILY 04/21/13 Senna [Senokot] 8.6 mg PO BID PRN 12/04/16 Digoxin 125 mcg PO DAILY 05/21/17 Nitroglycerin 0.4 mg PO Q5M PRN 05/21/17 Aspirin Chewable [St Jose Aspirin] 81 mg PO DAILY 05/24/17 Multivitamin [Multiple Vitamins] 1 each PO DAILY 05/24/17 Loperamide [Imodium] 2 mg PO PRN PRN MDD 6 06/15/17 Objective - Vital Signs/Intake & Output Reviewed Vital Signs: Yes Vital Signs: Vital Signs x48h Temp Pulse Resp BP Pulse Ox 06/18/17 17:27 88 91/64 06/18/17 16:49 36.9 C 68 20 91/38 L 100 06/18/17 13:00 37.5 C 95 20 99/39 L 94 Intake & Output: Intake & Output 06/15/17 06/16/17 06/17/17 06/18/17 23:59 23:59 23:59 23:59 Intake Total 2109.333 1480 2750.000 1450 Output Total 700 650 850 525 Balance 1409.286 574 3756.000 925 - Objective General Appearance: positive: No acute distress, Lethargic Eyes Bilateral: positive: PERRL - Lab Results Fish Bones: 06/17/17 05:20 06/18/17 05:43 Other Labs: Lab Results x24hrs 06/18/17 06/18/17 Range/Units 05:43 05:43 Sodium 137 (135-145) mmol/L Potassium 3.4 L (3.5-5.0) mmol/L Chloride 111 (101-111) mmol/L Carbon Dioxide 19 L (21-32) mmol/L Anion Gap 7.0 (6-13) BUN 13 (6-20) mg/dL Creatinine 1.8 H (0.6-1.2) mg/dL Estimated GFR (MDRD) 37 L (>89) Glucose 98 (70-100) mg/dL Calcium 7.9 L (8.5-10.3) mg/dL Last Dose Date UNKNOWN Digoxin < 0.2 ng/mL Assessment/Plan - Problem List (1) Cellulitis of neck Impression: 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 (2) Sinusitis Qualifiers: Sinusitis location: maxillary Assessment/Plan: IV Zosyn will cover this bacteria as well. Continue Afrin nasal spray for 3-4 days. (3) Dehydration Assessment/Plan: Crat increased to 1.6 yeaterday and 1.8 today. Will increase fluids from 40-80 cc/hr. Nutrition consult pending regarding type of diet. And she said he has cognitive dyspahgia with defensive spitting out of food. Comfort intake only is her recommendation. If do feed him, keep him upright. (4) Hyponatremia Assessment/Plan: Improving every day. Continue to follow BMP. (5) Altered mental status Assessment/Plan: Less responsive Yesterday and today and too weak to feed himself again. His alertness waxes and wanes. No CVA, less dehydrated, Na is improving. Possibly worse today from spiking a fever. Palliative Care, Lyric Cruz NP is here to do consult yesterday and today. (6) Metastatic melanoma Assessment/Plan: No evidence of mets on brain CT or neck imaging done yesterday, but he has known metastatic disease. Will order MRI of brain now.
[2017-06-19] MEDS: SODIUM CHLORIDE FLUSH 0.9% 10 ML SYRINGE IVP SCH ×4 (00:57→23:53)
[2017-06-19] MEDS: DEXTROSE 5%-0.9% NACL 1,000 ML IV SCH ×3 (03:01→23:52)
[2017-06-19] MEDS: PIPERACILLIN/TAZOBACTAM 4.5 GM in SODIUM CHLORIDE 0.9% MINIBAG 100 ML IV SCH ×4 (04:03→22:39)
[2017-06-19] MEDS ORDERED: SODIUM CHLORIDE 0.9% 500 ML IV ONE (08:00)
[2017-06-19] MEDS: ASPIRIN CHEW 81 MG TABLET PO SCH (08:24)
[2017-06-19] MEDS: MULTIVITAMIN TABLET PO SCH (08:25)
[2017-06-19] MEDS: POLYETHYLENE GLYCOL 3350 17 GM PACKET PO SCH (08:25)
[2017-06-19] MEDS: SODIUM CHLORIDE 1 GM TABLET PO SCH (08:25)
[2017-06-19 08:49] LABS: CALCIUM 7.8 mg/dL (8.5-10.3); CREATININE 1.7 mg/dL (0.6-1.2)
[2017-06-19] MEDS ORDERED: FUROSEMIDE 40 MG/4 ML VIAL IVP SCH (09:08)
[2017-06-19] MEDS: FAMOTIDINE 20 MG/50 ML 50 ML IV SCH (09:14)
[2017-06-19] MEDS ORDERED: FUROSEMIDE 40 MG/4 ML VIAL ONE (09:20)
[2017-06-19] MEDS ORDERED: GADOBUTROL 7.5 MMOL/7.5 ML VIAL ONE (10:14)
[2017-06-19] MEDS ORDERED: LORazepam 2 MG/ML VIAL IVP STA (10:38)
[2017-06-19] MEDS ORDERED: GADOBUTROL 7.5 MMOL/7.5 ML VIAL IVP ONE (11:35)
[2017-06-19] MEDS: OXYMETAZOLINE NASAL SPRAY NAS SCH ×2 (11:53→21:15)
[2017-06-19] MEDS: MIN OIL/DIMETHICON/COCONUT OIL 92 GM TUBE TOP SCH ×2 (11:53→21:16)
--- NOTE | 2017-06-19 12:22 | MRI Preliminary Report ---
Exam: MRI BRAIN W/WO IMPRESSION: 1. No acute intracranial abnormality. No acute infarct, mass, hemorrhage, or abnormal enhancement. 2. Moderate diffuse atrophy. There is consequent enlargement of the ventricular system, sulci, and ci sterns. 3. Scattered paranasal sinus mucosal thickening. Partial opacification and layering fluid level is se en in the right maxillary antrum. [facility] SITE ID: [id number]
[2017-06-19 12:26] LABS: ALBUMIN 2.3 g/dL (3.2-5.5); BILIRUBIN,DIRECT 0.3 mg/dL (0.1-0.5); BILIRUBIN,TOTAL 1.2 mg/dL (0.2-1.0); TOTAL PROTEIN 4.6 g/dL (6.7-8.2)
--- NOTE | 2017-06-19 12:27 | MRI Report ---
EXAM: MRI BRAIN WITHOUT AND WITH CONTRAST EXAM DATE: 06/19/2017 11:50 AM. CLINICAL HISTORY: New altered level of consciousness in patient with stage IV melanoma. COMPARISON: CT scan of the head 06/15/2017. MRI of the brain 09/18/2016. TECHNIQUE: Multiplanar, multisequence T1-weighted and fluid-sensitive MR sequences of the brain were performed. Sequences optimized for routine evaluation. Other: None. IV Contrast: 4 mL Gadavist. FINDINGS: (Study is limited by patient motion artifact.) Brain Volume: Age advanced volume loss is present with mild diffuse atrophy. Parenchyma: No acute hemorrhage, mass, or infarct. Minimal confluent periventricular and scattered pu nctate deep white matter T2 and FLAIR bright signal is seen in the cerebral hemispheres. No cortical signal abnormality. No abnormal enhancement. Ventricles/Cisterns: Prominence to the ventricular system, sulci, and cisterns is noted. No hydroceph alus. No abnormal extra-axial fluid collection or hemorrhage. Orbits: Symmetric and unremarkable. Sella Turcica: The pituitary gland, cavernous sinuses, suprasellar cistern and optic chiasm are unrem arkable. IAC: Symmetric and unremarkable. Vasculature: Normal signal flow void is seen in the major arterial structures at the skull base. The dural sinuses are patent and enhance normally. Sinuses: Partial opacification of the right maxillary antrum is seen with layering fluid level. Polyp oid mucosal thickening is seen inferiorly in the left maxillary sinus. Mucosal thickening is seen inv olving frontal and ethmoid sinuses, greater on the left. Opacification is seen involving the inferior left mastoid air cells. Bones: No focal pathologic appearing marrow signal changes. Other: None. IMPRESSION: 1. No acute intracranial abnormality. No acute infarct, mass, hemorrhage, or abnormal enhancement. 2. Moderate diffuse atrophy. There is consequent enlargement of the ventricular system, sulci, and ci sterns. 3. Scattered paranasal sinus mucosal thickening. Partial opacification and layering fluid level is se en in the right maxillary antrum. [facility] Referring Provider Line: [phone] SITE ID: [id number]
[2017-06-19] MEDS: MORPHINE SOL 10 MG/0.5 ML SYRINGE PO PRN (14:24)
--- NOTE | 2017-06-19 14:45 | PROVIDER PROGRESS NOTE ---
Subjective - Prog Note Date Prog Note Date: 06/19/17 Prog Note Time: 14:43 - Subjective Pt reports feeling: Worse Subjective: his is at the bedside. Seen by Dr. Schreiber and Lyric Cruz BARKEEPER yesterday and Dr. Schreiber requested MRI brain to make sure mets to brain not cause of ALOC. Between yesterday and today, he is worse. He was intermittentl lucid yesterday and none at all today. grunting, moaning, eyes are open and he looks at you when you call his name or touch him, but otherwise nonverbal. This am he was hypotensive. Last T max spike was 08:30 am on 3/6 to 37.9, and afebrile since. So I gave him a fluid bolus and BP did come up but then more and more tachypneic, Fredy stoking and I gave him lasix w excellent brisk urine output and BP in 130's/110's. Pulse has been controlled. He's not sharing any c/o pain, sob w me. Stares at me but not able to answer. Current Medications - Current Medications Current Medications: Active Medications Acetaminophen (Tylenol) 650 mg PO Q4HR PRN PRN Reason: Pain or Fever > 38C (100.4F) Last Admin: 06/16/17 01:09 Dose: 650 mg Aspirin (St Jose Aspirin) 81 mg PO DAILY [facility] Last Admin: 06/19/17 08:24 Dose: Not Given Calamine (Calamine) 1 applic TOP PRN PRN PRN Reason: ITCHING Last Admin: 06/17/17 17:59 Dose: 1 applic Diphenhydramine HCl (Benadryl Inj) 12.5 mg IVP Q8H PRN PRN Reason: Allergy Symptoms Last Admin: 06/17/17 17:51 Dose: 12.5 mg Hydromorphone HCl (Dilaudid Inj Syringe) 0.5 mg IVP Q2H PRN PRN Reason: Pain 8 to 10 Piperacillin Sod/Tazobactam (Sod 4.5 gm/ Sodium Chloride) 100 mls @ 200 mls/hr IV Q6H [facility] Last Infusion: 06/19/17 13:55 Dose: Infused Acetaminophen (Ofirmev) 100 mls @ 400 mls/hr IV Q6HR PRN PRN Reason: Pain or Fever > 38C (100.4F) Last Infusion: 06/18/17 22:05 Dose: Infused Dextrose/Sodium Chloride (D5ns) 1,000 mls @ 80 mls/hr IV .[id number] [facility] Last Infusion: 06/19/17 11:53 Dose: 0 mls/hr Famotidine (Pepcid 20 Mg/50 Ml) 50 mls @ 100 mls/hr IV DAILY [facility] Last Infusion: 06/19/17 09:45 Dose: Infused Mineral Oil (Cavilon) 1 applic TOP BID [facility] Last Admin: 06/19/17 11:53 Dose: 1 applic Morphine Sulfate (Roxanol) 4 mg PO Q2HR PRN PRN Reason: PAIN Last Admin: 06/19/17 14:24 Dose: 4 mg Multivitamins (Theragran) 1 tab PO DAILY [facility] Last Admin: 06/19/17 08:25 Dose: Not Given Ondansetron HCl (Zofran Inj) 4 mg IVP Q6HR PRN PRN Reason: Nausea / Vomiting Oxymetazoline HCl (Afrin) 2 sprays SANYA BID [facility] Last Admin: 06/19/17 11:53 Dose: 1 spr Polyethylene Glycol (Miralax) 17 gm PO DAILY [facility] Last Admin: 06/19/17 08:25 Dose: Not Given Sodium Chloride (Normal Saline Flush 0.9%) 10 ml IVP PRN PRN PRN Reason: NEEDED PER PROVIDER ORDERS Sodium Chloride (Normal Saline Flush 0.9%) 10 ml IVP 0100,0900,1700 [facility] Last Admin: 06/19/17 08:25 Dose: Not Given Sodium Chloride (Salt Tab) 1 gm PO DAILY [facility] Last Admin: 06/19/17 08:25 Dose: Not Given Temazepam (Restoril) 15 mg PO QPM PRN PRN Reason: Insomnia Terazosin HCl 10 mg PO DAILY 04/21/13 Senna [Senokot] 8.6 mg PO BID PRN 12/04/16 Digoxin 125 mcg PO DAILY 05/21/17 Nitroglycerin 0.4 mg PO Q5M PRN 05/21/17 Aspirin Chewable [St Jose Aspirin] 81 mg PO DAILY 05/24/17 Multivitamin [Multiple Vitamins] 1 each PO DAILY 05/24/17 Loperamide [Imodium] 2 mg PO PRN PRN MDD 6 06/15/17 Objective - Vital Signs/Intake & Output Reviewed Vital Signs: Yes Vital Signs: Vital Signs x48h Temp Pulse Resp BP Pulse Ox 06/19/17 12:54 36.8 C 87 33 H 133/119 H 96 06/19/17 09:00 103 H 157/110 H 06/19/17 07:30 36.2 C L 77 27 H 103/81 H 95 Intake & Output: Intake & Output 06/16/17 06/17/17 06/18/17 06/19/17 23:59 23:59 23:59 23:59 Intake Total 1480 2750.000 2314 1639.334 Output Total 650 688 242 5850 Balance 830 2039.678 4442 -535.666 - Objective General Appearance: positive: Alert (eyes open, and he follows me as I walk in room several times today.), Moderate distress (as manifested by grunting, moaning, tachypnea) Eyes Bilateral: positive: PERRL, EOMI, Other (muddy sclera) ENT: positive: Other (clenching teeth and spits out food or even the roxanol drops I've ordered for comfort) Neck: positive: No JVD, Other (right neck soft tissue fullness, firm, immobile.) . negative: Stiff neck, Carotid bruit Respiratory: positive: Chest non-tender, Other (he's had apnea to 10 seconds after Ativan for MRI head, fredy duff respiration, tachypnea. all shallow fast breathing.). negative: Wheezes, Rales, Rhonchi Cardiovascular: positive: Irregularly irregular, Tachycardia (at times). negative: Systolic murmur, Gallop/S4, Friction rub Abdomen: positive: Non-tender, Nml bowel sounds, Other (some distension but not tympanitic,). negative: Guarding, Rebound Skin: positive: Warm, Dry Extremities: positive: Other (right knee flexed and he won't extend. warm and pink joint.) Neurologic/Psychiatric: positive: CN's nml (2-12), Disoriented to person, Disoriented to place, Disoriented to time, Slurred/abnml speech. negative: Motor nml (generalized weakness, nonfocal) - Lab Results Fish Bones: 06/17/17 05:20 06/19/17 08:30 Other Labs: Lab Results x24hrs 06/19/17 06/19/17 Range/Units 08:30 08:30 Sodium 139 (135-145) mmol/L Potassium 3.4 L (3.5-5.0) mmol/L Chloride 113 H (101-111) mmol/L Carbon Dioxide 19 L (21-32) mmol/L Anion Gap 7.0 (6-13) BUN 12 (6-20) mg/dL Creatinine 1.7 H (0.6-1.2) mg/dL Estimated GFR (MDRD) 40 L (>89) Glucose 103 H (70-100) mg/dL Calcium 7.8 L (8.5-10.3) mg/dL Total Bilirubin 1.2 H (0.2-1.0) mg/dL Direct Bilirubin 0.3 (0.1-0.5) mg/dL AST 36 (10-42) IU/L ALT 19 (10-60) IU/L Alkaline Phosphatase 44 (42-121) IU/L Total Protein 4.6 L (6.7-8.2) g/dL Albumin 2.3 L (3.2-5.5) g/dL Globulin 2.3 (2.1-4.2) g/dL Assessment/Plan - Problem List (1) Altered mental status Impression: Less responsive on 06/17 and then a few words on 06/18 and today he is nonverbal. His alertness waxes and wanes. DD: 1. Infection. I have reviewed his films and no discrete neck abcess. He did have sinusitis. no pneumonia Does have tender, warm, slightly pink right knee and he won't extend it today. blood cultures have been negative. no UTI and abd nontender. His bili is 1.2 but no RUQ pain w palpation. 2. Drugs. Chemo a possibility but too far out from last dose not on benzo's here. I have started pain meds but only today. His change occurred before that On restoril prn. Doubt zosyn would do this 3. Cardiac w NE. His EKG is negative. Troponin negative. Did have a recent NE 4. Stroke/mets to brain. MRI w and w0 genevieve is negative today. Dr. Schreiber contacted and she now feels his metastatic melanoma is not the cause of this problem. 5. Metabolic/electrolyte derangment is not severe 6. Slow in onset and no chest pain, or hypoxia so I doubt PE. I am at a loss and have shared that with his . Add vancomycin, flagyl to broaden coverage check knee film He may need an LP. check lactic acid since C02 is 19 today. 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 None since 06/18. Blood cultures neg from 06/14 Pt on IV Zosyn. Add vancomycin and gent. (3) Sinusitis Qualifiers: Sinusitis location: maxillary Assessment/Plan: IV Zosyn will cover this bacteria as well. Continue Afrin nasal spray for 3-4 days. (4) Dehydration Assessment/Plan: Crat increased to 1.6 on 06/17 then 1.9 yesterday. Today 1.8. Will increase fluids from 40-80 cc/hr. He had some hypotension so I gave a fluid bolus but it made him more sob so I gave lasix and good output. Nutrition consult pending regarding type of diet. And she said he has cognitive dyspahgia with defensive spitting out of food. Comfort intake only is her recommendation. If do feed him, keep him upright. (5) Hyponatremia and Hypokalemia Assessment/Plan: NA Improving every day. Will supplement K today. Continue to follow BMP. (6) Metastatic melanoma Assessment/Plan: No evidence of mets on brain CT or neck imaging, but he has known metastatic disease to lungs. MRI of head today negative for mets.
[2017-06-19] MEDS: ACETAMINOPHEN 1,000 MG/100 ML 100 ML IV PRN (15:51)
[2017-06-19] MEDS: POTASSIUM CHLOR 10 MEQ/100 ML 10 MEQ/100 ML BAG IV SCH ×4 (16:48→21:39)
[2017-06-19] MEDS: SODIUM CHLORIDE FLUSH 0.9% 10 ML SYRINGE IVP PRN (17:57)
[2017-06-19] MEDS ORDERED: VANCOMYCIN PER PHARMACY 1,000 GM in SODIUM CHLORIDE 0.9% 250 ML IV SCH (18:00)
[2017-06-19] MEDS: metroNIDAZOLE 500 MG/100 ML 500 MG/100 ML BAG IV SCH ×2 (18:58→23:50)
--- NOTE | 2017-06-19 19:49 | CONSULTATION NOTE ---
Palliative Care Follow Up - Referral Referring Provider: Dr. Madie Ratliff Time of Visit: [id number] Referral setting: Hospitalized patient Referral Reason: Metastatic Melanoma/Failure to thrive/goals of care - Information Sources Records reviewed: RN notes reviewed, Previous records reviewed Exam limitations: Clinical condition - History of Present Illness Update Brief HPI Update: Please see HPI of 06-17-17. This is a 71-year-old gentleman with metastatic melanoma, his original melanoma diagnosis was in his ear status post surgical release vision with curative intent. He did have a reoccurrence involving the right parotid gland and right neck lymph nodes status post surgery with positive margins [id number]. And his workup was found to have metastatic nodules to his lungs, he was initiated on immunotherapy and his most recent CT scan did show progression of disease 05-14-2007 with the largest nodule at the right lung base at 4.1 cm. Patient has recently been hospitalized at [facility] for an N STEMI, and with this received multiple cardiac meds which resulted in hypotension and multiple episodes and concerns regarding hypotension and dehydration. He did receive his immunotherapy 2 weeks ago, at this point in time he did have some ongoing GI side effects including anorexia, loose stools, and ongoing progressive cognitive changes. As result of this he was hospitalized on 06-14-2017 and has continued to decline despite treatment of sinusitis and presumed right neck infection. He continues to have fluctuating mental status, encephalopathic symptoms with rapid breathing, altered Levels of consciousness. He has been mostly bedbound, refusing or unable to participate in eating, and has had signs of distress though unable to delineate if this is pain and or agitation. He did get an MRI of the brain this morning, with concern for possible metastatic disease, this did rule out negative. He is continued to receive IV fluids and recently now changing of his antibiotics.This is made defining goals of care very complicated, though acknowledges the seriousness of his illness and treatment was palliative in nature, she is quite perplexed as far as his rapid and current decline. Social History - Living Situation Living arrangement: At home Living Situation: With spouse/s.o., With family (They live with her daughter, who has son with special needs. They came to [facility] to live with their daughter's family and provide support/caregiving.) Medications/Allergies - Medications Active Medication List: Active Medications Acetaminophen (Tylenol) 650 mg PO Q4HR PRN PRN Reason: Pain or Fever > 38C (100.4F) Last Admin: 06/16/17 01:09 Dose: 650 mg Aspirin (St Jose Aspirin) 81 mg PO DAILY [facility] Last Admin: 06/19/17 08:24 Dose: Not Given Calamine (Calamine) 1 applic TOP PRN PRN PRN Reason: ITCHING Last Admin: 06/17/17 17:59 Dose: 1 applic Diphenhydramine HCl (Benadryl Inj) 12.5 mg IVP Q8H PRN PRN Reason: Allergy Symptoms Last Admin: 06/17/17 17:51 Dose: 12.5 mg Hydromorphone HCl (Dilaudid Inj Syringe) 0.5 mg IVP Q2H PRN PRN Reason: Pain 8 to 10 Piperacillin Sod/Tazobactam (Sod 4.5 gm/ Sodium Chloride) 100 mls @ 200 mls/hr IV Q6H [facility] Last Infusion: 06/19/17 16:48 Dose: Infused Acetaminophen (Ofirmev) 100 mls @ 400 mls/hr IV Q6HR PRN PRN Reason: Pain or Fever > 38C (100.4F) Last Infusion: 06/19/17 16:10 Dose: Infused Dextrose/Sodium Chloride (D5ns) 1,000 mls @ 80 mls/hr IV .[id number] [facility] Last Infusion: 06/19/17 15:57 Dose: 0 mls/hr Famotidine (Pepcid 20 Mg/50 Ml) 50 mls @ 100 mls/hr IV DAILY [facility] Last Infusion: 06/19/17 09:45 Dose: Infused Potassium Chloride (Potassium Chloride) 10 meq in 100 mls @ 100 mls/hr IV Q1H [facility] Stop: 06/19/17 19:59 Last Infusion: 06/19/17 18:58 Dose: Infused Metronidazole (Flagyl 500 Mg/100 Ml) 500 mg in 100 mls @ 100 mls/hr IV Q6HR [facility] Last Admin: 06/19/17 18:58 Dose: 100 mls/hr Vancomycin/Sodium Chloride (Vanco/Sod Chloride 0.9%) 1.5 gm in 500 mls @ 250 mls/hr IV Q24H [facility] Mineral Oil (Cavilon) 1 applic TOP BID [facility] Last Admin: 06/19/17 11:53 Dose: 1 applic Morphine Sulfate (Roxanol) 4 mg PO Q2HR PRN PRN Reason: PAIN Last Admin: 06/19/17 14:24 Dose: 4 mg Multivitamins (Theragran) 1 tab PO DAILY [facility] Last Admin: 06/19/17 08:25 Dose: Not Given Ondansetron HCl (Zofran Inj) 4 mg IVP Q6HR PRN PRN Reason: Nausea / Vomiting Oxymetazoline HCl (Afrin) 2 sprays SANYA BID [facility] Last Admin: 06/19/17 11:53 Dose: 1 spr Polyethylene Glycol (Miralax) 17 gm PO DAILY [facility] Last Admin: 06/19/17 08:25 Dose: Not Given Sodium Chloride (Normal Saline Flush 0.9%) 10 ml IVP PRN PRN PRN Reason: NEEDED PER PROVIDER ORDERS Last Admin: 06/19/17 17:57 Dose: 10 ml Sodium Chloride (Normal Saline Flush 0.9%) 10 ml IVP 0100,0900,1700 [facility] Last Admin: 06/19/17 17:57 Dose: 10 ml Sodium Chloride (Salt Tab) 1 gm PO DAILY [facility] Last Admin: 06/19/17 08:25 Dose: Not Given Temazepam (Restoril) 15 mg PO QPM PRN PRN Reason: Insomnia Terazosin HCl 10 mg PO DAILY 04/21/13 Senna [Senokot] 8.6 mg PO BID PRN 12/04/16 Digoxin 125 mcg PO DAILY 05/21/17 Nitroglycerin 0.4 mg PO Q5M PRN 05/21/17 Aspirin Chewable [St Jose Aspirin] 81 mg PO DAILY 05/24/17 Multivitamin [Multiple Vitamins] 1 each PO DAILY 05/24/17 Loperamide [Imodium] 2 mg PO PRN PRN MDD 6 06/15/17 - Allergies Allergies/Adverse Reactions: Allergies Allergy/AdvReac Type Severity Reaction Status Date / Time No Known Drug Allergies Allergy Verified 05/08/17 16:06 Review of Systems - Constitutional Constitutional: reports: Weight loss - Gastrointestinal Gastrointestinal: reports: Poor appetite - Musculoskeletal Musculoskeletal: reports: Other (has been bedbound since hospitalization) - Psychiatric Psychiatric: reports: Aggitation (intermittent; fluctuating awareness; confusion ;) Physical Exam - Vital Signs Vital Signs: Vital Signs x48h Temp Pulse Resp BP Pulse Ox 06/19/17 15:45 37.2 C 90 16 106/73 100 06/19/17 12:54 36.8 C 87 33 H 133/119 H 96 - Physical Exam General Appearance: positive: Moderate distress, Anxious, Lethargic Eyes Bilateral: positive: Other (difficulty focusing; darting) ENT: positive: Dry mucous membranes Neck: positive: Trachea midline Cardiovascular: positive: Regular rate & rhythm Respiratory: positive: Diminished in bases Abdomen: positive: Soft, Nml bowel sounds, Tenderness, Distended Skin: positive: Pallor, Dryness Extremities: positive: No pedal edema Neurologic/Psychiatric: positive: Disoriented to place, Disoriented to time, Weakness, Slurred/abnml speech, Unintelligible speech, Flat affect Palliative Care - POLST Patient has POLST: Yes POLST Status: DNR, Selective Treatment Pain: Comment (Patient at one point was thought to have right knee pain, patient does not present with any effusion or tenderness at time of exam. He does have some tenderness across his abdomen, he is unable to describe or locate his pain in trying to elicit any kind of answer during his wakeful periods) - Palliative Care Discussion: Family meeting with Altagracia, patient unable to participate that was in the room. We discussed just her feelings of concern and distressed regarding her 's continued decline. In the context of the 's goal, to focus on comfort, we did discuss transitioning to hospice. This is been a huge stressor for her as they are financially stressed, she does have a spend down for her [place], and this is gotten complicated as far as where she is at in that process. Returning back to the daughter's home, is not an option at this point in time. There is concern for the son by the daughter, and the mother is in support of honoring her daughter's wishes. She is in agreement to transition to hospice, we did explore [facility], I did speak with the director and it may be an option. She does understand that she will need to be interviewed, as well as feel comfortable with this option. I did speak with Tatum Leavitt at [facility], she will come tomorrow afternoon. We did discuss the role of hospice, transitioning to end-of-life care, and acknowledged the difficulty of this in the face of the many unknowns in the complexity of the current situation. In the context of patient were to improve, he would still be dependent, and most likely needing to face this decision regarding end-of-life in the near future as well given the seriousness of his cancer. Results - Lab Results Lab results reviewed: Yes Fish Bones: 06/17/17 05:20 06/19/17 08:30 Lab and Imaging Results: Lab Results x24hrs 06/19/17 06/19/17 06/19/17 Range/Units 17:50 17:50 14:21 Sodium (135-145) mmol/L Potassium (3.5-5.0) mmol/L Chloride (101-111) mmol/L Carbon Dioxide (21-32) mmol/L Anion Gap (6-13) BUN (6-20) mg/dL Creatinine (0.6-1.2) mg/dL Estimated GFR (MDRD) (>89) Glucose (70-100) mg/dL Lactic Acid 1.3 (0.5-2.2) mmol/L Calcium (8.5-10.3) mg/dL Total Bilirubin (0.2-1.0) mg/dL Direct Bilirubin (0.1-0.5) mg/dL AST (10-42) IU/L ALT (10-60) IU/L Alkaline Phosphatase (42-121) IU/L Troponin I 0.07 0.05 (<0.49) ng/mL Total Protein (6.7-8.2) g/dL Albumin (3.2-5.5) g/dL Globulin (2.1-4.2) g/dL 06/19/17 06/19/17 Range/Units 08:30 08:30 Sodium 139 (135-145) mmol/L Potassium 3.4 L (3.5-5.0) mmol/L Chloride 113 H (101-111) mmol/L Carbon Dioxide 19 L (21-32) mmol/L Anion Gap 7.0 (6-13) BUN 12 (6-20) mg/dL Creatinine 1.7 H (0.6-1.2) mg/dL Estimated GFR (MDRD) 40 L (>89) Glucose 103 H (70-100) mg/dL Lactic Acid (0.5-2.2) mmol/L Calcium 7.8 L (8.5-10.3) mg/dL Total Bilirubin 1.2 H (0.2-1.0) mg/dL Direct Bilirubin 0.3 (0.1-0.5) mg/dL AST 36 (10-42) IU/L ALT 19 (10-60) IU/L Alkaline Phosphatase 44 (42-121) IU/L Troponin I (<0.49) ng/mL Total Protein 4.6 L (6.7-8.2) g/dL Albumin 2.3 L (3.2-5.5) g/dL Globulin 2.3 (2.1-4.2) g/dL Impression and Recommendations - Palliative Care Impression: This is a 71-year-old gentleman with metastatic melanoma to the lungs, who has been treated with immunotherapy. He has a history of diffuse large B-cell lymphoma, as well as atrial fib, and recent N STEMI. He continues to present with altered mental status, encephalopathy symptoms, and has ruled out metastatic disease. Discussion focus on transitioning to hospice as a discharge plan, would like to continue to treat for infection, though recognizes this may or may not improve his current condition. Recommendations/Counseling Done: 1. Metastatic melanoma to the lungs, status post treatment of immunotherapy. Rule out for brain metastases with MRI was performed today, unfortunately this still leaves the patient without improvement and continued neurologic decline. 2. Agitation. Patient did receive 1 mg IV Ativan, with significant apnea and sedation for MRI. I would recommend given patient's nativity, to initiate Lorazepam 0.25 mg bucally every 4 hours for management and trial prior to discharge to hospice to titrate dosing. 3. Advanced care planning. Family conference and support provided for , regarding transitioning to hospice. She is in agreement along with support from her family including her daughter and his sister, to transition on discharge to hospice support. The complexity is and finding a place given financial stressors. [facility] residential director Tatum Leavitt was contacted, will do interview tomorrow afternoon, if acceptable by both parties will transfer Saturday. Hospice aware, and will plan accordingly. Altagracia to follow up with [facility] tomorrow, as a "plan b" may need to transfer to [facility] under Medicaid and Hospice. Will need assistance from [facility] for transportation to [facility], and/or follow on [facility] if that is not the final plan. Altagracia would like to continue current treatment in "hoping" for some improvement particularly of his cognitive status, though recognizes this is unlikely. Anticipatory guidance provided. Time Spent: 45 minutes with greater than 50% of this done in counseling coordination of care and anticipatory guidance provided
[2017-06-19] MEDS ORDERED: VANCOMYCIN 1.5 GM/NS 500 ML 1.5 GM/500 ML BAG IV SCH (20:00)
--- NOTE | 2017-06-19 20:44 | XRAY Report ---
EXAM: RIGHT KNEE RADIOGRAPHY EXAM DATE: 06/19/2017 08:13 PM. CLINICAL HISTORY: Warm and pink with pain. COMPARISON: None. TECHNIQUE: 2 views. FINDINGS: Bones: Osteopenia. No definite fracture or other bone lesion. Joints: Normal. No effusion. No subluxations. Soft Tissues: Unremarkable. IMPRESSION: No acute disease. [facility] Referring Provider Line: [phone] SITE ID: [id number]
[2017-06-20] MEDS: PIPERACILLIN/TAZOBACTAM 4.5 GM in SODIUM CHLORIDE 0.9% MINIBAG 100 ML IV SCH ×3 (03:09→17:30)
[2017-06-20] MEDS: metroNIDAZOLE 500 MG/100 ML 500 MG/100 ML BAG IV SCH ×2 (05:12→13:40)
[2017-06-20 06:45] LABS: CALCIUM 7.8 mg/dL (8.5-10.3); CREATININE 1.8 mg/dL (0.6-1.2)
[2017-06-20] MEDS: FAMOTIDINE 20 MG/50 ML 50 ML IV SCH (07:53)
[2017-06-20] MEDS: HYDROmorphone 1 MG/ML SYRINGE IVP PRN ×4 (07:54→19:59)
[2017-06-20] MEDS: ASPIRIN CHEW 81 MG TABLET PO SCH (07:56)
[2017-06-20] MEDS: OXYMETAZOLINE NASAL SPRAY NAS SCH (07:56)
[2017-06-20] MEDS: MULTIVITAMIN TABLET PO SCH (07:56)
[2017-06-20] MEDS: MIN OIL/DIMETHICON/COCONUT OIL 92 GM TUBE TOP SCH (07:56)
[2017-06-20] MEDS: SODIUM CHLORIDE FLUSH 0.9% 10 ML SYRINGE IVP SCH ×2 (07:57→19:23)
[2017-06-20] MEDS: POLYETHYLENE GLYCOL 3350 17 GM PACKET PO SCH (07:57)
[2017-06-20] MEDS: SODIUM CHLORIDE 1 GM TABLET PO SCH (07:57)
[2017-06-20] MEDS ORDERED: ELECTROLYTE-A SOLUTION 1,000 ML IV SCH (08:00)
--- NOTE | 2017-06-20 08:03 | PROVIDER PROGRESS NOTE ---
Subjective - Prog Note Date Prog Note Date: 06/20/17 Prog Note Time: 11:24 - Subjective Subjective: he is worsening in that eyes are closed now. completely nonverbal today. Yesterday got two words out of him. Continues to moan or grunt but can't tell me where he hurts. No fever since 06/18/17. BP stable. Knee film done yesterday is nml. MRI of head did not reveal mets. I added flagyl and vancomycin to broaden coverage yesterday but no change in status with this. Overall, he's had decreasing mentation for 4 days. Slowly became less and less verbal, less and less awake, was at least watching us yesterday and today eyes closed. No po intake for >48 hours since he spits out food. Current Medications - Current Medications Current Medications: Active Medications Acetaminophen (Tylenol) 650 mg PO Q4HR PRN PRN Reason: Pain or Fever > 38C (100.4F) Last Admin: 06/16/17 01:09 Dose: 650 mg Aspirin (St Jose Aspirin) 81 mg PO DAILY [facility] Last Admin: 06/20/17 07:56 Dose: Not Given Calamine (Calamine) 1 applic TOP PRN PRN PRN Reason: ITCHING Last Admin: 06/17/17 17:59 Dose: 1 applic Diphenhydramine HCl (Benadryl Inj) 12.5 mg IVP Q8H PRN PRN Reason: Allergy Symptoms Last Admin: 06/17/17 17:51 Dose: 12.5 mg Hydromorphone HCl (Dilaudid Inj Syringe) 0.5 mg IVP Q2H PRN PRN Reason: Pain 8 to 10 Last Admin: 06/20/17 07:54 Dose: 0.5 mg Piperacillin Sod/Tazobactam (Sod 4.5 gm/ Sodium Chloride) 100 mls @ 200 mls/hr IV Q6H [facility] Last Infusion: 06/20/17 03:46 Dose: Infused Acetaminophen (Ofirmev) 100 mls @ 400 mls/hr IV Q6HR PRN PRN Reason: Pain or Fever > 38C (100.4F) Last Infusion: 06/19/17 16:10 Dose: Infused Dextrose/Sodium Chloride (D5ns) 1,000 mls @ 80 mls/hr IV .[id number] [facility] Last Infusion: 06/20/17 07:53 Dose: Infused Famotidine (Pepcid 20 Mg/50 Ml) 50 mls @ 100 mls/hr IV DAILY [facility] Last Admin: 06/20/17 07:53 Dose: 100 mls/hr Metronidazole (Flagyl 500 Mg/100 Ml) 500 mg in 100 mls @ 100 mls/hr IV Q6HR [facility] Last Infusion: 06/20/17 07:55 Dose: Infused Vancomycin/Sodium Chloride (Vanco/Sod Chloride 0.9%) 1.5 gm in 500 mls @ 250 mls/hr IV Q24H [facility] Last Infusion: 06/19/17 22:09 Dose: Infused Potassium Chloride (Potassium Chloride) 10 meq in 100 mls @ 100 mls/hr IV Q1H [facility] Stop: 06/20/17 11:59 Mineral Oil (Cavilon) 1 applic TOP BID [facility] Last Admin: 06/20/17 07:56 Dose: 1 applic Morphine Sulfate (Roxanol) 4 mg PO Q2HR PRN PRN Reason: PAIN Last Admin: 06/19/17 14:24 Dose: 4 mg Multivitamins (Theragran) 1 tab PO DAILY [facility] Last Admin: 06/20/17 07:56 Dose: Not Given Ondansetron HCl (Zofran Inj) 4 mg IVP Q6HR PRN PRN Reason: Nausea / Vomiting Oxymetazoline HCl (Afrin) 2 sprays SANYA BID [facility] Last Admin: 06/20/17 07:56 Dose: 2 spr Polyethylene Glycol (Miralax) 17 gm PO DAILY [facility] Last Admin: 06/20/17 07:57 Dose: Not Given Sodium Chloride (Normal Saline Flush 0.9%) 10 ml IVP PRN PRN PRN Reason: NEEDED PER PROVIDER ORDERS Last Admin: 06/19/17 17:57 Dose: 10 ml Sodium Chloride (Normal Saline Flush 0.9%) 10 ml IVP 0100,0900,1700 [facility] Last Admin: 06/20/17 07:57 Dose: Not Given Sodium Chloride (Salt Tab) 1 gm PO DAILY [facility] Last Admin: 06/20/17 07:57 Dose: Not Given Temazepam (Restoril) 15 mg PO QPM PRN PRN Reason: Insomnia Terazosin HCl 10 mg PO DAILY 04/21/13 Senna [Senokot] 8.6 mg PO BID PRN 12/04/16 Digoxin 125 mcg PO DAILY 05/21/17 Nitroglycerin 0.4 mg PO Q5M PRN 05/21/17 Aspirin Chewable [St Jose Aspirin] 81 mg PO DAILY 05/24/17 Multivitamin [Multiple Vitamins] 1 each PO DAILY 05/24/17 Loperamide [Imodium] 2 mg PO PRN PRN MDD 6 06/15/17 Objective - Vital Signs/Intake & Output Reviewed Vital Signs: Yes Vital Signs: Vital Signs x48h Temp Pulse Resp BP BP Pulse Ox 06/20/17 07:30 37.1 C 80 20 110/70 97 06/20/17 05:00 37.1 C 81 16 136/94 H 100 Intake & Output: Intake & Output 06/17/17 06/18/17 06/19/17 06/20/17 23:59 23:59 23:59 23:59 Intake Total 2750.000 2314 2962.001 707.999 Output Total 098 448 5134 1000 Balance 7943.523 9477 -1262.999 -292.001 - Objective General Appearance: positive: Mild distress (as manifested by moaning and groaning but no tachypnea or tachycardia), Lethargic Eyes Bilateral: positive: PERRL, EOMI, Other (sclera muddy) ENT: positive: Dry mucous membranes Neck: positive: No JVD. negative: Stiff neck, Carotid bruit Respiratory: positive: Chest non-tender, No respiratory distress. negative: Wheezes, Rales, Rhonchi Cardiovascular: positive: Regular rate & rhythm. negative: Systolic murmur, Gallop/S4 Abdomen: positive: Non-tender, No organomegaly, Nml bowel sounds, No distention Skin: positive: Warm, Dry Extremities: positive: No pedal edema Neurologic/Psychiatric: positive: CN's nml (2-12), Other (he is starting to stiffen his muscles, doesn't want to move and actively resists us examining him) . negative: Disoriented to person, Disoriented to place, Disoriented to time - Lab Results Fish Bones: 06/17/17 05:20 06/20/17 06:30 Other Labs: Lab Results x24hrs 06/20/17 06/19/17 06/19/17 Range/Units 06:30 17:50 17:50 Sodium 141 (135-145) mmol/L Potassium 3.4 L (3.5-5.0) mmol/L Chloride 117 H (101-111) mmol/L Carbon Dioxide 17 L (21-32) mmol/L Anion Gap 7.0 (6-13) BUN 11 (6-20) mg/dL Creatinine 1.8 H (0.6-1.2) mg/dL Estimated GFR (MDRD) 37 L (>89) Glucose 77 (70-100) mg/dL Lactic Acid 1.3 (0.5-2.2) mmol/L Calcium 7.8 L (8.5-10.3) mg/dL Total Bilirubin (0.2-1.0) mg/dL Direct Bilirubin (0.1-0.5) mg/dL AST (10-42) IU/L ALT (10-60) IU/L Alkaline Phosphatase (42-121) IU/L Troponin I 0.07 (<0.49) ng/mL Total Protein (6.7-8.2) g/dL Albumin (3.2-5.5) g/dL Globulin (2.1-4.2) g/dL 06/19/17 06/19/17 06/19/17 Range/Units 14:21 08:30 08:30 Sodium 139 (135-145) mmol/L Potassium 3.4 L (3.5-5.0) mmol/L Chloride 113 H (101-111) mmol/L Carbon Dioxide 19 L (21-32) mmol/L Anion Gap 7.0 (6-13) BUN 12 (6-20) mg/dL Creatinine 1.7 H (0.6-1.2) mg/dL Estimated GFR (MDRD) 40 L (>89) Glucose 103 H (70-100) mg/dL Lactic Acid (0.5-2.2) mmol/L Calcium 7.8 L (8.5-10.3) mg/dL Total Bilirubin 1.2 H (0.2-1.0) mg/dL Direct Bilirubin 0.3 (0.1-0.5) mg/dL AST 36 (10-42) IU/L ALT 19 (10-60) IU/L Alkaline Phosphatase 44 (42-121) IU/L Troponin I 0.05 (<0.49) ng/mL Total Protein 4.6 L (6.7-8.2) g/dL Albumin 2.3 L (3.2-5.5) g/dL Globulin 2.3 (2.1-4.2) g/dL Assessment/Plan - Problem List (1) Altered mental status Impression: Less responsive on 06/17 and between then and now has become nonverbal and eyes closed. DD: 1. Infection. I have reviewed his films and no discrete neck abcess.Exam still has changes of neck dissection and resection of primary melanoma. He did have sinusitis. no pneumonia on films. Neck mass unchanged on right neck and may be postop changes. Does have tender, warm, slightly pink right knee and he wouldn't extend yesterday, film negative. blood cultures have been negative. Lactic acid was nml. no UTI and abd nontender. His bili is 1.2 but no RUQ pain w palpation. 2. Drugs. Chemo a possibility but too far out from last dose however, Lyric Cruz feels that supervisor intermediates side effects may be associated with some of this and not on benzo's here. I have started pain meds but only today. His change occurred before that. On restoril prn. Doubt zosyn would do this 3. Cardiac w GA. His EKG is negative. Troponin negative. Did have a recent GA 4. Stroke/mets to brain. MRI w and wo genevieve is negative today. Dr. Schreiber contacted and she now feels his metastatic melanoma is not the cause of this problem. 5. Metabolic/electrolyte derangment is not severe 6. Slow in onset and no chest pain, or hypoxia so I doubt PE. I am at a loss and have shared that with his . Added vancomycin, flagyl yesterday to broaden coverage No LP for now. may start scaling back and [facility] coming to evaluate him. Qualifiers: Altered mental status type: disorientation Qualified Code(s): R41.0 - Disorientation, unspecified (2) Cellulitis of neck Impression: Fever spiked skimmer hours of 06/17 to 38.7 and 39.9. None since 06/18. Blood cultures neg from 3/2 Pt on IV Zosyn. Added vancomycin and flagyl and no change. (3) Sinusitis Qualifiers: Sinusitis location: maxillary Assessment/Plan: IV Zosyn will cover this bacteria as well. Continue Afrin nasal spray for 3-4 days. (4) Dehydration Assessment/Plan: Creat increased to 1.6 on 06/17 then 1.9 06/18, then today 1.8. Will increase fluids from 40-80 cc/hr. He had some hypotension so I gave a fluid bolus but it made him more sob so I gave lasix and good output. Nutrition consult pending regarding type of diet. And she said he has cognitive dysphagia with defensive spitting out of food. Comfort intake only is her recommendation. If do feed him, keep him upright. (5) Hyponatremia and Hypokalemia Assessment/Plan: NA Improving every day. Will supplement K today. Continue to follow BMP. (6) Metastatic melanoma Assessment/Plan: No evidence of mets on brain CT or neck imaging, but he has known metastatic disease to lungs. MRI of head today negative for mets.
[2017-06-20] MEDS: POTASSIUM CHLOR 10 MEQ/100 ML 10 MEQ/100 ML BAG IV SCH ×4 (08:59→12:50)
[2017-06-20] MEDS: ACETAMINOPHEN 1,000 MG/100 ML 100 ML IV PRN (14:45)
[2017-06-20] MEDS: SODIUM CHLORIDE FLUSH 0.9% 10 ML SYRINGE IVP PRN (20:00)
[2017-06-21] MEDS: MORPHINE SOL 10 MG/0.5 ML SYRINGE PO PRN ×3 (01:06→06:24)
[2017-06-21] MEDS: SODIUM CHLORIDE FLUSH 0.9% 10 ML SYRINGE IVP SCH ×4 (01:21→23:52)
[2017-06-21] MEDS: LORazepam 2 MG/ML VIAL IVP PRN (01:22)
[2017-06-21] MEDS: SODIUM CHLORIDE FLUSH 0.9% 10 ML SYRINGE IVP PRN (01:22)
--- NOTE | 2017-06-21 09:26 | ONCOLOGY / HEMATOLOGY ---
DATE OF SERVICE: 06/18/2017 Physician: John Schreiber MD DIAGNOSES 1. Metastatic melanoma involving lungs with bilateral pulmonary nodules, BRAF negative. On nivolumab and ipilimumab since February 2017, recently on maintenance nivolumab only. 2. Recent heart attack with congestive heart failure. 3. Hospitalization for right neck cellulitis and the mental status changes. INTERVAL HISTORY: Patient was seen in the hospital. He was admitted a few days ago for fever, mental status changes, and progressive weakness. His CT neck showed possible cellulitis involving his right neck. He has been getting antibiotics and the swelling has decreased. I talked to his and she said that patient had been feeling progressively weak for the last 2 weeks. He was mostly in bed. His appetite was down and he was eating very little at the home. He developed right neck swelling a week ago. He spiked a fever of 39 degrees on June 17. Earlier this morning, he had a fever of 37.9. His blood pressure has been soft. PAST MEDICAL HISTORY: As above. He had a CT scan of the head without contrast upon presentation, and it was unremarkable. PHYSICAL EXAMINATION GENERAL: He is alert but very sleepy. He is oriented. He recognized me and asked appropriate questions. He appears very tired and weak. SKIN: No rash. EXTREMITIES: Legs no edema. LABORATORY DATA: Labs showed a WBC of 8.6, hematocrit 32.9, hemoglobin 10.9, platelet count at 327. His chemistry panel from today showed a creatinine of 1.8, yesterday was 1.6, potassium 3.4. BNP 520. CT soft tissue neck, obtained on June 15, showed inflammatory findings in the area of right sternocleidomastoid muscle and the dorsal to it without a discrete underlying abscess. There is clear thickening of the right-sided cervical facial fascia. Overall features most suggestive of cellulitis/myositis. ASSESSMENT AND PLAN 1. Mental status changes in the setting of metastatic melanoma. I would like to obtain a brain MRI to rule out intracranial metastases. 2. Metastatic melanoma with recent radiographic progression. We will continue to hold the nivolumab for now. Overall, his performance status is poor. It will be unlikely that he will continue to benefit from nivolumab if his performance status does not improve. 3. Right neck cellulitis, seemed to have improved with IV antibiotics. cc: TRISH Butt, SHANNAN, TRISH Arzate MD TD: 06/18/2017 21:24
--- NOTE | 2017-06-21 09:27 | CONSULTATION NOTE ---
Palliative Care Follow Up - Referral Referring Provider: Dr. Deanna Freedman Time of Visit: [id number] Referral setting: Hospitalized patient Referral Reason: End of Life Care/Met. Melanoma - Information Sources Records reviewed: RN notes reviewed, Previous records reviewed History/Review of Systems obtained from: Family (Met with Altagracia at bedside) Exam limitations: Clinical condition (patient nonresponsive and transitioning) - History of Present Illness Update Brief HPI Update: Patient with metastatic melanoma to the lungs, admitted with acute mental status changes, has been treated with multiple antibiotics without any improvement. Patient is continued to deteriorate, unable to eat or drink, decision last night was made to transition to comfort measures only. Patient presents today with periods of apnea of 10-15 seconds, he is resting comfortably , he has continued to run fevers and be tachycardic. at bedside, daughter joined us later. Had facilitated plan for hospice transition and admit, patient imminently transitioning, will have a a hospital. Social History - Living Situation Living arrangement: At home Living Situation: With spouse/s.o., With family Medications/Allergies - Medications Active Medication List: Active Medications Acetaminophen (Tylenol) 650 mg PO Q4HR PRN PRN Reason: Pain or Fever > 38C (100.4F) Last Admin: 06/16/17 01:09 Dose: 650 mg Atropine Sulfate (Isopto Atropine 1% Ophth Drops) 1 - 4 drops SL Q2H PRN PRN Reason: Excessive secretions Calamine (Calamine) 1 applic TOP PRN PRN PRN Reason: ITCHING Last Admin: 06/17/17 17:59 Dose: 1 applic Diphenhydramine HCl (Benadryl Inj) 12.5 mg IVP Q8H PRN PRN Reason: Allergy Symptoms Last Admin: 06/17/17 17:51 Dose: 12.5 mg Hydromorphone HCl (Dilaudid Inj Syringe) 0.5 mg IVP Q2H PRN PRN Reason: Pain 8 to 10 Last Admin: 06/20/17 19:59 Dose: 0.5 mg Acetaminophen (Ofirmev) 100 mls @ 400 mls/hr IV Q6HR PRN PRN Reason: Pain or Fever > 38C (100.4F) Last Infusion: 06/20/17 15:20 Dose: Infused Lorazepam (Ativan Inj (Vial)) 1 mg IVP Q6H PRN PRN Reason: Anxiety/Agitation Last Admin: 06/21/17 01:22 Dose: 1 mg Morphine Sulfate (Roxanol) 4 mg PO Q2HR PRN PRN Reason: PAIN Last Admin: 06/21/17 06:24 Dose: 4 mg Ondansetron HCl (Zofran Inj) 4 mg IVP Q6HR PRN PRN Reason: Nausea / Vomiting Sodium Chloride (Normal Saline Flush 0.9%) 10 ml IVP PRN PRN PRN Reason: NEEDED PER PROVIDER ORDERS Last Admin: 06/21/17 01:22 Dose: 20 ml Sodium Chloride (Normal Saline Flush 0.9%) 10 ml IVP 0100,0900,1700 [facility] Last Admin: 06/21/17 01:21 Dose: 10 ml Terazosin HCl 10 mg PO DAILY 04/21/13 Senna [Senokot] 8.6 mg PO BID PRN 12/04/16 Digoxin 125 mcg PO DAILY 05/21/17 Nitroglycerin 0.4 mg PO Q5M PRN 05/21/17 Aspirin Chewable [St Jose Aspirin] 81 mg PO DAILY 05/24/17 Multivitamin [Multiple Vitamins] 1 each PO DAILY 05/24/17 Loperamide [Imodium] 2 mg PO PRN PRN MDD 6 06/15/17 - Allergies Allergies/Adverse Reactions: Allergies Allergy/AdvReac Type Severity Reaction Status Date / Time No Known Drug Allergies Allergy Verified 05/08/17 16:06 Review of Systems - Constitutional Constitutional: reports: Fever, Other (no intake for several days) - Respiratory Respiratory: reports: Other (irregular breathing patterns) - Genitourinary Genitourinary: reports: Other (newell catheter) - Musculoskeletal Musculoskeletal: reports: Other (nonresponsive) - Neurological Neurological: denies: Seizures - Other Findings Other Findings: limited ROS Physical Exam - Vital Signs Vital Signs: Vital Signs x48h Resp BP 06/21/17 08:19 24 95/58 L - Physical Exam General Appearance: positive: Nonresponsive Eyes Bilateral: positive: Other (eyes closed) ENT: positive: Dry mucous membranes Neck: positive: Trachea midline Cardiovascular: positive: Tachycardia Respiratory: positive: Diminished in bases, Other (apniec). negative: Wheezes Abdomen: positive: Soft Skin: positive: Pallor Extremities: positive: Pedal edema (slight pedal edema) Neurologic/Psychiatric: positive: Other (nonresponsive) Palliative Care - POLST Patient has POLST: Yes POLST Status: DNR Pain: Comment (nursing medicating for signs of distress or discomfort with good response) - Palliative Care Discussion: Met at bedside, she is at peace with her decision. Aware were in the waiting period. I did spend time doing life review, reminiscing, patient does have arrangements made at would be [facility]. Counseling done regarding signs and symptoms of dying process. Psychosocial support was provided. Daughter and her joined us later, no questions or concerns expressed Results - Lab Results Fish Bones: 06/17/17 05:20 06/20/17 06:30 Lab and Imaging Results: Lab Results x24hrs 06/17/17 Range/Units 05:20 Vit D 1,25-Dihyd Total 32 (18-72) pg/mL 1,25 Dihydroxy Vit D2 <8 pg/mL 1,25 Dihydroxy Vit D3 32 pg/mL Impression and Recommendations - Palliative Care Impression: This is a unfortunate 71-year-old gentleman who continues to have decline, he is nonresponsive today, he is having apneic periods and vital signs are reflecting imminent demise. Palliative care support for end-of-life counseling. Patient will remain in hospital for comfort care, do not recommend transition or transfer during this time. Recommendations/Counseling Done: 1.Actively dying. Focuses on comfort, appropriate comfort medications available , nursing is doing a fabulous job of monitoring for signs and symptoms of discomfort and medicating appropriately. Psychosocial support is provided. [facility] and hospice contacted regarding patient's will not be transferring today. Palliative care gearman will follow up with family as well. Time Spent: Time spent 30 minutes with 50% of this done and coordination of care, counseling transfer to [facility] and hospice, psychosocial support as well as anticipatory guidance provided
--- NOTE | 2017-06-21 18:56 | PROVIDER PROGRESS NOTE ---
Subjective - Prog Note Date Prog Note Date: 06/21/17 Prog Note Time: 18:54 - Subjective Subjective: he spiked a temp today and is not better. and family feel he should transition to comfort measures only. I stopped all meds last night and only on MS, ativan, atropine drops. he is comfortable. hiccups only. opened his eyes once. Current Medications - Current Medications Current Medications: Active Medications Acetaminophen (Tylenol) 650 mg PO Q4HR PRN PRN Reason: Pain or Fever > 38C (100.4F) Last Admin: 06/16/17 01:09 Dose: 650 mg Atropine Sulfate (Isopto Atropine 1% Ophth Drops) 1 - 4 drops SL Q2H PRN PRN Reason: Excessive secretions Calamine (Calamine) 1 applic TOP PRN PRN PRN Reason: ITCHING Last Admin: 06/17/17 17:59 Dose: 1 applic Diphenhydramine HCl (Benadryl Inj) 12.5 mg IVP Q8H PRN PRN Reason: Allergy Symptoms Last Admin: 06/17/17 17:51 Dose: 12.5 mg Hydromorphone HCl (Dilaudid Inj Syringe) 0.5 mg IVP Q2H PRN PRN Reason: Pain 8 to 10 Last Admin: 06/20/17 19:59 Dose: 0.5 mg Acetaminophen (Ofirmev) 100 mls @ 400 mls/hr IV Q6HR PRN PRN Reason: Pain or Fever > 38C (100.4F) Last Infusion: 06/20/17 15:20 Dose: Infused Lorazepam (Ativan Inj (Vial)) 1 mg IVP Q6H PRN PRN Reason: Anxiety/Agitation Last Admin: 06/21/17 01:22 Dose: 1 mg Morphine Sulfate (Roxanol) 4 mg PO Q2HR PRN PRN Reason: PAIN Last Admin: 06/21/17 06:24 Dose: 4 mg Ondansetron HCl (Zofran Inj) 4 mg IVP Q6HR PRN PRN Reason: Nausea / Vomiting Sodium Chloride (Normal Saline Flush 0.9%) 10 ml IVP PRN PRN PRN Reason: NEEDED PER PROVIDER ORDERS Last Admin: 06/21/17 01:22 Dose: 20 ml Sodium Chloride (Normal Saline Flush 0.9%) 10 ml IVP 0100,0900,1700 [facility] Last Admin: 06/21/17 13:56 Dose: 10 ml Terazosin HCl 10 mg PO DAILY 04/21/13 Senna [Senokot] 8.6 mg PO BID PRN 12/04/16 Digoxin 125 mcg PO DAILY 05/21/17 Nitroglycerin 0.4 mg PO Q5M PRN 05/21/17 Aspirin Chewable [St Jose Aspirin] 81 mg PO DAILY 05/24/17 Multivitamin [Multiple Vitamins] 1 each PO DAILY 05/24/17 Loperamide [Imodium] 2 mg PO PRN PRN MDD 6 06/15/17 Objective - Vital Signs/Intake & Output Reviewed Vital Signs: Yes Vital Signs: Vital Signs x48h Temp Pulse Resp BP Pulse Ox 06/21/17 15:47 39.1 C H 142 H 20 97/72 93 Intake & Output: Intake & Output 06/18/17 06/19/17 06/20/17 06/21/17 23:59 23:59 23:59 23:59 Intake Total 2314 2962.001 1682.999 856.667 Output Total 775 4225 1500 650 Balance 1539 -1262.999 182.999 206.667 - Objective General Appearance: positive: Mild distress Eyes Bilateral: positive: PERRL ENT: positive: Dry mucous membranes Neck: positive: No JVD. negative: Stiff neck, Carotid bruit Respiratory: positive: Chest non-tender, No respiratory distress, Rhonchi Cardiovascular: positive: Regular rate & rhythm, Systolic murmur. negative: Gallop/S4, Friction rub Abdomen: positive: Nml bowel sounds, No distention Skin: positive: Pallor, Other (cool to touch) Extremities: positive: Pedal edema Neurologic/Psychiatric: positive: Other (responsive to pain and occ voice. no spontaneous movement. periods of apnea) - Lab Results Fish Bones: 06/17/17 05:20 06/20/17 06:30 Other Labs: Lab Results x24hrs 06/17/17 Range/Units 05:20 Vit D 1,25-Dihyd Total 32 (18-72) pg/mL 1,25 Dihydroxy Vit D2 <8 pg/mL 1,25 Dihydroxy Vit D3 32 pg/mL Assessment/Plan - Problem List (1) Altered mental status Impression: never really improved and deteriorated even w treatment. w his hx of Stage IV melanoma, wants comfort measures only I feel he is immenently dying and see no point in transferring to [facility] at this time.
[2017-06-22] MEDS: MORPHINE SOL 10 MG/0.5 ML SYRINGE PO PRN ×3 (02:17→21:12)
[2017-06-22] MEDS: SODIUM CHLORIDE FLUSH 0.9% 10 ML SYRINGE IVP SCH ×2 (12:36→13:05)
[2017-06-22] MEDS: ACETAMINOPHEN 1,000 MG/100 ML 100 ML IV PRN (12:48)
[2017-06-22] MEDS: diphenhydrAMINE INJ 50 MG/ML VIAL IVP PRN (16:07)
[2017-06-22] MEDS: SODIUM CHLORIDE FLUSH 0.9% 10 ML SYRINGE IVP PRN ×2 (16:07→19:33)
[2017-06-22 16:23] VITALS: BP 91/59
--- NOTE | 2017-06-22 19:15 | PROVIDER PROGRESS NOTE ---
Subjective - Prog Note Date Prog Note Date: 06/22/17 Prog Note Time: 19:13 - Subjective Subjective: family still holding roberts. having sinus pauses and apnea. Current Medications - Current Medications Current Medications: Active Medications Acetaminophen (Tylenol) 650 mg PO Q4HR PRN PRN Reason: Pain or Fever > 38C (100.4F) Last Admin: 06/16/17 01:09 Dose: 650 mg Atropine Sulfate (Isopto Atropine 1% Ophth Drops) 1 - 4 drops SL Q2H PRN PRN Reason: Excessive secretions Calamine (Calamine) 1 applic TOP PRN PRN PRN Reason: ITCHING Last Admin: 06/17/17 17:59 Dose: 1 applic Diphenhydramine HCl (Benadryl Inj) 12.5 mg IVP Q8H PRN PRN Reason: Allergy Symptoms Last Admin: 06/22/17 16:07 Dose: 12.5 mg Hydromorphone HCl (Dilaudid Inj Syringe) 0.5 mg IVP Q2H PRN PRN Reason: Pain 8 to 10 Last Admin: 06/20/17 19:59 Dose: 0.5 mg Acetaminophen (Ofirmev) 100 mls @ 400 mls/hr IV Q6HR PRN PRN Reason: Pain or Fever > 38C (100.4F) Last Infusion: 06/22/17 13:04 Dose: Infused Lorazepam (Ativan Inj (Vial)) 1 mg IVP Q6H PRN PRN Reason: Anxiety/Agitation Last Admin: 06/21/17 01:22 Dose: 1 mg Morphine Sulfate (Roxanol) 4 mg PO Q2HR PRN PRN Reason: PAIN Last Admin: 06/22/17 12:42 Dose: 4 mg Ondansetron HCl (Zofran Inj) 4 mg IVP Q6HR PRN PRN Reason: Nausea / Vomiting Sodium Chloride (Normal Saline Flush 0.9%) 10 ml IVP PRN PRN PRN Reason: NEEDED PER PROVIDER ORDERS Last Admin: 06/22/17 16:07 Dose: 10 ml Sodium Chloride (Normal Saline Flush 0.9%) 10 ml IVP 0100,0900,1700 MIGNON Last Admin: 06/22/17 13:05 Dose: 10 ml Terazosin HCl 10 mg PO DAILY 04/21/13 Senna [Senokot] 8.6 mg PO BID PRN 12/04/16 Digoxin 125 mcg PO DAILY 05/21/17 Nitroglycerin 0.4 mg PO Q5M PRN 05/21/17 Aspirin Chewable [[place] Aspirin] 81 mg PO DAILY 05/24/17 Multivitamin [Multiple Vitamins] 1 each PO DAILY 05/24/17 Loperamide [Imodium] 2 mg PO PRN PRN MDD 6 06/15/17 Objective - Vital Signs/Intake & Output Reviewed Vital Signs: Yes Vital Signs: Vital Signs x48h Temp Pulse Resp BP Pulse Ox 06/22/17 16:20 36.8 C 62 20 91/59 L 100 Intake & Output: Intake & Output 06/19/17 06/20/17 06/21/17 06/22/17 23:59 23:59 23:59 23:59 Intake Total 2962.001 1682.999 856.667 100 Output Total 4225 1500 800 600 Balance -1262.999 182.999 56.667 -500 - Objective General Appearance: positive: No acute distress, Other (eye open to my voice. I ask if he's in pain and looks right at me but nonverbal.) Eyes Bilateral: positive: PERRL, EOMI ENT: positive: Dry mucous membranes Neck: positive: No JVD Respiratory: positive: Chest non-tender, Rhonchi Cardiovascular: positive: Regular rate & rhythm, Systolic murmur. negative: Gallop/S4, Friction rub - Lab Results Fish Bones: 06/17/17 05:20 06/20/17 06:30 Assessment/Plan - Problem List (3) Comfort measures only status Impression: has been slowly but surely deterioratng in spite of tx this last week. is imminent.
[2017-06-22] MEDS: LORazepam 2 MG/ML VIAL IVP PRN (19:33)
[2017-06-22] MEDS: ATROPINE 1% OPHTH DROPS 2 ML SL PRN (21:56)
[2017-06-23] MEDS: SODIUM CHLORIDE FLUSH 0.9% 10 ML SYRINGE IVP SCH ×3 (01:51→09:45)
[2017-06-23] MEDS: MORPHINE SOL 10 MG/0.5 ML SYRINGE PO PRN (03:29)
[2017-06-23] MEDS: LORazepam 2 MG/ML VIAL IVP PRN (09:24)
[2017-06-23] MEDS: ACETAMINOPHEN 1,000 MG/100 ML 100 ML IV PRN (09:26)
[2017-06-23] MEDS: CALAMINE/ZINC OXIDE 118 ML BOTTLE TOP PRN (09:30)
[2017-06-23] MEDS: ATROPINE 1% OPHTH DROPS 2 ML SL PRN (09:31)
--- NOTE | 2017-06-23 12:38 | PROVIDER PROGRESS NOTE ---
Subjective - Prog Note Date Prog Note Date: 06/23/17 Prog Note Time: 12:15 - Subjective Subjective: called by RN to pronounce this unfortunate gentleman, Ed. he has been receiving comfort care for the last few days and was imminently in the process of dying. Family has been at the bedside. and RN at the bedside when he . Objective - Vital Signs/Intake & Output Intake & Output: Intake & Output 06/20/17 06/21/17 06/22/17 06/24/17 23:59 23:59 23:59 00:59 Intake Total 1682.999 856.667 100 100 Output Total 1500 800 750 200 Balance 182.999 56.667 -650 -100 - Objective Comments/Other: patient has no spontaneous respiration for a minute. No spontaneous pulse. pupils fixed and dilated. - Lab Results Fish Bones: 06/17/17 05:20 06/20/17 06:30 Assessment/Plan - Problem List (4) in medical facility Impression: patient prounced at 12/15 pm. as made arrangements from [facility].
--- NOTE | 2017-06-23 14:08 | Discharge Plan ---
Discharge Plan Disposition: 20 Condition: Critical No Smoking: If you smoke, Please STOP! Call for help. Follow-up with: Reji Bronson MD [Primary Care Provider] -
--- NOTE | 2017-06-23 22:20 | DISCHARGE SUMMARY ---
Physician: Gris Pearson MD DATE OF ADMISSION: 06/14/2017 DATE OF : 06/23/2017 DISCHARGE DIAGNOSES 1. Fever of unknown origin. 2. Myositis of unknown etiology right sternocleidomastoid. 3. Metabolic encephalopathy. 4. Stage IV melanoma with mets to lung and bones. 5. Chronic atrial fibrillation. 6. Dehydration. 7. Sinusitis on CT. 8. Hyponatremia. PRINCIPAL PROCEDURES 1. Palliative Care consult. 2. Chest x-ray with multiple bilateral lung nodules and enlargement of some of the nodules in the left lower lung with retrocardiac infiltrate or atelectasis and a small left effusion. 3. Head CT with no intracranial hemorrhage, masses, or discrete acute intraaxial process. Chronic appearing right greater than left maxillary sinusitis. 4. Brain MRI with partial opacification of the right maxillary sinus and layering fluid. Polypoid mucosal thickening seen in the inferior portion of the left maxillary sinus. Mucosal thickening seen involving the frontal and ethmoid sinuses greater on the left. Opacification involving the inferior left mastoid. He had no acute hemorrhage, mass effect, or infarct. No evidence of metastatic disease to the brain. 5. Knee x-ray with no acute disease. 6. Blood cultures negative after 5 days. 7. Echocardiogram with left ventricular enlargement that is mild. Overall, left ventricular systolic function severely impaired with an ejection fraction of 20% to 25%. Mild right ventricular enlargement. Right ventricular systolic function is mildly impaired. Severe increase in left atrial volume index. Moderate to severe right atrial enlargement. Mild to moderate mitral regurgitation. HOSPITAL COURSE: This gentleman has metastatic melanoma and is followed by [facility]. His original diagnosis was his right ear and he had surgical resection. 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 He had further surgical resection with positive margins. This is in November 2016. In his staging workup, he was found to have metastatic nodules to his lungs and was initiated on immunotherapy. Most recent CT scan 05/14/2017 showed progression of disease with the largest nodule 4.1 cm in his right lung base. He received immunotherapy. His last receive immunotherapy of D5 was 2 weeks ago. Unfortunately, all of this was complicated by an admission to [facility] in April. He had a STEMI with significant heart failure and ejection fraction documented below 20% and at times 15%. He has not been doing well for the last 2 weeks and he is bedbound, has little p.o. intake, soft loose stools, and becoming more and more sleepy and more and more dehydrated. He was to see his with primary care provider in followup 06/14/2017. In the attempts to get him into the car, he was so weak he was almost falling. As such, he was brought to our emergency room. Initially, he was treated as hypotension, bradycardia, and dehydration with mild acute kidney injury because of all this. His known metastatic disease was noted, but he did not have a fever and he did not have an elevated white cell count. At that point in time, it was felt to be dehydration from side effects of his immune modulating drug and his gradually progressive metastatic disease. He then began spiking temperatures and had continued reduction and deterioration of his mental status. He became sleepier and sleepier and less and less responsive. In looking for infection, urine was looked at; lungs were looked at , and CT of the neck was done to see if there was any infection in the right neck where he had deformity of previous surgical resection. There was nonspecific inflammation of the sternocleidomastoid muscle on the right, which was either myositis or cellulitis. As such, antibiotics were started and he was treated empirically for that. He was also noted to have sinusitis. In spite of antibiotic therapy that was aggressive, the patient continued to deteriorate. He finally became unresponsive and was nonverbal. Fevers continued to spike. At this point in time, we discussed possible other sources of infection such as viral infection and I wondered if I should do a lumbar puncture for CMV or herpes encephalitis. We had also obtained an MRI to see if he had melanoma to the brain. Palliative Care consult felt that some of all of this could be due to just effects of the immune modulating drugs that could happen for up to 6 months after use. In either case, the point became moot because his decided that it was time to transition him from Palliative Care to hospice care. However, the patient was imminently dying. We decided not to transfer to [facility] and kept him in the hospital. He eventually on 06/23/2017 at 12:15 p.m. Family had been at the bedside every day. At the moment of , his and nurse were at the bedside. I was called to pronounce the patient and there was no spontaneous respiration, pulse, and pupils were fixed and dilated. Greater than 30 minutes was spent at coordinating his discharge/removal to his home. TD: 06/23/2017 22:18 PRASHANT
== END 2017-06-23 12:15 | disposition expired | DRG 314 ==
LOC: ED 11:57 → MS2 18:22
PROVIDERS: ADMIT Internal Medicine; ATTEND Specialist
DX: I95.9 Hypotension, unspecified (principal); G93.41 Metabolic encephalopathy; R53.1 Weakness; C79.51 Secondary malignant neoplasm of bone; C79.9 Secondary malignant neoplasm of unspecified site; C78.00 Secondary malignant neoplasm of unspecified lung; C90.00 Multiple myeloma not having achieved remission; Z85.72 Personal history of non-Hodgkin lymphomas; I48.91 Unspecified atrial fibrillation; Z79.82 Long term (current) use of aspirin; E87.1 Hypo-osmolality and hyponatremia; K21.9 Gastro-esophageal reflux disease without esophagitis; N28.9 Disorder of kidney and ureter, unspecified; N17.9 Acute kidney failure, unspecified; L03.221 Cellulitis of neck; Z51.5 Encounter for palliative care; R50.9 Fever, unspecified; M60.9 Myositis, unspecified; C43.9 Malignant melanoma of skin, unspecified; I48.2 Chronic atrial fibrillation; E86.0 Dehydration; J32.9 Chronic sinusitis, unspecified; R00.1 Bradycardia, unspecified; D64.9 Anemia, unspecified; I25.10 Atherosclerotic heart disease of native coronary artery without angina pectoris; I25.2 Old myocardial infarction; N40.0 Benign prostatic hyperplasia without lower urinary tract symptoms; R19.7 Diarrhea, unspecified; R21 Rash and other nonspecific skin eruption; F32.9 Major depressive disorder, single episode, unspecified; R32 Unspecified urinary incontinence; Z66 Do not resuscitate; R63.0 Anorexia; Z68.28 Body mass index [BMI] 28.0-28.9, adult; E87.6 Hypokalemia
CPT/HCPCS: 36415; 51702; 70470; 70491; 70553; 71045; 80048; 80053; 80076; 80162; 81001; 81003; 82652; 83605; 83690; 83735; 83880; 84484; 85025; 87040; 87086; 93005; 93306; 96360; 99222; 99232; 99233; 99284; 99285